=== PATIENT | female | born 1945 | race Caucasian/White ===

== ENCOUNTER 2017-08-08 09:53 | Inpatient (IN) ==
[2017-08-08] MEDS ORDERED: Ipratropium/Albuterol Neb 3 ML IH ONE (10:00)
--- NOTE | 2017-08-08 10:15 | Emergency Department Note ---
Disposition Clinical Impression: NSTEMI (non-ST elevated myocardial infarction) Congestive heart failure Qualifiers: Congestive heart failure type: unspecified congestive heart failure type Congestive heart failure chronicity: acute Qualified Code(s): I50.9 - Heart failure, unspecified Disposition: Admitted As Inpatient Condition: Fair Time of Disposition: 12:34 SOB HPI - General Chief Complaint: ED Shortness of Breath/Dyspnea Stated Complaint: MANJIT Time Seen by Provider: 08/08/17 10:00 Source: patient Limitations: no limitations Nursing Notes Reviewed: Yes Vital Signs Reviewed: Yes - History of Present Illness Ms. John, a 71-year-old female, presents from home for evaluation of her dyspnea. Onset 3 weeks ago and progressive right. Patient has low-grade and he temperatures, chills. She notes increased swelling of her bilateral lower extremities. PMH: Remote cancer, diabetes type 2, hypertension, hyperlipidemia. No history CAD or ACS. No history of CHF. No history COPD, asthma, emphysema. - Related Data Home Medications Medication Instructions Recorded Confirmed Amlodipine Besylate 10 mg PO DAILY 08/08/17 08/08/17 Amoxicillin/Clavulanate [Augmentin] 875 mg PO BID 08/08/17 08/08/17 Aspirin [Lo-Dose Aspirin EC] 81 mg PO DAILY 08/08/17 08/08/17 Cyclobenzaprine [Flexeril] 10 mg PO TID 08/08/17 08/08/17 Gabapentin [Neurontin] 300 mg PO HS 08/08/17 08/08/17 Losartan Potassium [Cozaar] 100 mg PO DAILY 08/08/17 08/08/17 Pioglitazone HCl [Actos] 30 mg PO DAILY 08/08/17 08/08/17 Polyethylene Glycol 3350 [MiraLAX 1 scoop PO DAILY 08/08/17 08/08/17 Powder Bulk 17.9 Oz] Potassium Chloride [Klor-Con 10] 10 meq PO DAILY 08/08/17 08/08/17 Sertraline [Zoloft] 50 mg PO DAILY 08/08/17 08/08/17 Simvastatin [Zocor] 40 mg PO HS 08/08/17 08/08/17 Tramadol HCl [Ultram] 50 mg PO QID PRN 08/08/17 08/08/17 hydroCHLOROthiazide 25 mg PO DAILY 08/08/17 08/08/17 [Hydrochlorothiazide] Allergies Allergy/AdvReac Type Severity Reaction Status Date / Time codeine Allergy Rash Verified 08/08/17 09:56 All systems ED: reviewed and negative except as stated. Review of Systems: As Per HPI Past Medical History - Past Medical History Medical history: Reports: cancer, diabetes Psychiatric history: Reports: no psych history - Social History Smoking Status: Former smoker Alcohol use: Reports: none Drug use: Reports: none Physical Exam Vital Signs Reviewed General: Patient is alert, oriented, and in moderate respiratory distress-she is hypoxic on room air to 80%, tachycardic, tachypneic. HEENT: No facial asymmetry. Head is normocephalic and atraumatic. PERRLA, EOMI. oral mucosa moist. Trachea midline. Cardiovascular: Heart tachycardic rate and regular rhythm without clicks, rubs, gallops, or murmurs. No JVD. PMI nondisplaced. Plus bilateral pitting edema. Bilateral radial and posterior tibial pulses 2/40. Respiratory: Symmetric chest rise with good respiratory effort. Bilateral breath sounds are clear without wheezing, crackles, or rhonchi. Abdomen: Obese. Bowel sounds present normoactive x-4 quadrants. Abdomen is soft, nondistended, and nontender. Neuro: GCS 15. Skin: Warm, dry, intact. Psych: Patient's affect is appropriate for situation. - General Limitations: no limitations General appearance: alert, in no apparent distress Course Course Narrative: SIRS (+) via tachypnea, tachycardia. Clinically suspect acute exacerbation of previously undiagnosed congestive heart failure. Will hold on IV fluid resuscitation at this time. Will place patient on BiPAP. Patient symptomatically is much improved on BiPAP. She has mild anxiety; provide a small dose of Valium. Patient's initial EKG shows flattening of EKGs due to and V3. Otherwise no ST- T changes. Troponin returned significantly elevated at 4.15. Repeat EKG shows the 1.5-[address] elevations in the preseptal leads with subtle reciprocal changes. 12:00 Discussed the patient with Dr. Coley. Discussed EKG changes, troponin, her lack of chest pain. He advised to call his STEMI alert. He came down to evaluate the patient and is agreeable to taken to [facility]. He has received aspirin and brilanta chewed and crushed at this time. 12:30 Dr. Cormier came down to the ER to see and evaluate the patient as well as her EKGs. We discussed her story with him. Not convincing for his STEMI however still concerning; they will take her to the catheter lab. He requests admission to medicine service with cardiology following. His gas the patient with Dr. Torres, the admitting hospitalist, who agrees to accept the patient for continued evaluation and management. Vital Signs Temperature 99.4 F 08/08/17 09:56 Pulse Rate 114 08/08/17 09:56 Respiratory Rate 36 08/08/17 09:56 Blood Pressure 120/86 08/08/17 09:56 O2 Sat by Pulse Oximetry 92 08/08/17 09:56 Temperature 99.4 F 08/08/17 09:56 Pulse Rate 105 08/08/17 12:41 Respiratory Rate 27 08/08/17 12:41 Blood Pressure 119/74 08/08/17 12:41 O2 Sat by Pulse Oximetry 97 08/08/17 12:41 Oxygen Delivery Oxygen Delivery Bipap Shortness of Breath/Dyspnea - MDM Narrative Medical decision making narrative: I examined this patient and my medical decision-making was reviewed with the Resident Physician. I agree with the documented findings, disposition and treatment plan as described except to the extent set forth below. Patient seen and evaluated by Dr. Mansfield and myself, I agree with his evaluation and management plan, supervising care the patient's stay. Patient presents today with increasing dyspnea edema in the lower ankles and chest discomfort but no chest pain. No abdominal pain no headache no back pain. Per her history it sounds like she has a history of CHF in the past. Going to do a workup, chest x -ray labs EKG and then reassess. Most likely she will need admission. Starting her on BiPAP at this point. She is in agreement with this plan as is family. 1004 hrs.: Patient EKG performed shows a sinus tachycardia with PVCs, a lot of movement artifact. QRS is 71 QTc is 322 she has global low voltage. She does have what appears to be some elevation in V1 through V2 but due to the baseline pattern is cannot be determined. She was having no chest pain at that time. Compared with an old EKG and shows potential changes however that her EKG is from 1996 1100 hrs.: We will add on a lactate and we are holding off on fluids even though she qualifies for Sirs criteria as she does not look toxic, she is in CHF and I do not want a further fluid overload her. Spoke with hospitalist he is agreeing to her admission. As is the patient. 1156 hrs.: Patient is a second EKG performed shows a sinus tachycardia rate 106 has PVCs. Has a QRS of [address] segment elevation V1 through V4 which is new. She still is no chest pain. Paging cardiology. Chest X-Ray 08/08/17 10:00 IMPRESSION: Cardiomegaly with suspected dependent pulmonary edema in the mid and lower lung donnelly. There may also be a small right-sided pleural effusion at the costophrenic angle. D/ / Sarbjit Salvador MD / Sarbjit Salvador MD Interpreting Provider: Sarbjit Salvador MD 1205: Patient's troponin is elevated. She denies any chest pain this time. She has gotten aspirin. Her lactate elevated which is most likely from that. But we will add on a four-hour lactate in case she is septic. I do not see signs of infection. I do not a fluid overload her with her pulmonary edema that surety has. I menaced ache with the flipping machine operator and then to the hospitalist. Hospitalist is are not aware of the case. We will see how hospitalist and cardiology wants to proceed. Impression is acute CHF, elevated lactate, elevated troponin most likely non-STEMI. Repeating EKG at this time. 1210 hrs.: Spoke with Dr. العراقي, he said despite her not having pain with her troponin and her EKG did go ahead and do a STEMI alert. Also paged vascular access that she has been a need a second line in. Updating the patient. Patient did have her medications today. We will start her on heparin and she will go to [facility] and then admission. Impression is in STEMI and acute CHF. Patient's critical care time exclusive a separately billable procedures is 50 minutes. 1220 hrs.: Dr. العراقي's come down and seen the patient and EKGs he has had taken to the [facility]. They have ordered meds has second IV in place and will go straight catheter lab at this time and that admission. 1320 hrs.: Spoke with Dr. Torres who is agreed to the admission. He wanted to get an ABG, if that looks good he think she can go to stepdown instead of ICU. That is ordered at this time. - Lab Data Result diagrams: 08/08/17 11:08/08/17 11:01 Lab Results 08/08/17 08/08/17 08/08/17 Range/Units 11: 11: 11: WBC 10.5 (4.3-11.1) K/mcL RBC 3.17 L (3.82-4.97) M/mcL Hgb 9.0 L (11.5-15.4) g/dL Hct 28.4 L (35.3-44.9) % MCV 89.6 (83.0-100.0) fL MCH 28.4 (28.0-33.3) pg MCHC 31.7 (31.6-35.5) g/dL RDW 14.6 H (11.5-14.5) % Plt Count 330 (140-400) K/mcL MPV 10.4 (9.4-12.4) fL Immature Gran % 2.3 (0-4) % Seg Neutrophils % 78.1 % Lymphocytes % 12.0 % Monocytes % 7.0 % Eosinophils % 0.1 % Basophils % 0.5 % Neutrophils # 8.2 (1.6-8.9) K/mcL Lymphocytes # 1.3 (0.6-4.6) K/mcL Monocytes # 0.7 (0.0-1.3) K/mcL Eosinophils # 0.0 (0.0-0.6) K/mcL Basophils # 0.1 (0.0-0.2) K/mcL Nucleated RBCs/100 WBC 0.2 H (0) /100 WBC APTT (26.0-36.0) Seconds Sodium 135 L (136-145) mEq/L Potassium 3.7 (3.5-4.5) mEq/L Chloride 98 (98-109) mEq/L Carbon Dioxide 23 (19-29) mEq/L BUN 31 H (7-20) mg/dL Creatinine 1.66 H (0.57-1.11) mg/dL Est GFR ( Amer) 37 L (> 60) Est GFR (Non-Af Amer) 31 L (> 60) BUN/Creatinine Ratio 19 (6-26) Glucose 271 H (70-99) mg/dL Calculated Osmolality 296 (280-300) Lactic Acid (0.5-2.2) mmol/L Calcium 9.3 (8.6-10.8) mg/dL Phosphorus 3.4 (2.3-4.7) mg/dL Magnesium 2.0 (1.6-2.6) mg/dL Total Bilirubin 0.6 (0.2-1.2) mg/dL Direct Bilirubin 0.3 (0.0-0.5) mg/dL Indirect Bilirubin 0.3 (0.0-1.2) mg/dL AST 32 (5-34) Units/L ALT 26 (0-55) Units/L Alkaline Phosphatase 109 (38-126) Units/L Troponin I 4.15 H* (0-0.03) ng/mL B-Natriuretic Peptide (0-100) pg/mL Serum Total Protein 7.8 (6.0-8.3) g/dL Albumin 3.0 L (3.5-5.0) g/dL Globulin 4.8 H (2.4-3.5) g/dL Albumin/Globulin Ratio 0.6 L (1.1-2.2) 08/08/17 08/08/17 08/08/17 Range/Units 11:01 11:01 11:01 WBC (4.3-11.1) K/mcL RBC (3.82-4.97) M/mcL Hgb (11.5-15.4) g/dL Hct (35.3-44.9) % MCV (83.0-100.0) fL MCH (28.0-33.3) pg MCHC (31.6-35.5) g/dL RDW (11.5-14.5) % Plt Count (140-400) K/mcL MPV (9.4-12.4) fL Immature Gran % (0-4) % Seg Neutrophils % % Lymphocytes % % Monocytes % % Eosinophils % % Basophils % % Neutrophils # (1.6-8.9) K/mcL Lymphocytes # (0.6-4.6) K/mcL Monocytes # (0.0-1.3) K/mcL Eosinophils # (0.0-0.6) K/mcL Basophils # (0.0-0.2) K/mcL Nucleated RBCs/100 WBC (0) /100 WBC APTT 30.6 (26.0-36.0) Seconds Sodium (136-145) mEq/L Potassium (3.5-4.5) mEq/L Chloride (98-109) mEq/L Carbon Dioxide (19-29) mEq/L BUN (7-20) mg/dL Creatinine (0.57-1.11) mg/dL Est GFR ( Amer) (> 60) Est GFR (Non-Af Amer) (> 60) BUN/Creatinine Ratio (6-26) Glucose (70-99) mg/dL Calculated Osmolality (280-300) Lactic Acid 2.7 H (0.5-2.2) mmol/L Calcium (8.6-10.8) mg/dL Phosphorus (2.3-4.7) mg/dL Magnesium (1.6-2.6) mg/dL Total Bilirubin (0.2-1.2) mg/dL Direct Bilirubin (0.0-0.5) mg/dL Indirect Bilirubin (0.0-1.2) mg/dL AST (5-34) Units/L ALT (0-55) Units/L Alkaline Phosphatase (38-126) Units/L Troponin I (0-0.03) ng/mL B-Natriuretic Peptide 1970 H (0-100) pg/mL Serum Total Protein (6.0-8.3) g/dL Albumin (3.5-5.0) g/dL Globulin (2.4-3.5) g/dL Albumin/Globulin Ratio (1.1-2.2) 08/08/17 Range/Units 12:24 WBC (4.3-11.1) K/mcL RBC (3.82-4.97) M/mcL Hgb (11.5-15.4) g/dL Hct (35.3-44.9) % MCV (83.0-100.0) fL MCH (28.0-33.3) pg MCHC (31.6-35.5) g/dL RDW (11.5-14.5) % Plt Count (140-400) K/mcL MPV (9.4-12.4) fL Immature Gran % (0-4) % Seg Neutrophils % % Lymphocytes % % Monocytes % % Eosinophils % % Basophils % % Neutrophils # (1.6-8.9) K/mcL Lymphocytes # (0.6-4.6) K/mcL Monocytes # (0.0-1.3) K/mcL Eosinophils # (0.0-0.6) K/mcL Basophils # (0.0-0.2) K/mcL Nucleated RBCs/100 WBC (0) /100 WBC APTT (26.0-36.0) Seconds Sodium (136-145) mEq/L Potassium (3.5-4.5) mEq/L Chloride (98-109) mEq/L Carbon Dioxide (19-29) mEq/L BUN (7-20) mg/dL Creatinine (0.57-1.11) mg/dL Est GFR ( Amer) (> 60) Est GFR (Non-Af Amer) (> 60) BUN/Creatinine Ratio (6-26) Glucose (70-99) mg/dL Calculated Osmolality (280-300) Lactic Acid 2.2 (0.5-2.2) mmol/L Calcium (8.6-10.8) mg/dL Phosphorus (2.3-4.7) mg/dL Magnesium (1.6-2.6) mg/dL Total Bilirubin (0.2-1.2) mg/dL Direct Bilirubin (0.0-0.5) mg/dL Indirect Bilirubin (0.0-1.2) mg/dL AST (5-34) Units/L ALT (0-55) Units/L Alkaline Phosphatase (38-126) Units/L Troponin I (0-0.03) ng/mL B-Natriuretic Peptide (0-100) pg/mL Serum Total Protein (6.0-8.3) g/dL Albumin (3.5-5.0) g/dL Globulin (2.4-3.5) g/dL Albumin/Globulin Ratio (1.1-2.2)
[2017-08-08] MEDS ORDERED: diazePAM 10 MG/2 ML SYRINGE IVP STA (10:40)
[2017-08-08 11:11] LABS: Basophils # 0.1 K/mcL (0.0-0.2); Basophils % 0.5 %; Eosinophils % 0.1 %; Hematocrit 28.4 % (35.3-44.9); Immature Granulocytes % 2.3 % (0-4); Lymphocytes # 1.3 K/mcL (0.6-4.6); Mean Corpuscular HGB Conc 31.7 g/dL (31.6-35.5); Mean Corpuscular Hemoglobin 28.4 pg (28.0-33.3); Mean Corpuscular Volume 89.6 fL (83.0-100.0); Mean Platelet Volume 10.4 fL (9.4-12.4); Monocytes # 0.7 K/mcL (0.0-1.3); Neutrophils # 8.2 K/mcL (1.6-8.9); Nucleated Red Blood Cells 0.2 /100 WBC (0); Platelet Count 330 K/mcL (140-400); Red Blood Count 3.17 M/mcL (3.82-4.97); Red Cell Distribution Width 14.6 % (11.5-14.5); Segmented Neutrophils % 78.1 %
[2017-08-08 11:24] LABS: Calcium 9.3 mg/dL (8.6-10.8); Potassium 3.7 mEq/L (3.5-4.5)
[2017-08-08] MEDS ORDERED: Aspirin 81 MG TAB.CHEW PO ONE (11:50)
[2017-08-08 12:08] LABS: Activated Partial Thrombo Time 30.6 Seconds (26.0-36.0)
[2017-08-08 12:12] LABS: Albumin/Globulin Ratio 0.6 (1.1-2.2); Bilirubin,Direct 0.3 mg/dL (0.0-0.5); Bilirubin,Indirect 0.3 mg/dL (0.0-1.2); Bilirubin,Total 0.6 mg/dL (0.2-1.2); Globulin 4.8 g/dL (2.4-3.5); Phosphorous 3.4 mg/dL (2.3-4.7); Total Protein 7.8 g/dL (6.0-8.3)
[2017-08-08] MEDS ORDERED: *HR* Ticagrelor 90 MG TABLET ONE (12:13)
[2017-08-08] MEDS ORDERED: *HR* Heparin 5,000 UNIT/ML VIAL ONE (12:13)
[2017-08-08] MEDS ORDERED: Aspirin 81 MG TAB.CHEW ONE (12:14)
[2017-08-08] MEDS ORDERED: Furosemide 40 MG/4 ML VIAL IVP ONE (13:54)
[2017-08-08 13:56] LABS: ABG Base Excess 1 mEq/L (-2 to 3); ABG HCO3 24 mEq/L (21-27); ABG Oxygen Saturation 98 % (95-98); ABG PCO2 30 mmHg (35-45); ABG PH 7.51 pH Units (7.32-7.45); ABG PO2 87 mmHg (85-104); ABG TCO2 25 mEq/L (20-26)
[2017-08-08] MEDS ORDERED: Furosemide 20 MG/2 ML VIAL IVP ONE (13:58)
[2017-08-08] MEDS ORDERED: *HR* Heparin 5,000 UNIT/ML VIAL IVP ONE (14:09)
[2017-08-08] MEDS ORDERED: *HR* Heparin 5,000 UNIT/ML VIAL IVP PRN (14:09)
[2017-08-08] MEDS ORDERED: Naloxone 0.4 MG/ML INJ IVP PRN (14:09)
[2017-08-08] MEDS ORDERED: *HR* LORazepam 2 MG/ML VIAL IVP PRN (14:16)
[2017-08-08] MEDS ORDERED: Ipratropium/Albuterol Neb 3 ML IH PRN (14:18)
[2017-08-08] MEDS ORDERED: *HR* OxyCODONE Immed Rel 5 MG TABLET PO PRN (14:19)
[2017-08-08] MEDS ORDERED: Dextrose Gel 15 GM PO PRN ×2 (14:24)
[2017-08-08] MEDS ORDERED: D5% in Water 1,000 ML IVC PRN (14:24)
[2017-08-08] MEDS ORDERED: *HR* Dextrose 50 % in Water (Syg) 50 ML SYRINGE IVP PRN (14:24)
[2017-08-08] MEDS ORDERED: Potassium Phosphate 44 MEQ in 0.9 % Sodium Chloride 250 ML IVPB PRN (14:26)
[2017-08-08] MEDS ORDERED: Aspirin Enteric Coated 81 MG Tablet PO SCH (14:30)
--- NOTE | 2017-08-08 14:31 | Pulmonology History & Physical ---
<RussellSmith nelson - Last Filed: 08/08/17 14:29> Date of Encounter: 08/08/17 Time of Encounter: 14:29 Assessment and Plan (1) Acute respiratory failure Current visit: Yes Status: Acute Patient presented with acute shortness of breath as well as hypoxia requiring oxygen supplementation. Likely multifactorial with pulmonary edema, community- acquired pneumonia, myocardial ischemia, anxiety all contributing. Patient has responded well to oxygen supplementation and states that she feels much better when using BiPAP, we will continue BiPAP when necessary. Duonebs every 6 when necessary. Qualifiers: Respiratory failure complication: hypoxia Qualified Code(s): J96.01 - Acute respiratory failure with hypoxia (2) NSTEMI (non-ST elevated myocardial infarction) Current visit: Yes Status: Acute Patient presented with acute shortness of breath as discussed above. EKG and troponins were performed in the emergency department, troponin was elevated at 4 , EKG shows ST elevation in V2, V3. Patient does have Q waves. Patient was evaluated by cardiology in the emergency department and felt that she was not a candidate for cath at this time given her likely old ME with Q waves present as well as her inability to lie flat due to pulmonary edema and anxiety. Patient was given aspirin in the emergency department, will continue with aspirin 81 mg daily, as well as Lipitor 40 mg daily. Patient will be placed on a low-dose heparin drip. Trend troponins. Check stat echocardiogram. Cardiology has been consulted. (3) Community acquired pneumonia Current visit: Yes Status: Acute Patient presents with shortness of breath, cough with yellowish-green sputum. No leukocyte ptosis present, chest x-ray shows bilateral opacifications, likely multifactorial with infiltrate and urinary edema. Will place on broad-spectrum antibiotics with Rocephin and Levaquin. Qualifiers: Laterality: unspecified laterality Qualified Code(s): J18.9 - Pneumonia, unspecified organism (4) Jeuoy-yh-aoifakv kidney injury Current visit: Yes Status: Acute Patient presents with elevated creatinine at 1.66. Baseline appears to be around 1.3. Nonoliguric. We will diuresis due to fluid overload. Heaton has been placed for strict I's and O's. Continue monitor creatinine and urine output. Qualifiers: Acute renal failure type: unspecified Chronic kidney disease stage: stage 3 (moderate) Qualified Code(s): N17.9 - Acute kidney failure, unspecified; N18.3 - Chronic kidney disease, stage 3 (moderate); N18.3 - Chronic kidney disease, stage 3 (moderate) (5) Anxiety Current visit: Yes Status: Acute Patient presents with significant anxiety due to her underlying medical conditions as discussed above. We will give Ativan 1 mg every 6 as needed and iodine. Patient feels better with BiPAP so we will use this as needed. (6) Diabetes mellitus type 2 in obese Current visit: Yes Status: Acute Blood sugar elevated on presentation. We will hold all diabetic medications and institute sliding scale insulin. Continue monitor blood sugars and adjust as needed. (7) Hypertension Current visit: Yes Status: Acute Qualifiers: Hypertension type: essential hypertension Qualified Code(s): I10 - Essential (primary) hypertension (8) DVT prophylaxis Current visit: Yes Status: Acute Patient is on a low-dose heparin drip, further DVT prophylaxis is not indicated. History of Present Illness Chief complaint: Dyspnea HPI: Ms. John is a 71 year old female with history of obesity, hypertension, type 2 diabetes who presents with shortness of breath. Patient states that her shortness of breath has been going on for about a month. She states it is worse when lying flat. She reports a cough with yellowish-green sputum. She denies any chest pain. She reports increased swelling in her lower extremities. She has fever, chills, chest pain, nausea, vomiting, diarrhea, abdominal pain. Past Med Surg Social Fam HX - Past Medical History Medical history: arthritis, cancer, diabetes, hypertension Psychiatric history: anxiety - Past Surgical History Surgical History: appendectomy, cholecystectomy, hysterectomy - Social History Smoking Status: Former smoker Alcohol use: none Drug use: none - Family History Son Living Status: Age at : 34 Hx Family Cancer: Yes (lymphoma) Medications and Allergies Amlodipine Besylate 10 mg PO DAILY 08/08/17 [History] Amoxicillin/Clavulanate [Augmentin] 875 mg PO BID 08/08/17 [History] Aspirin [Lo-Dose Aspirin EC] 81 mg PO DAILY 08/08/17 [History] Cyclobenzaprine [Flexeril] 10 mg PO TID 08/08/17 [History] Gabapentin [Neurontin] 300 mg PO HS 08/08/17 [History] Losartan Potassium [Cozaar] 100 mg PO DAILY 08/08/17 [History] Pioglitazone HCl [Actos] 30 mg PO DAILY 08/08/17 [History] Polyethylene Glycol 3350 [MiraLAX Powder Bulk 17.9 Oz] 1 scoop PO DAILY [History] Potassium Chloride [Klor-Con 10] 10 meq PO DAILY 08/08/17 [History] Sertraline [Zoloft] 50 mg PO DAILY 08/08/17 [History] Simvastatin [Zocor] 40 mg PO HS 08/08/17 [History] Tramadol HCl [Ultram] 50 mg PO QID PRN 08/08/17 [History] hydroCHLOROthiazide [Hydrochlorothiazide] 25 mg PO DAILY 08/08/17 [History] 3 Allergy/AdvReac Type Severity Reaction Status Date / Time codeine Allergy Rash Verified 08/08/17 09:56 All Systems: A 10-system review of systems was performed and is negative for pertinent findings except as documented above in the HPI. - Constitutional Constitutional: no chills, no fever(s) - EENT Nose, mouth and throat: no sinus pain, no sinus pressure, no sore throat - Cardiovascular Cardiovascular: dyspnea, dyspnea on exertion, edema, orthopnea, no chest pain, no irregular heart rhythm, no paroxysmal nocturnal dyspnea, no syncope - Respiratory Respiratory: cough, dyspnea, dyspnea on exertion, chest congestion, excessive phlegm production, change in phlegm color, no hemoptysis, no wheezing - Gastrointestinal Gastrointestinal: no diarrhea, no nausea, no vomiting - Genitourinary Genitourinary: no dysuria - Musculoskeletal Musculoskeletal: no stiffness, no tingling - Neurological Neurological: no numbness, no tingling - Psychiatric Psychiatric: anxiety - Endocrine Endocrine: polydipsia, polyuria Physical Examination Vital Signs: Vital Signs, Last 4 Hours Temp Pulse Resp BP Pulse Ox 08/08/17 13:22 105 08/08/17 13:10 99.6 F 110 26 128/63 97 08/08/17 12:41 105 27 119/74 97 08/08/17 12:36 106 31 97/76 98 General appearance: appears uncomfortable ENT: oropharynx moist Neck: supple Effort: mildly labored Auscultation: bilateral: rales (Bibasilar) Cardiovascular: regular rate and rhythm Gastrointestinal: normoactive bowel sounds, soft, non-tender, non-distended Extremities: no cyanosis, no clubbing, edema (2+ lower extremity bilaterally) normal mental status, non-focal exam anxious Results - Laboratory Findings CBC and BMP: 08/08/17 11:01 08/08/17 11:01 ABG ABG pH 7.51 pH Units (7.32-7.45) H 08/08/17 13:52 ABG pCO2 30 mmHg (35-45) L 08/08/17 13:52 ABG pO2 87 mmHg (85-104) 08/08/17 13:52 ABG O2 Saturation 98 % (95-98) 08/08/17 13:52 Abnormal lab findings: Abnormal lab results RBC 3.17 M/mcL (3.82-4.97) L 08/08/17 11:01 Hgb 9.0 g/dL (11.5-15.4) L 08/08/17 11:01 Hct 28.4 % (35.3-44.9) L 08/08/17 11:01 RDW 14.6 % (11.5-14.5) H 08/08/17 11:01 Nucleated RBCs/100 WBC 0.2 /100 WBC (0) H 08/08/17 11:01 ABG pH 7.51 pH Units (7.32-7.45) H 08/08/17 13:52 ABG pCO2 30 mmHg (35-45) L 08/08/17 13:52 Sodium 135 mEq/L (136-145) L 08/08/17 11:01 BUN 31 mg/dL (7-20) H 08/08/17 11:01 Creatinine 1.66 mg/dL (0.57-1.11) H 08/08/17 11:01 Est GFR ( Amer) 37 (> 60) L 08/08/17 11:01 Est GFR (Non-Af Amer) 31 (> 60) L 08/08/17 11:01 Glucose 271 mg/dL (70-99) H 08/08/17 11:01 POC Glucose 290 (58-89) H 08/08/17 13:17 Troponin I 4.39 ng/mL (0-0.03) H* 08/08/17 12:34 B-Natriuretic Peptide 1970 pg/mL (0-100) H 08/08/17 11:01 Albumin 3.0 g/dL (3.5-5.0) L 08/08/17 11:01 Globulin 4.8 g/dL (2.4-3.5) H 08/08/17 11:01 Albumin/Globulin Ratio 0.6 (1.1-2.2) L 08/08/17 11:01 <Laith Crain S - Last Filed: 08/08/17 19:18> Date of Encounter: 08/08/17 History of Present Illness HPI: Ms. John is a 71 year old female All Systems: A 10-system review of systems was performed and is negative for pertinent findings except as documented above in the HPI. Physical Examination Vital Signs: Vital Signs, Last 4 Hours Pulse Resp BP Pulse Ox 08/08/17 17:00 97 22 111/74 100 08/08/17 16:00 101 24 129/83 100 08/08/17 15:00 101 20 115/88 98 08/08/17 14:00 105 24 111/77 100 08/08/17 13:52 37 100 Results - Laboratory Findings CBC and BMP: 08/08/17 17:15 08/08/17 17:15 ABG ABG pH 7.51 pH Units (7.32-7.45) H 08/08/17 13:52 ABG pCO2 30 mmHg (35-45) L 08/08/17 13:52 ABG pO2 87 mmHg (85-104) 08/08/17 13:52 ABG O2 Saturation 98 % (95-98) 08/08/17 13:52 PT/INR, D-dimer PT 14.7 Seconds (9.4-12.1) H 08/08/17 11:01 Abnormal lab findings: Abnormal lab results RBC 3.17 M/mcL (3.82-4.97) L 08/08/17 11:01 Hgb 9.0 g/dL (11.5-15.4) L 08/08/17 11:01 Hct 28.4 % (35.3-44.9) L 08/08/17 11:01 RDW 14.6 % (11.5-14.5) H 08/08/17 11:01 Nucleated RBCs/100 WBC 0.2 /100 WBC (0) H 08/08/17 11:01 PT 14.7 Seconds (9.4-12.1) H 08/08/17 11:01 ABG pH 7.51 pH Units (7.32-7.45) H 08/08/17 13:52 ABG pCO2 30 mmHg (35-45) L 08/08/17 13:52 Sodium 135 mEq/L (136-145) L 08/08/17 11:01 BUN 31 mg/dL (7-20) H 08/08/17 11:01 Creatinine 1.66 mg/dL (0.57-1.11) H 08/08/17 11:01 Est GFR ( Amer) 37 (> 60) L 08/08/17 11:01 Est GFR (Non-Af Amer) 31 (> 60) L 08/08/17 11:01 Glucose 271 mg/dL (70-99) H 08/08/17 11:01 POC Glucose 274 (58-89) H 08/08/17 17:15 Troponin I 4.39 ng/mL (0-0.03) H* 08/08/17 12:34 B-Natriuretic Peptide 1970 pg/mL (0-100) H 08/08/17 11:01 Albumin 3.0 g/dL (3.5-5.0) L 08/08/17 11:01 Globulin 4.8 g/dL (2.4-3.5) H 08/08/17 11:01 Albumin/Globulin Ratio 0.6 (1.1-2.2) L 08/08/17 11:01 Urine Protein 30 mg/dL (Neg-Trace) H 08/08/17 14:23 Urine Bilirubin Small (Negative) H 08/08/17 14:23 Ur Leukocyte Esterase Small (Negative) H 08/08/17 14:23 Urine Microscopic RBC 5-15 per hpf (0-3) H 08/08/17 14:23 Urine Microscopic WBC 5-15 per hpf (0-3) H 08/08/17 14:23 Ur Squamous Epith Cells Many per lpf (None-Few) H 08/08/17 14:23 Ur Culture Indicated? YES (NO) A 08/08/17 14:23 - Attending Attestation I saw the patient with the resident agree with History and Physical exam findings. Labs and Radiology were reviewed BIPAP S/T 14/05 FUNDING SPECIALIST: Patient is conscious oriented x3 following commands NECK : No JVD appreciated Pulmonary : Patient has hypoxic respiratory failure has moderate respiratory distress secondary to acute exacerbation of heart failure CXR showed more likely pulmonary edema with some right lower lobe opacity patient is tolerating BIPAP well will continue i dont think presentation fits with COPD exacerbation Cardiac : CHF exacerbation most likley due to NSTEMI , cardiology not to cath now will start on Heparin will continue medical management will continue gentle diuresis as hemodynamics and kidney function tolerates Nutrition/GI: Patient is NPO , PPI prophylaxis Renal : Acute on Chronic Kidney injury can be due to Cardiorenal syndrome Heme onc : No acute issues Endo: Diabetes on insulin ID : Patient had increased sputum and production when she started to have CHF symptoms Musculo skeletal / skin issues : No acute issues Disposition : Patient critical condition high chance of cardiopulmonary decline Code status: Full Code Family/POA: Daughter . Spent 35 minutes of Critical time spent in making decisions to prevent further vital organ deterioration.Patient continued to need critical care monitoring.
[2017-08-08 14:32] LABS: Bilirubin,Urine Small (Negative); Blood,Urine Negative (Negative); Color,Urine Dark Yellow (Yellow); Glucose,Urine (UA) Normal (Normal); Ketones,Urine Negative (Negative); Leukocyte Esterase,Urine Small (Negative); Nitrite,Urine Negative (Negative); PH,Urine 5.5 pH Units (5.0-8.0); Protein,Urine 30 mg/dL (Neg-Trace); Specific Gravity,Urine 1.025 (1.010-1.025); Urobilinogen,Urine Normal (Normal)
[2017-08-08 14:36] LABS: Bacteria,Urine None Seen per hpf (None-Few); Hyaline Casts,Urine None Seen per lpf (None-Few); Squamous Epithelial Cell,Urine Many per lpf (None-Few)
[2017-08-08 14:40] LABS: Clarity,Urine Clear (Clear)
[2017-08-08 14:43] LABS: INR 1.4; Prothrombin Time 14.7 Seconds (9.4-12.1)
--- NOTE | 2017-08-08 14:46 | Cardiology Consult Note ---
Date of Encounter: 08/08/17 Time of Encounter: 14:30 Assessment and Plan (1) Congestive heart failure Current Visit: Yes Status: Acute Agree with diuresis. TTE ordered for EF evaluation. Suspect subacute event leading up to today's presentation. Qualifiers: Congestive heart failure type: unspecified congestive heart failure type Congestive heart failure chronicity: acute Qualified Code(s): I50.9 - Heart failure, unspecified (2) NSTEMI (non-ST elevated myocardial infarction) Current Visit: Yes Status: Acute Likely demand ischemia, but will continue to trend troponin. Aspirin and brilinta given, continue heparin drip. Code(s): I21.4 - Non-ST elevation (NSTEMI) myocardial infarction SNOMED Code(s ): 428255328 (3) Hypertension Current Visit: Yes Status: Acute Continue medical management Qualifiers: Hypertension type: essential hypertension Qualified Code(s): I10 - Essential (primary) hypertension Discussion w patient/family: The assessment and plan as outlined above was discussed with the patient and/or family members who expressed understanding and agreement. All questions were answered. Thank you for involving us in the care of your patient. Please call with any questions. History of Present Illness Consult date: 08/08/17 Consult reason: Systolic CHF Chief complaint: Dyspnea History of present illness: Ms. John is a 71 year old female diabetic CKD 3 with no previous cardiac history presents with dyspnea that has started approximately a month ago but acutely worsened today. She denies chest/jaw/arm discomfort or palpitations. She notes orthopnea and edema. The edema she blames on Zoloft. Upon arrival here her breathing has improved with BIPAP. Past Med Surg Social Fam HX - Past Medical History Medical history: arthritis, cancer, diabetes, hypertension Psychiatric history: anxiety - Past Surgical History Surgical History: appendectomy, cholecystectomy, hysterectomy - Social History Smoking Status: Former smoker Alcohol use: none Drug use: none - Family History Son Living Status: Age at : 34 Hx Family Cancer: Yes (lymphoma) Medications and Allergies Amlodipine Besylate 10 mg PO DAILY 08/08/17 [History] Amoxicillin/Clavulanate [Augmentin] 875 mg PO BID 08/08/17 [History] Aspirin [Lo-Dose Aspirin EC] 81 mg PO DAILY 08/08/17 [History] Cyclobenzaprine [Flexeril] 10 mg PO TID 08/08/17 [History] Gabapentin [Neurontin] 300 mg PO HS 08/08/17 [History] Losartan Potassium [Cozaar] 100 mg PO DAILY 08/08/17 [History] Pioglitazone HCl [Actos] 30 mg PO DAILY 08/08/17 [History] Polyethylene Glycol 3350 [MiraLAX Powder Bulk 17.9 Oz] 1 scoop PO DAILY [History] Potassium Chloride [Klor-Con 10] 10 meq PO DAILY 08/08/17 [History] Sertraline [Zoloft] 50 mg PO DAILY 08/08/17 [History] Simvastatin [Zocor] 40 mg PO HS 08/08/17 [History] Tramadol HCl [Ultram] 50 mg PO QID PRN 08/08/17 [History] hydroCHLOROthiazide [Hydrochlorothiazide] 25 mg PO DAILY 08/08/17 [History] 3 Allergy/AdvReac Type Severity Reaction Status Date / Time codeine Allergy Rash Verified 08/08/17 09:56 All Systems Review: A 10-system review of systems was performed and is negative for pertinent findings except as documented above in the HPI. - Constitutional Constitutional: no chills, no fever(s) - EENT Eyes: no blurred vision, no loss of vision Nose, mouth and throat: no bleeding gums, no epistaxis - Cardiovascular Cardiovascular: no chest pain at rest, no chest pain with exertion - Respiratory Respiratory: dyspnea, no hemoptysis - Gastrointestinal Gastrointestinal: no hematemesis, no hematochezia - Genitourinary Genitourinary: no hematuria, no nocturia - Musculoskeletal Musculoskeletal: no muscle cramps, no muscle weakness - Integumentary Integumentary: no erythema, no unusual bruising - Neurological Neurological: no loss of vision, no syncope - Psychiatric Psychiatric: no hallucinations, no panic attacks - Hematological/Lymphatic Hematologic/Lymphatic: no easy bleeding, no easy bruising Physical Examination Vital Signs, Last 4 Hours Temp Pulse Resp BP Pulse Ox 08/08/17 13:22 105 08/08/17 13:10 99.6 F 110 26 128/63 97 08/08/17 12:41 105 27 119/74 97 08/08/17 12:36 106 31 97/76 98 General: Conversant, Other (mild distress) HEENT: Atraumatic, Normocephaly Neck: No JVD Cardiac: Reg Rate and Rhythm, No Murmur Lungs: Other (bibasilar crackles, BL wheezes) Neuro: Alert and responsive Abdomen: Soft Skin: No rashes noted on visualized skin Musculoskeletal: No Chest Wall Tenderness Extremities: Other (1_ edema BL) Results 08/08/17 11:01 08/08/17 11:01 Lab Results 08/08/17 12:34 Troponin I 4.39 H* - EKG Interpretation EKG results cardiology: personally reviewed (SR, Q wave anteroseptal PR with ST elevation, age undetermined) Consult Discharge Plan - Plan Referrals: Augustin Eid DO [Primary Care Provider] -
[2017-08-08] MEDS ORDERED: Levofloxacin 750 MG/150 ML 750 MG/150 ML BAG IVPB SCH (15:00)
[2017-08-08] MEDS: cefTRIAXone 1,000 MG in Water for inj. (sterile) 10 ML IVP SCH (16:27)
[2017-08-08] MEDS: Heparin 25,000 UNIT/500 ML D5W 25,000 UNIT/500 ML MLS IVC SCH (16:29)
[2017-08-08] MEDS: Insulin LISPRO 300 UNITS/3 ML VIAL SQ SCH ×2 (17:20→23:27)
[2017-08-08 17:39] LABS: Basophils # 0.1 K/mcL (0.0-0.2); Basophils % 0.6 %; Eosinophils % 0.2 %; Hematocrit 24.8 % (35.3-44.9); Immature Platelets 3.6 % (1.1-6.1); Lymphocytes # 1.1 K/mcL (0.6-4.6); Lymphocytes % 10.8 %; Mean Corpuscular HGB Conc 32.3 g/dL (31.6-35.5); Mean Corpuscular Hemoglobin 28.7 pg (28.0-33.3); Mean Corpuscular Volume 88.9 fL (83.0-100.0); Mean Platelet Volume 10.4 fL (9.4-12.4); Monocytes % 9.3 %; Nucleated Red Blood Cells 0.2 /100 WBC (0); Platelet Count 302 K/mcL (140-400); Red Blood Count 2.79 M/mcL (3.82-4.97); Red Cell Distribution Width 14.6 % (11.5-14.5); Segmented Neutrophils % 77.1 %
[2017-08-08 17:41] LABS: Ionized Calcium 1.08 mmol/L (1.15-1.35)
[2017-08-08 17:46] LABS: Calcium 8.6 mg/dL (8.6-10.8); Magnesium 1.8 mg/dL (1.6-2.6); Phosphorous 3.5 mg/dL (2.3-4.7); Potassium 3.5 mEq/L (3.5-4.5)
--- NOTE | 2017-08-08 18:58 | Electrocardiograph Report ---
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
[2017-08-08] MEDS: Gabapentin 300 MG CAPSULE PO SCH ×2 (19:49→23:38)
[2017-08-08] MEDS ORDERED: Perflutren Lipid Microsphere 1.3 ML in 0.9 % Sodium Chloride 8.7 ML IVP ONE (19:57)
[2017-08-09] MEDS: *HR* Heparin 5,000 UNIT/ML VIAL IVP PRN ×3 (00:24→14:35)
[2017-08-09 03:25] LABS: Basophils # 0.1 K/mcL (0.0-0.2); Basophils % 0.5 %; Eosinophils # 0.1 K/mcL (0.0-0.6); Eosinophils % 1.1 %; Hematocrit 26.1 % (35.3-44.9); Hemoglobin 8.3 g/dL (11.5-15.4); Immature Granulocytes % 1.7 % (0-4); Lymphocytes % 9.3 %; Mean Corpuscular HGB Conc 31.8 g/dL (31.6-35.5); Mean Corpuscular Hemoglobin 28.6 pg (28.0-33.3); Mean Platelet Volume 10.4 fL (9.4-12.4); Monocytes % 8.9 %; Neutrophils # 8.6 K/mcL (1.6-8.9); Platelet Count 307 K/mcL (140-400); Red Cell Distribution Width 14.7 % (11.5-14.5); Segmented Neutrophils % 78.5 %
[2017-08-09 03:33] LABS: Ionized Calcium 1.14 mmol/L (1.15-1.35)
[2017-08-09 03:42] LABS: Albumin 2.7 g/dL (3.5-5.0); Albumin/Globulin Ratio 0.6 (1.1-2.2); Bilirubin,Direct 0.3 mg/dL (0.0-0.5); Bilirubin,Indirect 0.2 mg/dL (0.0-1.2); Bilirubin,Total 0.5 mg/dL (0.2-1.2); Calcium 8.9 mg/dL (8.6-10.8); Globulin 4.2 g/dL (2.4-3.5); Magnesium 2.1 mg/dL (1.6-2.6); Potassium 3.8 mEq/L (3.5-4.5); Total Protein 6.9 g/dL (6.0-8.3)
[2017-08-09 04:03] LABS: Phosphorous 3.5 mg/dL (2.3-4.7)
[2017-08-09] MEDS: Insulin LISPRO 300 UNITS/3 ML VIAL SQ SCH ×3 (04:54→18:18)
[2017-08-09 06:00] LABS: ABG Base Excess 7 mEq/L (-2 to 3); ABG HCO3 30 mEq/L (21-27); ABG Oxygen Saturation 97 % (95-98); ABG PCO2 32 mmHg (35-45); ABG PH 7.57 pH Units (7.32-7.45); ABG PO2 79 mmHg (85-104); ABG TCO2 31 mEq/L (20-26); Blood Gas PEEP 8 cm H2O
--- NOTE | 2017-08-09 07:46 | Electrocardiograph Report ---
[address] [place], [place] [address] Test Date: 2017-08-08 Pat Name: Farnaz John Department: 103 Room: [facility] Gender: F Bander: ED : 1945 Requested By: Reji Salcedo Order Number: [id number] Reading MD: Xavi العراقي MD Measurements Intervals [place] Rate: 104 P: 145 ME: 150 QRS: 79 QRSD: 71 T: 152 QT: 262 QTc: 322 Interpretive Statements SINUS TACHYCARDIA WITH PVC LOW QRS VOLTAGE IN PRECORDIAL LEADS BASELINE ARTIFACT ANTEROSEPTAL MYOCARDIAL INFARCTION, OF INDETERMINATE AGE Electronically Signed On 08-09-2017 7:44:56 EST by Xavi العراقي MD
--- NOTE | 2017-08-09 07:51 | Pulmonology Progress Note ---
<Cassie Farrell - Last Filed: 08/09/17 10:46> Date of Encounter: 08/09/17 Time of Encounter: 07:51 Assessment and Plan (1) Congestive heart failure Current Visit: Yes Status: Acute 71 yo female diabetic CKD 3, with HTN. presented with dyspnea that started approximately a month ago but acutely worsened yesterday. Q waves seen on EKG on admission. CHF Exacerbation likely 2/2 to NSTEMI. LVEF 20-25%. Impression: Severe segmental left ventricular systolic dysfunction. Left ventricular diastolic dysfunction. No previous EF evaluation available for comparison. Right lower lobe opacity, seen on CXR. O2> 92%. VSS remain stable. Will continue cardiac monitoring Pt tolerated BIPAP this AM. Pt SOB progressing back to baseline, recommend BIPAP overnight S/T 09/05. On Bronchodilators. Mainstay for now is diuretic therapy with Lasix 40 mg IV for volume overload to reduce preloa, with basilar crackles on PE exam this AM. Re-starting patient's home dose of Cozaar for reduction of afterload. Will need Timed BMP to monitor renal function. Urine output monitoring, ho in place. Clear Liquid Diet, with fluid restriction <1 L. Levaquin 750 q48h Qualifiers: Congestive heart failure type: combined Congestive heart failure chronicity : acute on chronic Qualified Code(s): I50.43 - Acute on chronic combined systolic (congestive) and diastolic (congestive) heart failure (2) Respiratory failure with hypoxia Current Visit: Yes Status: Resolved Admitted to ICU 2/2 to respirator failure with hypoxia 08/05/17 pH 7.57/pCO2 32/pO2 79/HCOE 30/97% ABG indicative of respirator alkalosis consistent with acute CHF exacerbation Adequate oxygenation this AM, will continue monitoring Qualifiers: Chronicity: acute on chronic Qualified Code(s): J96.21 - Acute and chronic respiratory failure with hypoxia (3) CKD (chronic kidney disease) stage 3, GFR 30-59 ml/min Current Visit: Yes Status: Chronic Per chart, history of CKD 3 08/09/17 BUN 30, stable, baseline near 26 08/08/17 CR: 1.66, 08/09/17 Cr 1.54, baseline near 1.3 Monitor with timed BMP, diuresis as kidney function tolerates (4) NSTEMI (non-ST elevated myocardial infarction) Current Visit: Yes Status: Acute CHF Exacerbation likely 2/2 to NSTEMI Continue medical management Cardiology on consult, appreciate recs (5) Diabetes mellitus type 2 in obese Current Visit: Yes Status: Acute Continue sliding scale insulin Continue monitor blood sugars and adjust as needed. (6) Hypertension Current Visit: Yes Status: Acute Resuming home medication dose of Cozaar Holding amlodipine for now due to patient's acute status Qualifiers: Hypertension type: essential hypertension Qualified Code(s): I10 - Essential (primary) hypertension (7) DVT prophylaxis Current Visit: Yes Status: Acute Low-dose heparin drip Subjective Principal diagnosis: Hypoxic respiratory failure Interval history: Pt endorse improved SOB. No chest pain. No abdominal pain. Endorses appetite, and would like to eat. Objective PUL Vital signs: Last Vital Signs Temp 99.0 F 08/09/17 07:35 Pulse 98 08/09/17 06:00 Resp 30 08/09/17 06:00 BP 121/87 08/09/17 06:00 Pulse Ox 100 08/09/17 06:00 General appearance: no acute distress, other (conscious, goal-directed thought) Eyes: nonicteric Neck: supple Auscultation: bilateral: diminished breath sounds, wheezes, rales (basilar ) Cardiovascular: regular rate and rhythm Gastrointestinal: normoactive bowel sounds, soft, non-distended Extremities: edema non-focal exam, pupils equal and round mood appropriate, other (smiling, talkative) Results - Laboratory Findings CBC and BMP: 08/09/17 02:45 08/09/17 02:45 ABG ABG pH 7.57 pH Units (7.32-7.45) H 08/09/17 05:57 ABG pCO2 32 mmHg (35-45) L 08/09/17 05:57 ABG pO2 79 mmHg (85-104) L 08/09/17 05:57 ABG O2 Saturation 97 % (95-98) 08/09/17 05:57 PT/INR, D-dimer PT 14.7 Seconds (9.4-12.1) H 08/08/17 11:01 Abnormal lab findings: Abnormal lab results RBC 2.90 M/mcL (3.82-4.97) L 08/09/17 02:45 Hgb 8.3 g/dL (11.5-15.4) L 08/09/17 02:45 Hct 26.1 % (35.3-44.9) L 08/09/17 02:45 RDW 14.7 % (11.5-14.5) H 08/09/17 02:45 Nucleated RBCs/100 WBC 0.2 /100 WBC (0) H 08/08/17 17:15 PT 14.7 Seconds (9.4-12.1) H 08/08/17 11:01 APTT 47.6 Seconds (26.0-36.0) H 08/09/17 05:55 ABG pH 7.57 pH Units (7.32-7.45) H 08/09/17 05:57 ABG pCO2 32 mmHg (35-45) L 08/09/17 05:57 ABG pO2 79 mmHg (85-104) L 08/09/17 05:57 ABG HCO3 30 mEq/L (21-27) H 08/09/17 05:57 ABG Total CO2 31 mEq/L (20-26) H 08/09/17 05:57 ABG Base Excess 7 mEq/L (-2 to 3) H 08/09/17 05:57 Sodium 133 mEq/L (136-145) L 08/09/17 02:45 Chloride 96 mEq/L (98-109) L 08/09/17 02:45 BUN 30 mg/dL (7-20) H 08/09/17 02:45 Creatinine 1.54 mg/dL (0.57-1.11) H 08/09/17 02:45 Est GFR ( Amer) 40 (> 60) L 08/09/17 02:45 Est GFR (Non-Af Amer) 33 (> 60) L 08/09/17 02:45 Glucose 190 mg/dL (70-99) H 08/09/17 02:45 POC Glucose 188 (58-89) H 08/08/17 23:24 Hemoglobin A1c 7.0 % (-5.6) H 08/08/17 17:15 Ionized Calcium 1.14 mmol/L (1.15-1.35) L 08/09/17 02:45 AST 40 Units/L (5-34) H 08/09/17 02:45 Troponin I 6.14 ng/mL (0-0.03) H* 08/09/17 00:20 B-Natriuretic Peptide 1970 pg/mL (0-100) H 08/08/17 11:01 Albumin 2.7 g/dL (3.5-5.0) L 08/09/17 02:45 Globulin 4.2 g/dL (2.4-3.5) H 08/09/17 02:45 Albumin/Globulin Ratio 0.6 (1.1-2.2) L 08/09/17 02:45 Urine Protein 30 mg/dL (Neg-Trace) H 08/08/17 14:23 Urine Bilirubin Small (Negative) H 08/08/17 14:23 Ur Leukocyte Esterase Small (Negative) H 08/08/17 14:23 Urine Microscopic RBC 5-15 per hpf (0-3) H 08/08/17 14:23 Urine Microscopic WBC 5-15 per hpf (0-3) H 08/08/17 14:23 Ur Squamous Epith Cells Many per lpf (None-Few) H 08/08/17 14:23 Ur Culture Indicated? YES (NO) A 08/08/17 14:23 - Diagnostic Findings Additional studies: Chest X-Ray 08/08/17 10:00 IMPRESSION: Cardiomegaly with suspected dependent pulmonary edema in the mid and lower lung donnelly. There may also be a small right-sided pleural effusion at the costophrenic angle. D/ / Sarbjit Salvador MD / Sarbjit Salvador MD Interpreting Provider: Sarbjit Salvador MD Echocardiogram 08/08/17 13:53 Impressions: LVEF 20-25%. Severe segmental left ventricular systolic dysfunction. Left ventricular diastolic dysfunction, NOS No previous EF evaluation available for comparison Left Ventricular Wall Motion: Rest Echo Findings The apical inferior, mid inferior, basal inferior, mid anterior, apical septal, mid inferior septal, basal inferior septal, mid anterior lateral and mid inferior lateral cai were hypokinetic. The apex, apical anterior, apical lateral, mid anterior septal and basal anterior septal cai were akinetic. All other wall segments showed normal motion. Findings: Aorta * Normally sized aortic root. Pericardium * The pericardium appears normal. ECG Findings * Atrial fibrillation. Aortic Valve * No aortic regurgitation. * No aortic stenosis. * Aortic valve not well visualized. Mitral Valve * No mitral regurgitation. * No mitral stenosis. * Mitral valve not well visualized. Tricuspid Valve * Unable to estimate RVSP due to lack of TR jet. * No tricuspid stenosis. * No tricuspid regurgitation. * Tricuspid valve not well visualized. Pulmonic Valve * Pulmonic valve not well visualized. * No pulmonic regurgitation. * No pulmonic stenosis. IVC * The IVC is not well evaluated. Interatrial Septum * Interatrial septum not well evaluated. Right Atrium * Right atrium is not well visualized. Left Atrium * Left atrium is not well visualized. Right Ventricle * Not well visualized Left Ventricle * LVEF 20-25%. * Severe segmental left ventricular systolic dysfunction. * left ventricular diastolic dysfunction, NOS Study Quality * Technically sub-optimal due to body habitus. - Clinical Findings Intake & Output: Intake & Output 08/08/17 08/08/17 08/09/17 15:59 23:59 07:59 Intake Total 871 / 871 460 / 460 Output Total 0 / 0 900 / 900 500 / 500 Balance 0 / 0 -29 / -29 -40 / -40 Weight 133.81 kg Consult Discharge Plan - Plan Referrals: Augustin Eid DO [Primary Care Provider] - <Laith Crain - Last Filed: 08/09/17 21:47> Date of Encounter: 08/09/17 Objective PUL Vital signs: Last Vital Signs Temp 99.1 F 08/09/17 19:46 Pulse 102 08/09/17 19:46 Resp 24 08/09/17 19:46 BP 101/57 08/09/17 19:46 Pulse Ox 94 08/09/17 19:46 Results - Laboratory Findings CBC and BMP: 08/09/17 02:45 08/09/17 02:45 ABG ABG pH 7.57 pH Units (7.32-7.45) H 08/09/17 05:57 ABG pCO2 32 mmHg (35-45) L 08/09/17 05:57 ABG pO2 79 mmHg (85-104) L 08/09/17 05:57 ABG O2 Saturation 97 % (95-98) 08/09/17 05:57 PT/INR, D-dimer PT 14.7 Seconds (9.4-12.1) H 08/08/17 11:01 Abnormal lab findings: Abnormal lab results RBC 2.90 M/mcL (3.82-4.97) L 08/09/17 02:45 Hgb 8.3 g/dL (11.5-15.4) L 08/09/17 02:45 Hct 26.1 % (35.3-44.9) L 08/09/17 02:45 RDW 14.7 % (11.5-14.5) H 08/09/17 02:45 Nucleated RBCs/100 WBC 0.2 /100 WBC (0) H 08/08/17 17:15 PT 14.7 Seconds (9.4-12.1) H 08/08/17 11:01 APTT 86.3 Seconds (26.0-36.0) H 08/09/17 20:00 ABG pH 7.57 pH Units (7.32-7.45) H 08/09/17 05:57 ABG pCO2 32 mmHg (35-45) L 08/09/17 05:57 ABG pO2 79 mmHg (85-104) L 08/09/17 05:57 ABG HCO3 30 mEq/L (21-27) H 08/09/17 05:57 ABG Total CO2 31 mEq/L (20-26) H 08/09/17 05:57 ABG Base Excess 7 mEq/L (-2 to 3) H 08/09/17 05:57 Sodium 133 mEq/L (136-145) L 08/09/17 02:45 Chloride 96 mEq/L (98-109) L 08/09/17 02:45 BUN 30 mg/dL (7-20) H 08/09/17 02:45 Creatinine 1.54 mg/dL (0.57-1.11) H 08/09/17 02:45 Est GFR ( Amer) 40 (> 60) L 08/09/17 02:45 Est GFR (Non-Af Amer) 33 (> 60) L 08/09/17 02:45 Glucose 190 mg/dL (70-99) H 08/09/17 02:45 POC Glucose 198 (58-89) H 08/09/17 11:07 Hemoglobin A1c 7.0 % (-5.6) H 08/08/17 17:15 Ionized Calcium 1.14 mmol/L (1.15-1.35) L 08/09/17 02:45 AST 40 Units/L (5-34) H 08/09/17 02:45 Troponin I 6.14 ng/mL (0-0.03) H* 08/09/17 00:20 B-Natriuretic Peptide 1970 pg/mL (0-100) H 08/08/17 11:01 Albumin 2.7 g/dL (3.5-5.0) L 08/09/17 02:45 Globulin 4.2 g/dL (2.4-3.5) H 08/09/17 02:45 Albumin/Globulin Ratio 0.6 (1.1-2.2) L 08/09/17 02:45 Urine Protein 30 mg/dL (Neg-Trace) H 08/08/17 14:23 Urine Bilirubin Small (Negative) H 08/08/17 14:23 Ur Leukocyte Esterase Small (Negative) H 08/08/17 14:23 Urine Microscopic RBC 5-15 per hpf (0-3) H 08/08/17 14:23 Urine Microscopic WBC 5-15 per hpf (0-3) H 08/08/17 14:23 Ur Squamous Epith Cells Many per lpf (None-Few) H 08/08/17 14:23 Ur Culture Indicated? YES (NO) A 08/08/17 14:23 - Microbiology Findings Microbiology Findings: Microbiology, Last 48 Hours 08/08/17 14:23 Urine Culture - Final Urine,Clean Catch No growth. - Clinical Findings Intake & Output: Intake & Output 08/09/17 08/09/17 08/09/17 07:59 15:59 23:59 Intake Total 460 / 460 389 / 389 607 / 607 Output Total 500 / 500 800 / 800 Balance -40 / -40 -411 / -411 607 / 607 Weight 133.81 kg - Attending Attestation I saw the patient with the resident agree with History and Physical exam findings. Labs and Radiology were reviewed BIPAP S/T 1 09/05 tolerated well overnight CONSULTING APPLICATION ENGINEER: Patient is conscious oriented x3 following commands has some mild respiratory distress way better than yesterday NECK : No JVD appreciated Pulmonary : Patient has hypoxic respiratory failure has moderate respiratory distress secondary to acute exacerbation of heart failure CXR showed more likely pulmonary edema tolerated BIPAP overnight , patient is feeling lot better will give off BIPAP during the day and Prn BIPAP during the night if need BIPAP put the same settings 09/05 Cardiac : CHF exacerbation most likley due to NSTEMI , Heparin for NSTEMI will continue medical management will continue gentle diuresis as hemodynamics and kidney function tolerates .LHC according to cardiology with Severe systolic heart failure patient might need AICD will leave to cardiology team about the timing . Nutrition/GI: Full liquid diet , PPI prophylaxis Renal : Acute on Chronic Kidney injury Heme onc : No acute issues Endo: Diabetes on insulin ID : Patient had increased sputum and production when she started to have CHF symptoms will continue antibitoics Musculo skeletal / skin issues : No acute issues Disposition : Stable for step down Code status: Full Code Family/POA: Daughter .
[2017-08-09] MEDS ORDERED: Aspirin Enteric Coated 81 MG Tablet PO SCH (09:00)
[2017-08-09] MEDS ORDERED: Furosemide 40 MG/4 ML VIAL IVP SCH (09:00)
[2017-08-09] MEDS: Ipratropium/Albuterol Neb 3 ML IH SCH ×3 (11:38→22:14)
[2017-08-09] MEDS: Heparin 25,000 UNIT/500 ML D5W 25,000 UNIT/500 ML MLS IVC SCH ×2 (13:15→18:30)
[2017-08-09] MEDS: cefTRIAXone 1,000 MG in Water for inj. (sterile) 10 ML IVP SCH (14:29)
--- NOTE | 2017-08-09 15:48 | Cardiology Progress Note ---
Date of Encounter: 08/09/17 Time of Encounter: 15:45 Assessment and Plan (1) NSTEMI (non-ST elevated myocardial infarction) Current Visit: Yes Status: Acute Per Cardiology: Initially seen per interventional cardiology and not deemed STEMI. Peak troponin 6.14. CP free. SOB and edema improved with Lasix. Has never had ischemic eval. On asa, statin, ARB, will add BB. On IV Hep. gtt. I had lengthy discussion with patient and family regarding left heart catheterization, currently patient unsure if she would like to proceed. Clinically stable at the moment. Recommend catheterization prior to discharge if she is agreeable to proceed. Continue to monitor respiratory status. Possible LHC Friday unless any acute changes. (2) Congestive heart failure Current Visit: Yes Status: Acute Per Cardiology: BNP 1970. Echo shows EF 20-25%. Clinically improved with IV Lasix. On IV Lasix 40mg daily-- continue with diuresis. Monitor CKD closely. Will decrease ARB ( losartan from 100mg to 50mg PO daily) d/t potential LHC and to allow for BP room to add BB. Will add Toprol XL 12.mg PO daily. Qualifiers: Congestive heart failure type: combined Congestive heart failure chronicity : acute on chronic Qualified Code(s): I50.43 - Acute on chronic combined systolic (congestive) and diastolic (congestive) heart failure (3) CKD (chronic kidney disease) stage 3, GFR 30-59 ml/min Current Visit: Yes Status: Chronic Per Cardiology: History of CKD stage IIIB, continue to monitor closely with diuresis. Consider nephrology consult if clinically warranted. (4) Anemia Current Visit: Yes Status: Acute Per Cardiology: Appears to have hx of anemia, guaiac stool negative. H&H downward trend. On IV Hep gtt-- continue to monitor. Qualifiers: Anemia type: unspecified type Qualified Code(s): D64.9 - Anemia, unspecified Discussion w patient/family: The assessment and plan as outlined above was discussed with the patient and/or family members who expressed understanding and agreement. All questions were answered. Thank you for involving us in the care of your patient. Please call with any questions. Subjective Principal diagnosis: Hypoxic respiratory failure, CHF, NSTEMI Interval history: Patient denies any chest pain. Reports loss of breath and edema have improved during hospital stay. Denies any palpitations. Denies any active bleeding or blood loss. Patient not sure if she would like heart catheterization. Reports has never had catheterization in the past. Objective Vital Signs, Last 4 Hours Temp Pulse Resp BP Pulse Ox 08/09/17 15:00 99.8 F H 97 21 100/56 95 08/09/17 14:00 97 24 105/65 97 08/09/17 13:17 96 28 123/72 94 08/09/17 12:30 93 08/09/17 12:00 98 24 112/82 93 General: Conversant HEENT: Atraumatic, Normocephaly Cardiac: Reg Rate and Rhythm, Normal S1 and S2, No Murmur Lungs: Normal Breath Sounds, No Wheeze, Rales, Rhonchi, Other (Mild conversational dyspnea noted) Neuro: Alert and responsive, No focal deficits noted Abdomen: Soft, Non-Tender, Other (Obese) Skin: No rashes noted on visualized skin Extremities: Other (Trace nonpitting bilateral lower extremity edema) Results 08/09/17 02:45 08/09/17 02:45 Lab Results Laboratory Tests 02/15/15 04/28/17 08/08/17 08:30 11:20 11:01 Hgb 11.3 L 9.0 L Hct 34.4 L 28.4 L INR Creatinine 1.39 H Est GFR (Non-Af Amer) Troponin I B-Natriuretic Peptide Stool Occult Blood 08/08/17 08/08/17 08/08/17 11:01 11:01 11:01 Hgb Hct INR Creatinine 1.66 H Est GFR (Non-Af Amer) Troponin I 4.15 H* B-Natriuretic Peptide 1970 H Stool Occult Blood 08/08/17 08/08/17 08/08/17 11:01 12:02 12:34 Hgb Hct INR 1.4 Creatinine Est GFR (Non-Af Amer) Troponin I 4.39 H* B-Natriuretic Peptide Stool Occult Blood Negative 08/08/17 08/08/17 08/09/17 17:15 17:15 00:20 Hgb Hct 24.8 L INR Creatinine Est GFR (Non-Af Amer) Troponin I 5.45 H* 6.14 H* B-Natriuretic Peptide Stool Occult Blood 08/09/17 08/09/17 02:45 02:45 Hgb 8.3 L Hct 26.1 L INR Creatinine 1.54 H Est GFR (Non-Af Amer) 33 L Troponin I B-Natriuretic Peptide Stool Occult Blood ITS Impressions Chest X-Ray 08/08/17 10:00 IMPRESSION: Cardiomegaly with suspected dependent pulmonary edema in the mid and lower lung donnelly. There may also be a small right-sided pleural effusion at the costophrenic angle. D/ / Sarbjit Salvador MD / Sarbjit Salvador MD Interpreting Provider: Sarbjit Salvador MD Echocardiogram 08/08/17 13:53 Impressions: LVEF 20-25%. Severe segmental left ventricular systolic dysfunction. Left ventricular diastolic dysfunction, NOS No previous EF evaluation available for comparison Left Ventricular Wall Motion: Rest Echo Findings The apical inferior, mid inferior, basal inferior, mid anterior, apical septal, mid inferior septal, basal inferior septal, mid anterior lateral and mid inferior lateral cai were hypokinetic. The apex, apical anterior, apical lateral, mid anterior septal and basal anterior septal cai were akinetic. All other wall segments showed normal motion. Findings: Aorta * Normally sized aortic root. Pericardium * The pericardium appears normal. ECG Findings * Atrial fibrillation. Aortic Valve * No aortic regurgitation. * No aortic stenosis. * Aortic valve not well visualized. Mitral Valve * No mitral regurgitation. * No mitral stenosis. * Mitral valve not well visualized. Tricuspid Valve * Unable to estimate RVSP due to lack of TR jet. * No tricuspid stenosis. * No tricuspid regurgitation. * Tricuspid valve not well visualized. Pulmonic Valve * Pulmonic valve not well visualized. * No pulmonic regurgitation. * No pulmonic stenosis. IVC * The IVC is not well evaluated. Interatrial Septum * Interatrial septum not well evaluated. Right Atrium * Right atrium is not well visualized. Left Atrium * Left atrium is not well visualized. Right Ventricle * Not well visualized Left Ventricle * LVEF 20-25%. * Severe segmental left ventricular systolic dysfunction. * left ventricular diastolic dysfunction, NOS Study Quality * Technically sub-optimal due to body habitus. Intake & Output 08/06/17 08/07/17 08/08/17 08/09/17 23:59 23:59 23:59 23:59 Intake Total 871 / 871 849 / 849 Output Total 900 / 900 1300 / 1300 Balance -29 / -29 -451 / -451 Weight 133.81 kg 133.81 kg Active Medications Albuterol/Ipratropium (Duoneb) 3 ml IH [id number] PRN PRN Reason: Shortness Of Breath/Wheezing Stop: 02/07/18 14:19 Albuterol/Ipratropium (Duoneb) 3 ml IH [id number] QUIN Stop: 02/08/18 10:01 Last Admin: 08/09/17 11:38 Dose: 3 ml Aspirin (Aspirin Ec) 81 mg PO DAILY QUIN Stop: 02/08/18 09:01 Last Admin: 08/09/17 08:55 Dose: 81 mg Atorvastatin Calcium (Lipitor) 40 mg PO HS [facility] Stop: 02/07/18 21:01 Last Admin: 08/08/17 23:38 Dose: 40 mg Dextrose/Water (Dextrose 50% (Syg)) 25 ml IVP AD PRN PRN Reason: Hypoglycemia Stop: 02/07/18 14:25 Furosemide (Lasix) 40 mg IVP DAILY [facility] Stop: 02/08/18 09:01 Last Admin: 08/09/17 09:10 Dose: 40 mg Gabapentin (Neurontin) 300 mg PO HS [facility] Stop: 02/07/18 21:01 Last Admin: 08/08/17 23:38 Dose: 300 mg Glucagon (Glucagen) 1 mg IM ONCE PRN PRN Reason: Hypoglycemia Stop: 02/07/18 14:25 Glucose (Gluctose) 15 gm PO ONCE PRN PRN Reason: Hypoglycemia Stop: 02/07/18 14:25 Glucose (Gluctose) 30 gm PO ONCE PRN PRN Reason: Hypoglycemia Stop: 02/07/18 14:25 Heparin Sodium (Porcine) (Heparin) 4,000 unit IVP Q6HR PRN PRN Reason: SEE COMMENTS Stop: 02/07/18 14:10 Heparin Sodium (Porcine) (Heparin) 2,000 unit IVP Q6H PRN PRN Reason: SEE COMMENTS Stop: 02/07/18 14:10 Last Admin: 08/09/17 14:35 Dose: 2,000 unit Ceftriaxone Sodium 1,000 mg/ (Sterile Water) 10 mls @ 300 mls/hr IVP Q24H QUIN Stop: 02/07/18 15:01 Last Admin: 08/09/17 14:29 Dose: 100 mls/hr Heparin Sodium/Dextrose (Heparin 25,000 Unit/500 Ml D5w) 25,000 unit in 500 mls @ 20 mls/hr IVC .Q24H [facility] PRN Reason: Protocol Stop: 02/07/18 14:16 Last Titration: 08/09/17 13:51 Dose: 36 mls/hr Levofloxacin/Dextrose (Levaquin Premix 750mg/150 Ml) 750 mg in 150 mls @ 100 mls/hr IVPB Q48H [facility] PRN Reason: Protocol Stop: 02/07/18 15:01 Last Infusion: 08/08/17 18:00 Dose: Infused Dextrose (Dextrose 5%) 1,000 mls @ 100 mls/hr IVC .Q10H PRN PRN Reason: HYPOGLYCEMIA Stop: 02/07/18 14:25 Calcium Gluconate 1,000 mg/ (Sodium Chloride) 60 mls @ 111 mls/hr IVPB Q6HR PRN PRN Reason: Hypocalcemia Stop: 02/07/18 14:27 Last Infusion: 08/08/17 19:46 Dose: Infused Magnesium Sulfate (Magnesium Sulfate Premix 2gm/50ml) 2 gm in 50 mls @ 25 mls/ hr IVPB Q6H PRN PRN Reason: Hypomagnesemia Stop: 02/07/18 14:27 Last Infusion: 08/08/17 20:41 Dose: Infused Potassium Chloride (Potassium Chloride 10 Meq/100ml) 10 meq in 100 mls @ 100 mls/hr IVPB Q1H PRN PRN Reason: Potassium less than 4 Stop: 02/07/18 14:27 Last Infusion: 08/09/17 09:06 Dose: Infused Potassium Phosphate 44 meq/ (Sodium Chloride) 260 mls @ 40 mls/hr IVPB Q10H PRN PRN Reason: Phosphate less than 3 Stop: 02/07/18 14:27 Insulin Human Lispro (Humalog) 0 units SQ Q6HR [facility] PRN Reason: Protocol Stop: 02/07/18 18:01 Last Admin: 08/09/17 12:57 Dose: 6 units Lorazepam (Ativan) 1 mg IVP Q6HR PRN PRN Reason: Anxiety Stop: 02/07/18 14:17 Last Admin: 08/09/17 02:33 Dose: 1 mg Losartan Potassium (Cozaar) 100 mg PO DAILY QUIN PRN Reason: Protocol Stop: 02/08/18 09:01 Last Admin: 08/09/17 08:55 Dose: 100 mg Naloxone HCl (Narcan) 0.4 mg IVP Q2MIN PRN PRN Reason: Opioid Reversal Stop: 02/07/18 14:10 Oxycodone HCl (Roxicodone) 5 mg PO Q6HR PRN PRN Reason: Pain Stop: 02/07/18 14:20 Sertraline HCl (Zoloft) 50 mg PO DAILY QUIN Stop: 02/08/18 09:01 Last Admin: 08/09/17 08:55 Dose: 50 mg - Imaging and Cardiology Echo: report reviewed - EKG Interpretation EKG results cardiology: other (Tele shows SR-ST, currently 100's, avg HR past 12 hrs 97) Consult Discharge Plan - Plan Referrals: Augustin Eid DO [Primary Care Provider] -
[2017-08-09] MEDS ORDERED: Metoprolol XL (24 HR) Succ 25 MG TAB.ER.24H PO SCH (16:00)
[2017-08-09] MEDS ORDERED: Naloxone 0.4 MG/ML INJ IVP PRN (16:32)
[2017-08-09] MEDS ORDERED: D5% in Water 1,000 ML IVC PRN (16:32)
[2017-08-09] MEDS ORDERED: Ipratropium/Albuterol Neb 3 ML IH PRN (16:32)
[2017-08-09] MEDS ORDERED: Dextrose Gel 15 GM PO PRN ×2 (16:32)
[2017-08-09] MEDS ORDERED: Potassium Phosphate 44 MEQ in 0.9 % Sodium Chloride 250 ML IVPB PRN (16:32)
[2017-08-09] MEDS ORDERED: *HR* Dextrose 50 % in Water (Syg) 50 ML SYRINGE IVP PRN (16:32)
[2017-08-09] MEDS ORDERED: *HR* Heparin 5,000 UNIT/ML VIAL IVP PRN ×2 (16:32)
[2017-08-09] MEDS: *HR* LORazepam 2 MG/ML VIAL IVP PRN (20:58)
[2017-08-09] MEDS: Gabapentin 300 MG CAPSULE PO SCH (20:59)
[2017-08-10] MEDS: Insulin LISPRO 300 UNITS/3 ML VIAL SQ SCH ×5 (00:07→21:35)
[2017-08-10] MEDS: Ipratropium/Albuterol Neb 3 ML IH SCH ×4 (03:52→21:44)
[2017-08-10] MEDS: Heparin 25,000 UNIT/500 ML D5W 25,000 UNIT/500 ML MLS IVC SCH (03:58)
[2017-08-10 04:12] LABS: Basophils # 0.1 K/mcL (0.0-0.2); Basophils % 0.5 %; Eosinophils # 0.1 K/mcL (0.0-0.6); Eosinophils % 1.3 %; Hematocrit 27.3 % (35.3-44.9); Hemoglobin 8.4 g/dL (11.5-15.4); Immature Granulocytes % 1.2 % (0-4); Lymphocytes # 1.6 K/mcL (0.6-4.6); Lymphocytes % 14.4 %; Mean Corpuscular HGB Conc 30.8 g/dL (31.6-35.5); Mean Corpuscular Hemoglobin 27.7 pg (28.0-33.3); Mean Corpuscular Volume 90.1 fL (83.0-100.0); Mean Platelet Volume 10.4 fL (9.4-12.4); Monocytes # 1.1 K/mcL (0.0-1.3); Monocytes % 9.9 %; Neutrophils # 7.8 K/mcL (1.6-8.9); Nucleated Red Blood Cells 0.2 /100 WBC (0); Platelet Count 287 K/mcL (140-400); Red Blood Count 3.03 M/mcL (3.82-4.97); Red Cell Distribution Width 15.1 % (11.5-14.5); Segmented Neutrophils % 72.7 %
[2017-08-10 04:31] LABS: Albumin 2.7 g/dL (3.5-5.0); Albumin/Globulin Ratio 0.7 (1.1-2.2); Bilirubin,Direct 0.3 mg/dL (0.0-0.5); Bilirubin,Indirect 0.2 mg/dL (0.0-1.2); Bilirubin,Total 0.5 mg/dL (0.2-1.2); Calcium 8.6 mg/dL (8.6-10.8); Magnesium 1.8 mg/dL (1.6-2.6); Potassium 3.5 mEq/L (3.5-4.5); Total Protein 6.7 g/dL (6.0-8.3)
--- NOTE | 2017-08-10 06:02 | Cardiology Progress Note ---
Date of Encounter: 08/10/17 Time of Encounter: 06:00 Assessment and Plan (1) NSTEMI (non-ST elevated myocardial infarction) Current Visit: Yes Status: Acute Per Cardiology: Initially seen per interventional cardiology and not deemed STEMI. Peak troponin 6.14. CP free. SOB and edema improved with Lasix. Has never had ischemic eval. On asa, statin, ARB, BB. SBP 100's-120's, HR 90's - 100's SR-ST with PVCs, will decrease ARB and increase BB. On IV Hep. gtt-- will dc now. Cardiac Rehab C/s placed. I again had a lengthy discussion with patient with recommendations for heart catheterization, however patient declines at this time. She reports not interested in completing during this hospital stay. Patient agreeable to follow-up with cardiology as outpatient and reevaluate at that time. Will discuss with Dr. Echeverria. (2) Congestive heart failure Current Visit: Yes Status: Acute Per Cardiology: BNP 1969. Echo shows EF 20-25%. Clinically improved with IV Lasix 40mg daily-- continue with diuresis. Net I&O -340ml, weights down from 133kg to 95kg??? ( suspect inaccurate). Kidney fxn stable-- monitor CKD closely with ARB, lasix. Qualifiers: Congestive heart failure type: combined Congestive heart failure chronicity : acute on chronic Qualified Code(s): I50.43 - Acute on chronic combined systolic (congestive) and diastolic (congestive) heart failure (3) CKD (chronic kidney disease) stage 3, GFR 30-59 ml/min Current Visit: Yes Status: Chronic Per Cardiology: History of CKD stage IIIB, continue to monitor closely with diuresis. Consider nephrology consult if clinically warranted. (4) Anemia Current Visit: Yes Status: Acute Per Cardiology: Appears to have hx of anemia, guaiac stool negative. H&H downward trend on IV Hep gtt., but stable. Will DC IV Hep gtt now. On asa. Qualifiers: Anemia type: unspecified type Qualified Code(s): D64.9 - Anemia, unspecified Discussion w patient/family: The assessment and plan as outlined above was discussed with the patient and/or family members who expressed understanding and agreement. All questions were answered. Thank you for involving us in the care of your patient. Please call with any questions. Subjective Principal diagnosis: Hypoxic respiratory failure, CHF, NSTEMI Interval history: Patient seen this morning and reports short of breath at rest unchanged from yesterday. She does report overall improved during hospital stay. Additionally, reports overall edema to lower extremities improved. She denies any chest pain or palpitations. Denies any active bleeding or blood loss. Objective Vital Signs, Last 4 Hours Temp Pulse Resp BP Pulse Ox 08/10/17 03:53 34 96 08/10/17 03:39 99.9 F H 95 33 129/78 92 General: Conversant HEENT: Atraumatic, Normocephaly Cardiac: Reg Rate and Rhythm, Normal S1 and S2, No Murmur Lungs: Other (Mild short of breath at rest and conversational dyspnea noted, diminished breath sounds throughout) Neuro: Alert and responsive, No focal deficits noted Abdomen: Soft, Non-Tender, Other (Obese) Skin: No rashes noted on visualized skin Extremities: Other (Trace nonpitting bilateral lower extremity edema) Results 08/10/17 03:50 08/10/17 03:50 Lab Results Laboratory Tests 08/10/17 08/10/17 03:50 03:50 Hgb 8.4 L Hct 27.3 L Creatinine 1.50 H Est GFR (Non-Af Amer) 34 L AST 46 H ALT 44 Impressions Echocardiogram 08/08/17 13:53 Impressions: LVEF 20-25%. Severe segmental left ventricular systolic dysfunction. Left ventricular diastolic dysfunction, NOS No previous EF evaluation available for comparison Left Ventricular Wall Motion: Rest Echo Findings The apical inferior, mid inferior, basal inferior, mid anterior, apical septal, mid inferior septal, basal inferior septal, mid anterior lateral and mid inferior lateral cai were hypokinetic. The apex, apical anterior, apical lateral, mid anterior septal and basal anterior septal cai were akinetic. All other wall segments showed normal motion. Findings: Aorta * Normally sized aortic root. Pericardium * The pericardium appears normal. ECG Findings * Atrial fibrillation. Aortic Valve * No aortic regurgitation. * No aortic stenosis. * Aortic valve not well visualized. Mitral Valve * No mitral regurgitation. * No mitral stenosis. * Mitral valve not well visualized. Tricuspid Valve * Unable to estimate RVSP due to lack of TR jet. * No tricuspid stenosis. * No tricuspid regurgitation. * Tricuspid valve not well visualized. Pulmonic Valve * Pulmonic valve not well visualized. * No pulmonic regurgitation. * No pulmonic stenosis. IVC * The IVC is not well evaluated. Interatrial Septum * Interatrial septum not well evaluated. Right Atrium * Right atrium is not well visualized. Left Atrium * Left atrium is not well visualized. Right Ventricle * Not well visualized Left Ventricle * LVEF 20-25%. * Severe segmental left ventricular systolic dysfunction. * left ventricular diastolic dysfunction, NOS Study Quality * Technically sub-optimal due to body habitus. Intake & Output 08/07/17 08/08/17 08/09/17 08/10/17 23:59 23:59 23:59 23:59 Intake Total 871 / 871 1456 / 1456 133 / 133 Output Total 900 / 900 1300 / 1300 Balance -29 / -29 156 / 156 133 / 133 Weight 133.81 kg 133.81 kg 95.5 kg Active Medications Albuterol/Ipratropium (Duoneb) 3 ml IH [id number] PRN PRN Reason: Shortness Of Breath/Wheezing Stop: 02/07/18 14:19 Albuterol/Ipratropium (Duoneb) 3 ml IH [id number] [facility] Stop: 02/08/18 10:01 Last Admin: 08/10/17 03:52 Dose: 3 ml Aspirin (Aspirin Ec) 81 mg PO DAILY QUIN Stop: 02/08/18 09:01 Atorvastatin Calcium (Lipitor) 40 mg PO HS [facility] Stop: 02/07/18 21:01 Last Admin: 08/09/17 20:59 Dose: 40 mg Dextrose/Water (Dextrose 50% (Syg)) 25 ml IVP AD PRN PRN Reason: Hypoglycemia Stop: 02/07/18 14:25 Furosemide (Lasix) 40 mg IVP DAILY QUIN Stop: 02/08/18 09:01 Gabapentin (Neurontin) 300 mg PO HS QUIN Stop: 02/07/18 21:01 Last Admin: 08/09/17 20:59 Dose: 300 mg Glucagon (Glucagen) 1 mg IM ONCE PRN PRN Reason: Hypoglycemia Stop: 02/07/18 14:25 Glucose (Gluctose) 15 gm PO ONCE PRN PRN Reason: Hypoglycemia Stop: 02/07/18 14:25 Glucose (Gluctose) 30 gm PO ONCE PRN PRN Reason: Hypoglycemia Stop: 02/07/18 14:25 Heparin Sodium (Porcine) (Heparin) 4,000 unit IVP Q6HR PRN PRN Reason: SEE COMMENTS Stop: 02/07/18 14:10 Heparin Sodium (Porcine) (Heparin) 2,000 unit IVP Q6H PRN PRN Reason: SEE COMMENTS Stop: 02/07/18 14:10 Calcium Gluconate 1,000 mg/ (Sodium Chloride) 60 mls @ 111 mls/hr IVPB Q6HR PRN PRN Reason: Hypocalcemia Stop: 02/07/18 14:27 Ceftriaxone Sodium 1,000 mg/ (Sterile Water) 10 mls @ 300 mls/hr IVP Q24H QUIN Stop: 02/07/18 15:01 Dextrose (Dextrose 5%) 1,000 mls @ 100 mls/hr IVC .Q10H PRN PRN Reason: HYPOGLYCEMIA Stop: 02/07/18 14:25 Heparin Sodium/Dextrose (Heparin 25,000 Unit/500 Ml D5w) 25,000 unit in 500 mls @ 20 mls/hr IVC .Q24H QUIN PRN Reason: Protocol Stop: 02/07/18 14:16 Last Admin: 08/10/17 03:58 Dose: 36 mls/hr, 36 mls/hr Levofloxacin/Dextrose (Levaquin Premix 750mg/150 Ml) 750 mg in 150 mls @ 100 mls/hr IVPB Q48H QUIN PRN Reason: Protocol Stop: 02/07/18 15:01 Magnesium Sulfate (Magnesium Sulfate Premix 2gm/50ml) 2 gm in 50 mls @ 25 mls/ hr IVPB Q6H PRN PRN Reason: Hypomagnesemia Stop: 02/07/18 14:27 Potassium Chloride (Potassium Chloride 10 Meq/100ml) 10 meq in 100 mls @ 100 mls/hr IVPB Q1H PRN PRN Reason: Potassium less than 4 Stop: 02/07/18 14:27 Potassium Phosphate 44 meq/ (Sodium Chloride) 260 mls @ 40 mls/hr IVPB Q10H PRN PRN Reason: Phosphate less than 3 Stop: 02/07/18 14:27 Insulin Human Lispro (Humalog) 0 units SQ Q6HR QUIN PRN Reason: Protocol Stop: 02/07/18 18:01 Last Admin: 08/10/17 00:07 Dose: 6 units Lorazepam (Ativan) 1 mg IVP Q6HR PRN PRN Reason: Anxiety Stop: 02/07/18 14:17 Last Admin: 08/09/17 20:58 Dose: 1 mg Losartan Potassium (Cozaar) 50 mg PO DAILY QUIN PRN Reason: Protocol Stop: 02/09/18 09:01 Metoprolol Succinate (Toprol Xl) 12.5 mg PO DAILY [facility] Stop: 02/08/18 16:01 Naloxone HCl (Narcan) 0.4 mg IVP Q2MIN PRN PRN Reason: Opioid Reversal Stop: 02/07/18 14:10 Sertraline HCl (Zoloft) 50 mg PO DAILY [facility] Stop: 02/08/18 09:01 - Imaging and Cardiology Echo: report reviewed - EKG Interpretation EKG results cardiology: other (Sinus rhythm with occasional PVCs on telemetry with heart rate in the 90s to 100s, no significant events noted) Consult Discharge Plan - Plan Referrals: Augustin Eid DO [Primary Care Provider] -
[2017-08-10] MEDS: *HR* LORazepam 2 MG/ML VIAL IVP PRN (07:31)
[2017-08-10] MEDS ORDERED: Dextrose Gel 15 GM PO PRN (08:27)
[2017-08-10] MEDS ORDERED: *HR* Dextrose 50 % in Water (Syg) 50 ML SYRINGE IVP PRN (08:27)
[2017-08-10] MEDS ORDERED: D5% in Water 1,000 ML IVC PRN (08:27)
[2017-08-10] MEDS: Metoprolol XL (24 HR) Succ 25 MG TAB.ER.24H PO SCH (08:39)
[2017-08-10] MEDS: Aspirin Enteric Coated 81 MG Tablet PO SCH (08:39)
[2017-08-10] MEDS ORDERED: Metoprolol XL (24 HR) Succ 25 MG TAB.ER.24H PO SCH (09:00)
[2017-08-10] MEDS ORDERED: Furosemide 40 MG/4 ML VIAL IVP SCH (09:00)
--- NOTE | 2017-08-10 09:41 | Internal Med History&Physical ---
<Elmer Ruby - Last Filed: 08/10/17 12:02> Date of Encounter: 08/10/17 Time of Encounter: 09:36 Assessment and Plan (1) Acute systolic (congestive) heart failure Current visit: Yes Status: Acute Echo this visit demonstrated EF of 20-25% Increase her Lasix from 40 IV daily to BID and strict I/O's Continue current Cozaar and Toprol dose as her BP has been stable Fluid restrict with 1 L daily Will try to wean her off BiPAP as tolerated Needs PT/OT and oxygen qualification prior to DC (2) NSTEMI (non-ST elevated myocardial infarction) Current visit: Yes Status: Acute Troponin elevated above 4 and EKG showed q waves Cardiology recommended LHC but patient refused procedure and will medically manage Continue ASA, Lipitor, BB, ARB (3) Respiratory failure with hypoxia Current visit: Yes Status: Acute Likely secondary to CHF exacerbation in setting of PNA/OHS Continue supportive measures with BiPAP/NC, breathing treatments as above Qualifiers: Chronicity: acute on chronic Qualified Code(s): J96.21 - Acute and chronic respiratory failure with hypoxia (4) Community acquired pneumonia Current visit: Yes Status: Chronic CXR demonstrated bilateral opacities possible for PNA Continue on Levaquin and Rocephin Blood cultures have remained negative for 48 hours Qualifiers: Laterality: unspecified laterality Qualified Code(s): J18.9 - Pneumonia, unspecified organism (5) CKD (chronic kidney disease) stage 3, GFR 30-59 ml/min Current visit: Yes Status: Chronic Cr stable at 1.50 this morning which is near her baseline of about 1.4 Will monitor Cr and electrolytes closely while on Lasix (6) Diabetes mellitus type 2 in obese Current visit: Yes Status: Chronic Her POC sugars have been below 200 Continue low dose SSI ACHS accuchecks A1c checked this visit was 7.0 (7) Hypertension Current visit: Yes Status: Chronic Blood pressures stable this morning Continue Cozaar and Toprol Qualifiers: Hypertension type: essential hypertension Qualified Code(s): I10 - Essential (primary) hypertension (8) DVT prophylaxis Current visit: Yes Status: Acute Heparin 5000 units BID Internal Medicine - H&P: HPI Chief complaint: shortness of breath Admitted From: Home Plans for Post Hospital Care: Home (with home health) History of present illness: Ms. John is a 71 year old female who presented to the ED on August 08 with shortness of breath. She required BiPAP and was admitted to the ICU for concerns of respiratory failure. According to the patient, she has been having shortness of breath for roughly a month and had been short of breath even at rest. She does live alone and denies any oxygen or breathing treatment requirements at home. Chest x-ray demonstrated bilateral opacities concerning for pneumonia and she was started on Rocephin and Levaquin. Patient denies any history of previous pneumonia and has no previous episodes of aspiration. Patient's troponins were elevated above 4 and EKG showed Q waves suggesting possible old infarct. Cardiology was consulted and recommended cardiac catheterization, however patient declined the procedure. This morning, patient is not complaining of any chest pain and has no shortness of breath while at rest. She is sitting upright eating breakfast without any issues and is on 3 L nasal cannula. She denies any nausea, vomiting, fevers, chills, diarrhea. Past Med Surg Social Fam HX - Past Medical History Medical history: arthritis, cancer, diabetes, hypertension Psychiatric history: anxiety - Past Surgical History Surgical History: appendectomy, cholecystectomy, hysterectomy - Social History Smoking Status: Former smoker Alcohol use: none Drug use: none - Family History Son Living Status: Age at : 34 Hx Family Cancer: Yes (lymphoma) Internal Medicine - H&P: Meds Amlodipine Besylate 10 mg PO DAILY 08/08/17 [History] Amoxicillin/Clavulanate [Augmentin] 875 mg PO BID 08/08/17 [History] Aspirin [Lo-Dose Aspirin EC] 81 mg PO DAILY 08/08/17 [History] Cyclobenzaprine [Flexeril] 10 mg PO TID 08/08/17 [History] Gabapentin [Neurontin] 300 mg PO HS 08/08/17 [History] Losartan Potassium [Cozaar] 100 mg PO DAILY 08/08/17 [History] Pioglitazone HCl [Actos] 30 mg PO DAILY 08/08/17 [History] Polyethylene Glycol 3350 [MiraLAX Powder Bulk 17.9 Oz] 1 scoop PO DAILY [History] Potassium Chloride [Klor-Con 10] 10 meq PO DAILY 08/08/17 [History] Sertraline [Zoloft] 50 mg PO DAILY 08/08/17 [History] Simvastatin [Zocor] 40 mg PO HS 08/08/17 [History] Tramadol HCl [Ultram] 50 mg PO QID PRN 08/08/17 [History] hydroCHLOROthiazide [Hydrochlorothiazide] 25 mg PO DAILY 08/08/17 [History] 3 Allergy/AdvReac Type Severity Reaction Status Date / Time codeine Allergy Rash Verified 08/08/17 09:56 All Systems PM: A 10-system review of systems was performed and is negative for pertinent findings except as documented above in the HPI. - Constitutional Constitutional: falls, no chills, no fever(s), no night sweats - EENT Eyes: no change in vision, no discharge, no pain, no photophobia Ears: no ear discharge, no ear pain, no tinnitus Nose, mouth and throat: no dysphagia, no nasal discharge, no neck pain, no sore throat - Cardiovascular Cardiovascular ROS IM: dyspnea, dyspnea on exertion, no chest pain, no diaphoresis, no lightheadedness, no palpitations, no syncope - Respiratory Respiratory: cough (dry), no dyspnea, no wheezing, no excessive phlegm production, no change in phlegm color, no pain with cough - Gastrointestinal Gastrointestinal: no abdominal pain, no diarrhea, no hematemesis, no hematochezia, no melena, no nausea, no vomiting - Genitourinary Genitourinary: no change in urinary stream, no dysuria, no flank pain, no hematuria - Musculoskeletal Musculoskeletal ROS IM: no numbness, no tingling - Integumentary Integumentary IM: no rash, no unusual bruising - Neurological Neurological ROS: no confusion, no convulsions, no focal weakness, no numbness, no tingling, no tremor(s) - Hematologic/Lymphatic Hematologic/Lymphatic: no easy bruising - Constitutional Vitals: Temp Pulse Resp BP Pulse Ox 99.9 F H 103 24 103/53 94 08/10/17 03:39 08/10/17 07:00 08/10/17 07:00 08/10/17 07:00 08/10/17 07:00 General appearance: Present: cooperative, morbidly obese, pleasant, no acute distress, answers questions appropriately - Head Head exam: Present: atraumatic, normocephalic - Eye Eye exam: Present: EOMI, PERRL, conjuntiva pink, sclera anicteric - Neck Neck exam general surgery: Present: supple, trachea midline. Absent: lymphadenopathy - Respiratory Respiratory exam: Present: decreased breath sounds. Absent: accessory muscle use, rales, rhonchi, wheezes - Cardiovascular Cardiovascular exam: Present: RRR, +S1, +S2. Absent: diastolic murmur, gallop, rubs, systolic murmur - GI/Abdominal GI/Abdominal exam: Present: normal bowel sounds, soft, no peritoneal signs. Absent: distended, tenderness - Extremities Exam Extremities exam: Present: pedal edema, warm, radial pulses palpable and symmetrical. Absent: calf tenderness, cyanotic - Neurological Exam Neurological exam: Present: alert, no focal deficits. Absent: facial droop, speech deficit - Skin Skin exam: Present: dry, intact Internal Med - H&P Results - Labs CBC & Chem 7: 08/10/17 03:50 08/10/17 03:50 Labs: Short CBC 08/10/17 Range/Units 03:50 WBC 10.7 (4.3-11.1) K/mcL Hgb 8.4 L (11.5-15.4) g/dL Hct 27.3 L (35.3-44.9) % Plt Count 287 (140-400) K/mcL Neutrophils # 7.8 (1.6-8.9) K/mcL BMP 08/10/17 03:50 Sodium 135 L Potassium 3.5 Chloride 95 L Carbon Dioxide 29 BUN 27 H Creatinine 1.50 H Glucose 159 H Calcium 8.6 Liver Function 08/10/17 Range/Units 03:50 Total Bilirubin 0.5 (0.2-1.2) mg/dL Direct Bilirubin 0.3 (0.0-0.5) mg/dL AST 46 H (5-34) Units/L ALT 44 (0-55) Units/L Alkaline Phosphatase 89 (38-126) Units/L Albumin 2.7 L (3.5-5.0) g/dL - ABG Interpretation ABG results: 08/08/17 08/09/17 13:52 05:57 ABG pH 7.51 H 7.57 H ABG pCO2 30 L 32 L ABG pO2 87 79 L ABG HCO3 24 30 H ABG Total CO2 25 31 H ABG O2 Saturation 98 97 ABG Base Excess 1 7 H - Impressions ITS Impressions Echocardiogram 08/08/17 13:53 Impressions: LVEF 20-25%. Severe segmental left ventricular systolic dysfunction. Left ventricular diastolic dysfunction, NOS No previous EF evaluation available for comparison Left Ventricular Wall Motion: Rest Echo Findings The apical inferior, mid inferior, basal inferior, mid anterior, apical septal, mid inferior septal, basal inferior septal, mid anterior lateral and mid inferior lateral cai were hypokinetic. The apex, apical anterior, apical lateral, mid anterior septal and basal anterior septal cai were akinetic. All other wall segments showed normal motion. Findings: Aorta * Normally sized aortic root. Pericardium * The pericardium appears normal. ECG Findings * Atrial fibrillation. Aortic Valve * No aortic regurgitation. * No aortic stenosis. * Aortic valve not well visualized. Mitral Valve * No mitral regurgitation. * No mitral stenosis. * Mitral valve not well visualized. Tricuspid Valve * Unable to estimate RVSP due to lack of TR jet. * No tricuspid stenosis. * No tricuspid regurgitation. * Tricuspid valve not well visualized. Pulmonic Valve * Pulmonic valve not well visualized. * No pulmonic regurgitation. * No pulmonic stenosis. IVC * The IVC is not well evaluated. Interatrial Septum * Interatrial septum not well evaluated. Right Atrium * Right atrium is not well visualized. Left Atrium * Left atrium is not well visualized. Right Ventricle * Not well visualized Left Ventricle * LVEF 20-25%. * Severe segmental left ventricular systolic dysfunction. * left ventricular diastolic dysfunction, NOS Study Quality * Technically sub-optimal due to body habitus. - VTE Documentation of Mechanical Device: Intermittent pneumatic compression device <Flip Goff - Last Filed: 08/10/17 14:40> Date of Encounter: 08/10/17 Internal Medicine - H&P: HPI History of present illness: Ms. John is a 71 year old female All Systems PM: A 10-system review of systems was performed and is negative for pertinent findings except as documented above in the HPI. - Constitutional Vitals: Temp Pulse Resp BP Pulse Ox 98.3 F 94 22 103/53 97 08/10/17 11:00 08/10/17 11:00 08/10/17 11:00 08/10/17 07:00 08/10/17 11:00 Internal Med - H&P Results - Labs CBC & Chem 7: 08/10/17 03:50 08/10/17 03:50 Labs: Short CBC 08/10/17 Range/Units 03:50 WBC 10.7 (4.3-11.1) K/mcL Hgb 8.4 L (11.5-15.4) g/dL Hct 27.3 L (35.3-44.9) % Plt Count 287 (140-400) K/mcL Neutrophils # 7.8 (1.6-8.9) K/mcL BMP 08/10/17 03:50 Sodium 135 L Potassium 3.5 Chloride 95 L Carbon Dioxide 29 BUN 27 H Creatinine 1.50 H Glucose 159 H Calcium 8.6 Liver Function 08/10/17 Range/Units 03:50 Total Bilirubin 0.5 (0.2-1.2) mg/dL Direct Bilirubin 0.3 (0.0-0.5) mg/dL AST 46 H (5-34) Units/L ALT 44 (0-55) Units/L Alkaline Phosphatase 89 (38-126) Units/L Albumin 2.7 L (3.5-5.0) g/dL - ABG Interpretation ABG results: 08/08/17 08/09/17 13:52 05:57 ABG pH 7.51 H 7.57 H ABG pCO2 30 L 32 L ABG pO2 87 79 L ABG HCO3 24 30 H ABG Total CO2 25 31 H ABG O2 Saturation 98 97 ABG Base Excess 1 7 H - Impressions ITS Impressions Echocardiogram 08/08/17 13:53 Impressions: LVEF 20-25%. Severe segmental left ventricular systolic dysfunction. Left ventricular diastolic dysfunction, NOS No previous EF evaluation available for comparison Left Ventricular Wall Motion: Rest Echo Findings The apical inferior, mid inferior, basal inferior, mid anterior, apical septal, mid inferior septal, basal inferior septal, mid anterior lateral and mid inferior lateral cai were hypokinetic. The apex, apical anterior, apical lateral, mid anterior septal and basal anterior septal cai were akinetic. All other wall segments showed normal motion. Findings: Aorta * Normally sized aortic root. Pericardium * The pericardium appears normal. ECG Findings * Atrial fibrillation. Aortic Valve * No aortic regurgitation. * No aortic stenosis. * Aortic valve not well visualized. Mitral Valve * No mitral regurgitation. * No mitral stenosis. * Mitral valve not well visualized. Tricuspid Valve * Unable to estimate RVSP due to lack of TR jet. * No tricuspid stenosis. * No tricuspid regurgitation. * Tricuspid valve not well visualized. Pulmonic Valve * Pulmonic valve not well visualized. * No pulmonic regurgitation. * No pulmonic stenosis. IVC * The IVC is not well evaluated. Interatrial Septum * Interatrial septum not well evaluated. Right Atrium * Right atrium is not well visualized. Left Atrium * Left atrium is not well visualized. Right Ventricle * Not well visualized Left Ventricle * LVEF 20-25%. * Severe segmental left ventricular systolic dysfunction. * left ventricular diastolic dysfunction, NOS Study Quality * Technically sub-optimal due to body habitus. - Attending Attestation I conducted a face to face diagnostic evaluation of this patient and my medical decision-making was reviewed with the Resident Physician, Dr Elmer Ruby. I agree with the documented findings, disposition and treatment plan as described except to the extent set forth below: We will continue with IV Lasix, daily weights, strict I's and O's for management of acute on chronic systolic heart failure. Continue with medical management for coronary artery disease. We will obtain PT OT evaluation, social work consult for placement.
--- NOTE | 2017-08-10 10:10 | Event Note ---
Date of Encounter: 08/10/17 Time of Encounter: 10:10 - Cardiology Event Note Discussed and reviewed with Dr. Echeverria, patient has declined further ischemic evaluation during this hospital stay. Continue with medical management. We'll sign off, reconsult as needed, follow-up scheduled. Will reevaluate potential catheterization in outpatient setting.
[2017-08-10] MEDS ORDERED: Levofloxacin 750 MG/150 ML 750 MG/150 ML BAG IVPB SCH (15:00)
[2017-08-10] MEDS: cefTRIAXone 1,000 MG in Water for inj. (sterile) 10 ML IVP SCH (15:16)
[2017-08-10] MEDS: Furosemide 40 MG/4 ML VIAL IVP SCH (17:02)
[2017-08-10] MEDS: *HR* Heparin 5,000 UNIT/ML VIAL SQ SCH (17:02)
--- NOTE | 2017-08-10 17:50 | Electrocardiograph Report ---
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
[2017-08-10] MEDS: Gabapentin 300 MG CAPSULE PO SCH (21:02)
[2017-08-10] MEDS: Temazepam 15 MG CAPSULE PO PRN (21:02)
[2017-08-10] MEDS ORDERED: Acetaminophen 325 MG TABLET PO ONE (23:13)
[2017-08-11] MEDS: Ipratropium/Albuterol Neb 3 ML IH SCH ×4 (03:30→21:53)
[2017-08-11 04:41] LABS: Basophils % 0.4 %; Eosinophils # 0.2 K/mcL (0.0-0.6); Eosinophils % 1.5 %; Hematocrit 26.3 % (35.3-44.9); Hemoglobin 8.4 g/dL (11.5-15.4); Immature Granulocytes % 0.9 % (0-4); Lymphocytes # 2.2 K/mcL (0.6-4.6); Lymphocytes % 20.3 %; Mean Corpuscular HGB Conc 31.9 g/dL (31.6-35.5); Mean Corpuscular Hemoglobin 28.7 pg (28.0-33.3); Mean Corpuscular Volume 89.8 fL (83.0-100.0); Monocytes % 9.1 %; Neutrophils # 7.5 K/mcL (1.6-8.9); Platelet Count 278 K/mcL (140-400); Red Blood Count 2.93 M/mcL (3.82-4.97); Segmented Neutrophils % 67.8 %
[2017-08-11 04:54] LABS: Albumin 2.8 g/dL (3.5-5.0); Albumin/Globulin Ratio 0.7 (1.1-2.2); Bilirubin,Direct 0.3 mg/dL (0.0-0.5); Bilirubin,Indirect 0.1 mg/dL (0.0-1.2); Bilirubin,Total 0.4 mg/dL (0.2-1.2); Calcium 8.4 mg/dL (8.6-10.8); Magnesium 1.4 mg/dL (1.6-2.6); Potassium 3.2 mEq/L (3.5-4.5); Total Protein 6.8 g/dL (6.0-8.3)
[2017-08-11] MEDS: *HR* Heparin 5,000 UNIT/ML VIAL SQ SCH ×2 (06:10→18:30)
[2017-08-11] MEDS: Furosemide 40 MG/4 ML VIAL IVP SCH (07:38)
[2017-08-11] MEDS: Insulin LISPRO 300 UNITS/3 ML VIAL SQ SCH ×4 (07:40→21:02)
[2017-08-11] MEDS: Aspirin Enteric Coated 81 MG Tablet PO SCH (07:40)
[2017-08-11] MEDS: Metoprolol XL (24 HR) Succ 25 MG TAB.ER.24H PO SCH (07:40)
--- NOTE | 2017-08-11 08:23 | Internal Med Progress Note ---
<Elmer Ruby - Last Filed: 08/11/17 12:56> Date of Encounter: 08/11/17 Time of Encounter: 08:22 - Assessment and plan (1) Acute systolic (congestive) heart failure Current Visit: Yes Status: Acute Assessment and plan: Echo this visit demonstrated EF of 20-25% Decrease her Lasix to 40 daily as she has elevation in Cr and continue strict I/ O's Continue current Cozaar and Toprol dose as her BP has been stable Fluid restrict with 1 L daily Will try to wean her off BiPAP as tolerated Needs PT/OT and oxygen qualification prior to DC, possibly tomorrow (2) NSTEMI (non-ST elevated myocardial infarction) Current Visit: Yes Status: Acute Assessment and plan: Troponin initially elevated above 4 and EKG showed q waves Cardiology recommended LHC but patient refused procedure and will medically manage Continue ASA, Lipitor, BB, ARB (3) Respiratory failure with hypoxia Current Visit: Yes Status: Acute Assessment and plan: Likely secondary to CHF exacerbation in setting of PNA/OHS Continue supportive measures with BiPAP/NC, breathing treatments as above Qualifiers: Chronicity: acute on chronic Qualified Code(s): J96.21 - Acute and chronic respiratory failure with hypoxia (4) Community acquired pneumonia Current Visit: Yes Status: Chronic Assessment and plan: CXR demonstrated bilateral opacities possible for PNA Continue on Levaquin and Rocephin, day 4 Blood cultures have remained negative Qualifiers: Laterality: unspecified laterality Qualified Code(s): J18.9 - Pneumonia, unspecified organism (5) CKD (chronic kidney disease) stage 3, GFR 30-59 ml/min Current Visit: Yes Status: Chronic Assessment and plan: Cr increased to 1.79 this morning from 1.50 yesterday Decrease Lasix to 40 IV daily as above Will monitor Cr and electrolytes closely while on Lasix (6) Diabetes mellitus type 2 in obese Current Visit: Yes Status: Chronic Assessment and plan: Her POC sugars have been below 200 Continue low dose SSI ACHS accuchecks A1c checked this visit was 7.0 (7) Hypertension Current Visit: Yes Status: Chronic Assessment and plan: Blood pressures remain stable this morning Continue Cozaar and Toprol Qualifiers: Hypertension type: essential hypertension Qualified Code(s): I10 - Essential (primary) hypertension (8) DVT prophylaxis Current Visit: Yes Status: Acute Assessment and plan: Heparin 5000 units BID - Subjective Interval history: Pt seen and examined. She states her breathing is improved from yesterday and has no shortness of breath at rest. She was only on BiPAP briefly this morning and is currently comfortable sitting up and eating breakfast. Denies any pain, nausea, vomiting, diarrhea, fevers, or chills. - Constitutional Vitals: Temp Pulse Resp BP Pulse Ox 98.0 F 85 19 115/63 98 08/11/17 07:23 08/11/17 07:23 08/11/17 07:23 08/11/17 07:23 08/11/17 07:23 General appearance: Present: cooperative, morbidly obese, pleasant, no acute distress, answers questions appropriately - Head Head exam: Present: atraumatic, normocephalic - Eye Eye exam: Present: PERRL, conjuntiva pink, sclera anicteric - Neck Neck exam general surgery: Present: supple, trachea midline. Absent: lymphadenopathy - Respiratory Respiratory exam: Present: CTAB. Absent: accessory muscle use, rales, rhonchi, wheezes - Cardiovascular Cardiovascular exam: Present: RRR, +S1, +S2. Absent: diastolic murmur, gallop, rubs, systolic murmur - GI/Abdominal GI/Abdominal exam: Present: normal bowel sounds, soft, no peritoneal signs. Absent: distended, tenderness - Extremities Exam Extremities exam: Present: pedal edema (trace), warm, radial pulses palpable and symmetrical. Absent: calf tenderness, cyanotic - Neurological Exam Neurological exam: Present: alert, no focal deficits. Absent: facial droop, speech deficit - Skin Skin exam: Present: dry, intact Internal Medicine: Result - Labs CBC & Chem 7: 08/11/17 04:25 08/11/17 04:25 Labs: Short CBC 08/11/17 Range/Units 04:25 WBC 11.0 (4.3-11.1) K/mcL Hgb 8.4 L (11.5-15.4) g/dL Hct 26.3 L (35.3-44.9) % Plt Count 278 (140-400) K/mcL Neutrophils # 7.5 (1.6-8.9) K/mcL BMP 08/11/17 04:25 Sodium 137 Potassium 3.2 L Chloride 95 L Carbon Dioxide 29 BUN 34 H Creatinine 1.79 H Glucose 181 H Calcium 8.4 L Liver Function 08/11/17 Range/Units 04:25 Total Bilirubin 0.4 (0.2-1.2) mg/dL Direct Bilirubin 0.3 (0.0-0.5) mg/dL AST 39 H (5-34) Units/L ALT 53 (0-55) Units/L Alkaline Phosphatase 81 (38-126) Units/L Albumin 2.8 L (3.5-5.0) g/dL - ABG Interpretation ABG results: ABG ABG pH 7.57 pH Units (7.32-7.45) H 08/09/17 05:57 ABG pCO2 32 mmHg (35-45) L 08/09/17 05:57 ABG pO2 79 mmHg (85-104) L 08/09/17 05:57 ABG O2 Saturation 97 % (95-98) 08/09/17 05:57 PT/INR, D-dimer PT 14.7 Seconds (9.4-12.1) H 08/08/17 11:01 - VTE Documentation of Mechanical Device: Intermittent pneumatic compression device Consult Discharge Plan - Plan Referrals: Augustin Eid DO [Primary Care Provider] - 08/19/17 1:45 pm () Chris Rao, [employer]MER [employer] [Advanced Practice Nurse] - (OFFICE WILL CALL PATIENT AT HOME WITH FOLLOW UP APPOINTMENT) <Flip Goff - Last Filed: 08/11/17 18:18> Date of Encounter: 08/11/17 - Constitutional Vitals: Temp Pulse Resp BP Pulse Ox 98.1 F 86 24 99/56 97 08/11/17 15:19 08/11/17 15:19 08/11/17 16:32 08/11/17 15:19 08/11/17 16:32 Internal Medicine: Result - Labs CBC & Chem 7: 08/11/17 04:25 08/11/17 04:25 Labs: Short CBC 08/11/17 Range/Units 04:25 WBC 11.0 (4.3-11.1) K/mcL Hgb 8.4 L (11.5-15.4) g/dL Hct 26.3 L (35.3-44.9) % Plt Count 278 (140-400) K/mcL Neutrophils # 7.5 (1.6-8.9) K/mcL BMP 08/11/17 04:25 Sodium 137 Potassium 3.2 L Chloride 95 L Carbon Dioxide 29 BUN 34 H Creatinine 1.79 H Glucose 181 H Calcium 8.4 L Liver Function 08/11/17 Range/Units 04:25 Total Bilirubin 0.4 (0.2-1.2) mg/dL Direct Bilirubin 0.3 (0.0-0.5) mg/dL AST 39 H (5-34) Units/L ALT 53 (0-55) Units/L Alkaline Phosphatase 81 (38-126) Units/L Albumin 2.8 L (3.5-5.0) g/dL - ABG Interpretation ABG results: ABG ABG pH 7.57 pH Units (7.32-7.45) H 08/09/17 05:57 ABG pCO2 32 mmHg (35-45) L 08/09/17 05:57 ABG pO2 79 mmHg (85-104) L 08/09/17 05:57 ABG O2 Saturation 97 % (95-98) 08/09/17 05:57 PT/INR, D-dimer PT 14.7 Seconds (9.4-12.1) H 08/08/17 11:01 - Attending Attestation I conducted a face to face diagnostic evaluation of this patient and my medical decision-making was reviewed with the Resident Physician, Dr Elmer Ruby. I agree with the documented findings, disposition and treatment plan as described except to the extent set forth below: Continue diuresis, fluid restriction. PT OT did not evaluate the patient due to bedrest order. I have advanced her mobility orders and will request PT evaluation.
[2017-08-11] MEDS: cefTRIAXone 1,000 MG in Water for inj. (sterile) 10 ML IVP SCH (16:39)
[2017-08-11] MEDS: Acetaminophen 325 MG TABLET PO PRN ×2 (16:42→23:58)
[2017-08-11] MEDS: Temazepam 15 MG CAPSULE PO PRN (20:57)
[2017-08-11] MEDS: *HR* LORazepam 2 MG/ML VIAL IVP PRN (20:57)
[2017-08-11] MEDS: Gabapentin 300 MG CAPSULE PO SCH (20:58)
[2017-08-12] MEDS: Ipratropium/Albuterol Neb 3 ML IH SCH ×4 (03:50→21:09)
[2017-08-12 04:06] LABS: Basophils % 0.3 %; Eosinophils # 0.2 K/mcL (0.0-0.6); Eosinophils % 2.2 %; Hematocrit 25.2 % (35.3-44.9); Immature Granulocytes % 0.9 % (0-4); Lymphocytes # 2.1 K/mcL (0.6-4.6); Lymphocytes % 20.4 %; Mean Corpuscular HGB Conc 31.7 g/dL (31.6-35.5); Mean Corpuscular Hemoglobin 28.8 pg (28.0-33.3); Mean Corpuscular Volume 90.6 fL (83.0-100.0); Mean Platelet Volume 10.6 fL (9.4-12.4); Monocytes # 0.8 K/mcL (0.0-1.3); Neutrophils # 7.1 K/mcL (1.6-8.9); Platelet Count 270 K/mcL (140-400); Red Blood Count 2.78 M/mcL (3.82-4.97); Red Cell Distribution Width 15.1 % (11.5-14.5); Segmented Neutrophils % 68.2 %
[2017-08-12 04:18] LABS: Albumin 2.7 g/dL (3.5-5.0); Albumin/Globulin Ratio 0.7 (1.1-2.2); Bilirubin,Direct 0.2 mg/dL (0.0-0.5); Bilirubin,Indirect 0.1 mg/dL (0.0-1.2); Bilirubin,Total 0.3 mg/dL (0.2-1.2); Calcium 8.6 mg/dL (8.6-10.8); Globulin 3.9 g/dL (2.4-3.5); Magnesium 1.9 mg/dL (1.6-2.6); Potassium 3.2 mEq/L (3.5-4.5); Total Protein 6.6 g/dL (6.0-8.3)
[2017-08-12] MEDS: *HR* Heparin 5,000 UNIT/ML VIAL SQ SCH ×2 (06:41→16:31)
[2017-08-12] MEDS: Metoprolol XL (24 HR) Succ 25 MG TAB.ER.24H PO SCH (08:45)
[2017-08-12] MEDS: Insulin LISPRO 300 UNITS/3 ML VIAL SQ SCH ×4 (08:46→22:11)
[2017-08-12] MEDS: Aspirin Enteric Coated 81 MG Tablet PO SCH (08:46)
[2017-08-12] MEDS ORDERED: Furosemide 40 MG/4 ML VIAL IVP SCH (09:00)
[2017-08-12] MEDS: Furosemide 40 MG TABLET PO SCH (13:38)
--- NOTE | 2017-08-12 14:26 | Internal Med Progress Note ---
<Juan Reis - Last Filed: 08/12/17 17:07> Date of Encounter: 08/12/17 Time of Encounter: 10:30 - Assessment and plan (1) Acute systolic (congestive) heart failure Current Visit: Yes Status: Acute Assessment and plan: Echo this visit demonstrated EF of 20-25% change Lasix to 40 mg PO daily strict I/O Continue current Cozaar and Toprol dose as her BP has been stable was mildly hypothalamic this a.m.; supplements to his 40 mEq PO KCl; will recheck this in the morning saturated well on room air; requires nasal O2 supplementation with any length of ambulation beyond 10 feet Needs PT/OT and oxygen qualification prior to DC, possibly tomorrow (2) NSTEMI (non-ST elevated myocardial infarction) Current Visit: Yes Status: Acute Assessment and plan: Elevated components with nonspecific EKG changes Cardiology recommended LHC but patient refused procedure and will medically manage Continue ASA, Lipitor, BB, ARB (3) Respiratory failure with hypoxia Current Visit: Yes Status: Acute Assessment and plan: Continued to continue breathing treatments and nasal O2 supplementation as needed PT/OT as above Qualifiers: Chronicity: acute on chronic Qualified Code(s): J96.21 - Acute and chronic respiratory failure with hypoxia (4) Community acquired pneumonia Current Visit: Yes Status: Chronic Assessment and plan: Continues to improve Continue on Levaquin Blood cultures negative Qualifiers: Laterality: unspecified laterality Qualified Code(s): J18.9 - Pneumonia, unspecified organism (5) CKD (chronic kidney disease) stage 3, GFR 30-59 ml/min Current Visit: Yes Status: Chronic Assessment and plan: Continues to have elevated creatinine change Lasix to 40 mg PO daily as above Will monitor Cr and electrolytes closely while on Lasix (6) Diabetes mellitus type 2 in obese Current Visit: Yes Status: Chronic Assessment and plan: Her POC sugars have been below 200 Continue low dose SSI ACHS accuchecks A1c checked this visit was 7.0 discontinue pioglitazone due to HF; will start Januvia 25mg daily and glipizide 2.5 mg daily on discharge (7) Hypertension Current Visit: Yes Status: Chronic Assessment and plan: Blood pressures remain stable this morning Continue Cozaar and Toprol Qualifiers: Hypertension type: essential hypertension Qualified Code(s): I10 - Essential (primary) hypertension (8) DVT prophylaxis Current Visit: Yes Status: Acute Assessment and plan: cont subQ heparin - Time Spent With Patient less than 15 minutes - Subjective Interval history: Patient states feels fine. Nursing supports the patient is able to ambulate without any supplementary oxygen to the bathroom and back with no difficulties. Patient did attempt ambulatory challenging desaturated into the low 80s after walking about 20 feet. As of the same, PT/OT has yet to see patient. Patient denies any acute complaints. The saturating well on room air in the mid-90s at rest. - Constitutional Vitals: Temp Pulse Resp BP Pulse Ox 98.4 F 85 20 118/73 92 08/12/17 11:28 08/12/17 11:28 08/12/17 11:28 08/12/17 11:28 08/12/17 12:30 General appearance: Present: cooperative, morbidly obese, pleasant, no acute distress, answers questions appropriately - Head Head exam: Present: atraumatic, normocephalic - Eye Eye exam: Present: PERRL, conjuntiva pink, sclera anicteric - Neck Neck exam general surgery: Present: supple, trachea midline - Respiratory Respiratory exam: Present: CTAB. Absent: accessory muscle use, rales, respiratory distress, rhonchi, stridor, wheezes, tachypnea - Cardiovascular Cardiovascular exam: Present: RRR, +S1, +S2. Absent: diastolic murmur, gallop, rubs, +S3, +S4, systolic murmur, tachycardia - GI/Abdominal GI/Abdominal exam: Present: normal bowel sounds, soft, no peritoneal signs. Absent: distended, guarding, rebound, rigid, tenderness - Extremities Exam Extremities exam: Present: pedal edema (2+ pitting edema bilaterally; no skin changes otherwise), warm, radial pulses palpable and symmetrical. Absent: calf tenderness, cyanotic - Neurological Exam Neurological exam: Present: oriented X3, no focal deficits. Absent: facial droop, speech deficit - Skin Skin exam: Present: dry, intact, normal color. Absent: cyanosis, diaphoretic, mottled, pallor Internal Medicine: Result - Labs CBC & Chem 7: 08/12/17 03:35 08/12/17 03:35 Labs: Short CBC 08/12/17 Range/Units 03:35 WBC 10.4 (4.3-11.1) K/mcL Hgb 8.0 L (11.5-15.4) g/dL Hct 25.2 L (35.3-44.9) % Plt Count 270 (140-400) K/mcL Neutrophils # 7.1 (1.6-8.9) K/mcL BMP 08/12/17 03:35 Sodium 137 Potassium 3.2 L Chloride 95 L Carbon Dioxide 31 H BUN 36 H Creatinine 1.73 H Glucose 195 H Calcium 8.6 Liver Function 08/12/17 Range/Units 03:35 Total Bilirubin 0.3 (0.2-1.2) mg/dL Direct Bilirubin 0.2 (0.0-0.5) mg/dL AST 32 (5-34) Units/L ALT 47 (0-55) Units/L Alkaline Phosphatase 80 (38-126) Units/L Albumin 2.7 L (3.5-5.0) g/dL Laboratory Last Values WBC 10.4 K/mcL (4.3-11.1) 08/12/17 03:35 RBC 2.78 M/mcL (3.82-4.97) L 08/12/17 03:35 Hgb 8.0 g/dL (11.5-15.4) L 08/12/17 03:35 Hct 25.2 % (35.3-44.9) L 08/12/17 03:35 MCV 90.6 fL (83.0-100.0) 08/12/17 03:35 MCH 28.8 pg (28.0-33.3) 08/12/17 03:35 MCHC 31.7 g/dL (31.6-35.5) 08/12/17 03:35 RDW 15.1 % (11.5-14.5) H 08/12/17 03:35 Plt Count 270 K/mcL (140-400) 08/12/17 03:35 MPV 10.6 fL (9.4-12.4) 08/12/17 03:35 Immature Gran % 0.9 % (0-4) 08/12/17 03:35 Seg Neutrophils % 68.2 % 08/12/17 03:35 Lymphocytes % 20.4 % 08/12/17 03:35 Monocytes % 8.0 % 08/12/17 03:35 Eosinophils % 2.2 % 08/12/17 03:35 Basophils % 0.3 % 08/12/17 03:35 Neutrophils # 7.1 K/mcL (1.6-8.9) 08/12/17 03:35 Lymphocytes # 2.1 K/mcL (0.6-4.6) 08/12/17 03:35 Monocytes # 0.8 K/mcL (0.0-1.3) 08/12/17 03:35 Eosinophils # 0.2 K/mcL (0.0-0.6) 08/12/17 03:35 Basophils # 0.0 K/mcL (0.0-0.2) 08/12/17 03:35 Nucleated RBCs/100 WBC 0.2 /100 WBC (0) H 08/10/17 03:50 Immature Plt Fraction 3.6 % (1.1-6.1) 08/08/17 17:15 PT 14.7 Seconds (9.4-12.1) H 08/08/17 11:01 INR 1.4 08/08/17 11:01 APTT 90.0 Seconds (26.0-36.0) H 08/10/17 02:00 Sample Site R Radial 08/09/17 05:57 ABG pH 7.57 pH Units (7.32-7.45) H 08/09/17 05:57 ABG pCO2 32 mmHg (35-45) L 08/09/17 05:57 ABG pO2 79 mmHg (85-104) L 08/09/17 05:57 ABG HCO3 30 mEq/L (21-27) H 08/09/17 05:57 ABG Total CO2 31 mEq/L (20-26) H 08/09/17 05:57 ABG O2 Saturation 97 % (95-98) 08/09/17 05:57 ABG Base Excess 7 mEq/L (-2 to 3) H 08/09/17 05:57 Enrique Test Positive 08/09/17 05:57 O2 Delivery Device BiPAP 08/09/17 05:57 Inspired O2 45.0 (1-15=lpm mi20-227=%) 08/09/17 05:57 PEEP 8 cm H2O 08/09/17 05:57 Sodium 137 mEq/L (136-145) 08/12/17 03:35 Potassium 3.2 mEq/L (3.5-4.5) L 08/12/17 03:35 Chloride 95 mEq/L (98-109) L 08/12/17 03:35 Carbon Dioxide 31 mEq/L (19-29) H 08/12/17 03:35 BUN 36 mg/dL (7-20) H 08/12/17 03:35 Creatinine 1.73 mg/dL (0.57-1.11) H 08/12/17 03:35 Est GFR ( Amer) 35 (> 60) L 08/12/17 03:35 Est GFR (Non-Af Amer) 29 (> 60) L 08/12/17 03:35 BUN/Creatinine Ratio 21 (6-26) 08/12/17 03:35 Glucose 195 mg/dL (70-99) H 08/12/17 03:35 POC Glucose 208 (58-89) H 08/12/17 07:50 Est Mean Plasma Glucose 154 mg/dl 08/08/17 17:15 Hemoglobin A1c 7.0 % (-5.6) H 08/08/17 17:15 Calculated Osmolality 298 (280-300) 08/12/17 03:35 Lactic Acid 1.8 mmol/L (0.5-2.2) 08/08/17 17:15 Calcium 8.6 mg/dL (8.6-10.8) 08/12/17 03:35 Ionized Calcium 1.14 mmol/L (1.15-1.35) L 08/09/17 02:45 Phosphorus 3.5 mg/dL (2.3-4.7) 08/09/17 02:45 Magnesium 1.9 mg/dL (1.6-2.6) 08/12/17 03:35 Total Bilirubin 0.3 mg/dL (0.2-1.2) 08/12/17 03:35 Direct Bilirubin 0.2 mg/dL (0.0-0.5) 08/12/17 03:35 Indirect Bilirubin 0.1 mg/dL (0.0-1.2) 08/12/17 03:35 AST 32 Units/L (5-34) 08/12/17 03:35 ALT 47 Units/L (0-55) 08/12/17 03:35 Alkaline Phosphatase 80 Units/L (38-126) 08/12/17 03:35 Troponin I 6.14 ng/mL (0-0.03) H* 08/09/17 00:20 B-Natriuretic Peptide 1970 pg/mL (0-100) H 08/08/17 11:01 Serum Total Protein 6.6 g/dL (6.0-8.3) 08/12/17 03:35 Albumin 2.7 g/dL (3.5-5.0) L 08/12/17 03:35 Globulin 3.9 g/dL (2.4-3.5) H 08/12/17 03:35 Albumin/Globulin Ratio 0.7 (1.1-2.2) L 08/12/17 03:35 Urine Color Dark Yellow (Yellow) 08/08/17 14:23 Urine Clarity Clear (Clear) 08/08/17 14:23 Urine pH 5.5 pH Units (5.0-8.0) 08/08/17 14:23 Ur Specific [place] 1.025 (1.010-1.025) 08/08/17 14:23 Urine Protein 30 mg/dL (Neg-Trace) H 08/08/17 14:23 Urine Glucose (UA) Normal mg/dL (Normal) 08/08/17 14:23 Urine Ketones Negative mg/dL (Negative) 08/08/17 14:23 Urine Blood Negative (Negative) 08/08/17 14:23 Urine Nitrite Negative (Negative) 08/08/17 14:23 Urine Bilirubin Small (Negative) H 08/08/17 14:23 Urine Urobilinogen Normal mg/dL (Normal) 08/08/17 14:23 Ur Leukocyte Esterase Small (Negative) H 08/08/17 14:23 Urine Microscopic RBC 5-15 per hpf (0-3) H 08/08/17 14:23 Urine Microscopic WBC 5-15 per hpf (0-3) H 08/08/17 14:23 Ur Squamous Epith Cells Many per lpf (None-Few) H 08/08/17 14:23 Urine Bacteria None Seen per hpf (None-Few) 08/08/17 14:23 Hyaline Casts None Seen per lpf (None-Few) 08/08/17 14:23 Ur Culture Indicated? YES (NO) A 08/08/17 14:23 Stool Occult Blood Negative (Negative) 08/08/17 12:02 - ABG Interpretation ABG results: ABG ABG pH 7.57 pH Units (7.32-7.45) H 08/09/17 05:57 ABG pCO2 32 mmHg (35-45) L 08/09/17 05:57 ABG pO2 79 mmHg (85-104) L 08/09/17 05:57 ABG O2 Saturation 97 % (95-98) 08/09/17 05:57 PT/INR, D-dimer PT 14.7 Seconds (9.4-12.1) H 08/08/17 11:01 - Diagnostic Studies Other Images Additional comments: Chest X-Ray 08/08/17 10:00 IMPRESSION: Cardiomegaly with suspected dependent pulmonary edema in the mid and lower lung donnelly. There may also be a small right-sided pleural effusion at the costophrenic angle. D/ / Sarbjit Salvador MD / Sarbjit Salvador MD Interpreting Provider: Sarbjit Salvador MD Echocardiogram 08/08/17 13:53 Impressions: LVEF 20-25%. Severe segmental left ventricular systolic dysfunction. Left ventricular diastolic dysfunction, NOS No previous EF evaluation available for comparison - VTE Documentation of Mechanical Device: Intermittent pneumatic compression device Consult Discharge Plan - Plan Referrals: Augustin Eid DO [Primary Care Provider] - 08/19/17 1:45 pm () Chris Rao, TIRE INSPECTOR [Advanced Practice Nurse] - (OFFICE WILL CALL PATIENT AT HOME WITH FOLLOW UP APPOINTMENT) <Flip Goff - Last Filed: 08/12/17 18:29> Date of Encounter: 08/12/17 - Constitutional Vitals: Temp Pulse Resp BP Pulse Ox 97.8 F 80 17 105/57 100 08/12/17 16:19 08/12/17 16:19 08/12/17 16:19 08/12/17 16:19 08/12/17 16:19 Internal Medicine: Result - Labs CBC & Chem 7: 08/12/17 03:35 08/12/17 03:35 Labs: Short CBC 08/12/17 Range/Units 03:35 WBC 10.4 (4.3-11.1) K/mcL Hgb 8.0 L (11.5-15.4) g/dL Hct 25.2 L (35.3-44.9) % Plt Count 270 (140-400) K/mcL Neutrophils # 7.1 (1.6-8.9) K/mcL BMP 08/12/17 03:35 Sodium 137 Potassium 3.2 L Chloride 95 L Carbon Dioxide 31 H BUN 36 H Creatinine 1.73 H Glucose 195 H Calcium 8.6 Liver Function 08/12/17 Range/Units 03:35 Total Bilirubin 0.3 (0.2-1.2) mg/dL Direct Bilirubin 0.2 (0.0-0.5) mg/dL AST 32 (5-34) Units/L ALT 47 (0-55) Units/L Alkaline Phosphatase 80 (38-126) Units/L Albumin 2.7 L (3.5-5.0) g/dL - ABG Interpretation ABG results: ABG ABG pH 7.57 pH Units (7.32-7.45) H 08/09/17 05:57 ABG pCO2 32 mmHg (35-45) L 08/09/17 05:57 ABG pO2 79 mmHg (85-104) L 08/09/17 05:57 ABG O2 Saturation 97 % (95-98) 08/09/17 05:57 PT/INR, D-dimer PT 14.7 Seconds (9.4-12.1) H 08/08/17 11:01 - Attending Attestation I conducted a face to face diagnostic evaluation of this patient and my medical decision-making was reviewed with the Resident Physician, Dr. Chato Martinez. I agree with the documented findings, disposition and treatment plan as described except to the extent set forth below: On exam she is in no acute distress. Heart is regular. Lungs with fine crackles at the right base. Extremities with 1+ bilaterally. Oxygen saturation was 87% on room air with ambulating to the window and back. Plan: We will continue with diuresis. Strict I's and O's. Fluid restriction. We will arrange for home oxygen. PT OT.
[2017-08-12] MEDS: *HR* LORazepam 2 MG/ML VIAL IVP PRN (20:11)
[2017-08-12] MEDS: Temazepam 15 MG CAPSULE PO PRN (20:11)
[2017-08-12] MEDS: Gabapentin 300 MG CAPSULE PO SCH (20:11)
[2017-08-12] MEDS: Acetaminophen 325 MG TABLET PO PRN (20:18)
[2017-08-13] MEDS: Ipratropium/Albuterol Neb 3 ML IH SCH (04:04)
[2017-08-13] MEDS: *HR* Heparin 5,000 UNIT/ML VIAL SQ SCH (06:15)
[2017-08-13 06:32] LABS: Hematocrit 28.2 % (35.3-44.9); Hemoglobin 8.8 g/dL (11.5-15.4); Mean Corpuscular HGB Conc 31.2 g/dL (31.6-35.5); Mean Corpuscular Hemoglobin 28.5 pg (28.0-33.3); Mean Corpuscular Volume 91.3 fL (83.0-100.0); Mean Platelet Volume 10.9 fL (9.4-12.4); Platelet Count 289 K/mcL (140-400); Red Blood Count 3.09 M/mcL (3.82-4.97); Red Cell Distribution Width 15.2 % (11.5-14.5)
[2017-08-13 06:43] LABS: Albumin 2.9 g/dL (3.5-5.0); Albumin/Globulin Ratio 0.7 (1.1-2.2); Bilirubin,Direct 0.3 mg/dL (0.0-0.5); Bilirubin,Indirect 0.2 mg/dL (0.0-1.2); Bilirubin,Total 0.5 mg/dL (0.2-1.2); Globulin 4.2 g/dL (2.4-3.5); Magnesium 2.2 mg/dL (1.6-2.6); Potassium 3.8 mEq/L (3.5-4.5); Total Protein 7.1 g/dL (6.0-8.3)
[2017-08-13 07:23] VITALS: BP 120/51
[2017-08-13 07:40] LABS: Eosinophils # 0.2 K/mcL (0.0-0.6); Lymphocytes # 2.8 K/mcL (0.6-4.6); Monocytes # 0.2 K/mcL (0.0-1.3); Neutrophils # 8.3 K/mcL (1.6-8.9)
[2017-08-13 07:42] LABS: Platelet Estimate Normal (Normal); Reactive Lymphocytes Present (Not Present)
[2017-08-13] MEDS: Metoprolol XL (24 HR) Succ 25 MG TAB.ER.24H PO SCH (08:10)
[2017-08-13] MEDS: Furosemide 40 MG TABLET PO SCH (08:11)
[2017-08-13] MEDS: Insulin LISPRO 300 UNITS/3 ML VIAL SQ SCH (08:11)
[2017-08-13] MEDS: Aspirin Enteric Coated 81 MG Tablet PO SCH (08:11)
--- NOTE | 2017-08-13 09:07 | Physician Discharge Referral ---
Home Health/Hosp Referral Info Transfer to: Home Health Attending Provider: Dr. Goff Provider in Charge Post Discharge: PCP - Diagnosis (1) Acute systolic (congestive) heart failure Priority: Primary Status: Acute (2) NSTEMI (non-ST elevated myocardial infarction) Priority: Secondary Status: Acute (3) Respiratory failure with hypoxia Priority: Secondary Status: Acute (4) Community acquired pneumonia Priority: Secondary Status: Chronic (5) CKD (chronic kidney disease) stage 3, GFR 30-59 ml/min Priority: Secondary Status: Chronic (6) Diabetes mellitus type 2 in obese Priority: Secondary Status: Chronic (7) Hypertension Priority: Secondary Status: Chronic (8) DVT prophylaxis Priority: Secondary Status: Acute - Respiratory Orders Oxygen / L per min (2L/m with activity) Smoking Cessation: Smoking cessation has been advised. For more information, call the [place] Tobacco Quit Line at 1-033-CHQW-NOW. - Diet/Nutrition Diet/Nutrition Orders: No Added Salt (GAURANG), Cardiac, No Concentrated Sweets - Activity Activity Orders: Ambulate, Walker - Services Needed Following services are medically necessary services: Nursing, Home Health Aide, Physical Therapy - Transfer Medications Prescriptions: Aspirin [Lo-Dose Aspirin EC] 81 mg PO DAILY 30 Days #30 tablet.dr Furosemide [Lasix] 40 mg PO DAILY 30 Days #30 tablet GlipiZIDE [Glucotrol Xl] 2.5 mg PO DAILY 30 Days #30 tab.er.24 Metoprolol Succinate 25 mg PO DAILY 30 Days #30 tab.er.24h Oxygen 2 l .ROUTE AD 30 Days #1 each SitaGLIPtin [Januvia] 25 mg PO DAILY 30 Days #30 tablet Spironolactone [Aldactone] 12.5 mg PO DAILY 30 Days #30 tablet Home Medications: Amlodipine Besylate 10 mg PO DAILY 08/08/17 [History] Amoxicillin/Clavulanate [Augmentin] 875 mg PO BID 08/08/17 [History] Cyclobenzaprine [Flexeril] 10 mg PO TID 08/08/17 [History] Gabapentin [Neurontin] 300 mg PO HS 08/08/17 [History] Losartan Potassium [Cozaar] 100 mg PO DAILY 08/08/17 [History] Polyethylene Glycol 3350 [MiraLAX Powder Bulk 17.9 Oz] 1 scoop PO DAILY [History] Sertraline [Zoloft] 50 mg PO DAILY 08/08/17 [History] Simvastatin [Zocor] 40 mg PO HS 08/08/17 [History] Tramadol HCl [Ultram] 50 mg PO QID PRN 08/08/17 [History] Aspirin [Lo-Dose Aspirin EC] 81 mg PO DAILY 30 Days #30 tablet.dr 08/13/17 [Rx] Furosemide [Lasix] 40 mg PO DAILY 30 Days #30 tablet 08/13/17 [Rx] GlipiZIDE [Glucotrol Xl] 2.5 mg PO DAILY 30 Days #30 tab.er.24 08/13/17 [Rx] Metoprolol Succinate 25 mg PO DAILY 30 Days #30 tab.er.24h 08/13/17 [Rx] Oxygen 2 l .ROUTE AD 30 Days #1 each 08/13/17 [Rx] SitaGLIPtin [Januvia] 25 mg PO DAILY 30 Days #30 tablet 08/13/17 [Rx] Spironolactone [Aldactone] 12.5 mg PO DAILY 30 Days #30 tablet 08/13/17 [Rx] Allergies/Adverse Reactions: 3 Allergy/AdvReac Type Severity Reaction Status Date / Time codeine Allergy Rash Verified 08/08/17 09:56 Certification: Further, I certify that my clinical findings support that this patient is homebound (i.e. absences from home require considerable and taxing effort and are for medical reasons or zoroastrian services or infrequently or short duration when for other reasons) because: Homebound Reason: Severity of cardiac or pulmonary status limits activity tolerance Attestation: My signature below is to certify that this patient is under my care and that I, or nurse practitioner, or a physician's assistant printer floor covering working with me, has a face-to -face encounter with this patient.
--- NOTE | 2017-08-13 10:02 | Discharge Summary ---
<Juan Reis - Last Filed: 08/13/17 11:29> Date of Encounter: 08/13/17 Time of Encounter: 08:00 - Discharge Diagnosis (1) Acute systolic (congestive) heart failure Priority: Primary Status: Acute (2) NSTEMI (non-ST elevated myocardial infarction) Priority: Secondary Status: Acute (3) Respiratory failure with hypoxia Priority: Secondary Status: Acute Qualifiers: Chronicity: acute on chronic Qualified Code(s): J96.21 - Acute and chronic respiratory failure with hypoxia (4) CKD (chronic kidney disease) stage 3, GFR 30-59 ml/min Status: Chronic (5) Diabetes mellitus type 2 in obese Priority: Secondary Status: Chronic (6) Hypertension Priority: Secondary Status: Chronic Qualifiers: Hypertension type: essential hypertension Qualified Code(s): I10 - Essential (primary) hypertension - Discharge Medications Prescriptions: Aspirin [Lo-Dose Aspirin EC] 81 mg PO DAILY 30 Days #30 tablet.dr Furosemide [Lasix] 40 mg PO DAILY 30 Days #30 tablet GlipiZIDE [Glucotrol Xl] 2.5 mg PO DAILY 30 Days #30 tab.er.24 Metoprolol Succinate 25 mg PO DAILY 30 Days #30 tab.er.24h Oxygen 2 l .ROUTE AD 30 Days #1 each SitaGLIPtin [Januvia] 25 mg PO DAILY 30 Days #30 tablet Spironolactone [Aldactone] 12.5 mg PO DAILY 30 Days #30 tablet Home Medications: Amlodipine Besylate 10 mg PO DAILY 08/08/17 [History] Amoxicillin/Clavulanate [Augmentin] 875 mg PO BID 08/08/17 [History] Cyclobenzaprine [Flexeril] 10 mg PO TID 08/08/17 [History] Gabapentin [Neurontin] 300 mg PO HS 08/08/17 [History] Losartan Potassium [Cozaar] 100 mg PO DAILY 08/08/17 [History] Polyethylene Glycol 3350 [MiraLAX Powder Bulk 17.9 Oz] 1 scoop PO DAILY [History] Sertraline [Zoloft] 50 mg PO DAILY 08/08/17 [History] Simvastatin [Zocor] 40 mg PO HS 08/08/17 [History] Tramadol HCl [Ultram] 50 mg PO QID PRN 08/08/17 [History] Aspirin [Lo-Dose Aspirin EC] 81 mg PO DAILY 30 Days #30 tablet. 08/13/17 [Rx] Furosemide [Lasix] 40 mg PO DAILY 30 Days #30 tablet 08/13/17 [Rx] GlipiZIDE [Glucotrol Xl] 2.5 mg PO DAILY 30 Days #30 tab.er.24 08/13/17 [Rx] Metoprolol Succinate 25 mg PO DAILY 30 Days #30 tab.er.24h 08/13/17 [Rx] Oxygen 2 l .ROUTE AD 30 Days #1 each 08/13/17 [Rx] SitaGLIPtin [Januvia] 25 mg PO DAILY 30 Days #30 tablet 08/13/17 [Rx] Spironolactone [Aldactone] 12.5 mg PO DAILY 30 Days #30 tablet 08/13/17 [Rx] Allergies/Adverse Reactions: 3 Allergy/AdvReac Type Severity Reaction Status Date / Time codeine Allergy Rash Verified 08/08/17 09:56 Procedures/tests Complete & Pending: Procedures Performed prior 72 hours Category Date Time Status CL Cardiac Catheterization [CL] Routine Tax Commissioner 08/11/17 06:05 Stop Req Date of admission: 08/08/17 12:31 Primary care physician: Augustin Eid, Consults: 08/08/17 14:09 Consult to Cardiology [CONS] Routine Comment: Consulting Provider: Clair Dupree Reason for Consult: Elevated trop/HF Call Completed: Yes 08/10/17 06:05 Consult to Cardiac Rehabilitation-Phase1 [CONS] Routine Comment: Reason for Consult: NSTEMI Call Completed: No 08/10/17 09:42 Consult to Occupational Therapy [CONS] Routine Comment: Evaluate, develop and implement POC Reason for Consult: lives alone, h/o falls, may need home health/rehab upon discharge Consult to Physical Therapy [CONS] Routine Comment: Evaluate, develop and implement POC Reason for Consult: lives alone, h/o falls, may need home health/rehab upon discharge Consult to Bar Tender [CONS] Routine Reason for SW Consult: lives alone, h/o falls, may need home health/rehab upon discharge Discharging clinician: Juna Reis Anticipated date of discharge: 08/13/17 - Patient Status Disposition: Home Health Service Condition: Fair Functional capacity at discharge: uses cane/walker Overall status at discharge: patient is progressing back to baseline - Discharge Instructions Instructions: Metoprolol (By mouth), Spironolactone (By mouth), Furosemide (By mouth), Glipizide (By mouth), Aspirin (By mouth), Sitagliptin (By mouth) Follow Up With: Augustin Eid DO [Primary Care Provider] - 08/19/17 1:45 pm () Chris Rao, [employer] OPERATOR [Advanced Practice Nurse] - (OFFICE WILL CALL PATIENT AT HOME WITH FOLLOW UP APPOINTMENT) Additional Instructions: Follow-up appointments: If there is not an appointment listed below, please call your physician and schedule a follow-up appointment. If you have congestive heart failure and your symptoms return, make an appointment with your physician. Medication List: Carry an up to date list of medications you are taking at all time. We have given you an updated medication list including any new medications that you have been prescribed. Please provide that list to your primary provider - Diet and Activity Activity: ambulate only with your walker, as per physical therapy, increase activity as tolerated, wear oxygen at all times Diet: diabetic diet, low salt diet Interval History: PT/OT work patient and recommend home oxygen. No overnight events. Patient has had suboptimal oxygen demand when ambulating; patient does, however, saturated well on room air at rest. Patient refuses SNF placement and as such is insistent on being discharged home she is medically stable. Patient has no acute symptoms or complaints. Hospital course: Ms. John is a 71 year old female admitted by emergency department for chest pain, NSTEMI, and CHF exacerbation. Cardiology and pulmonology have followed on case; patient has refused any interventional measures including LHC; patient insisted instead outpatient follow-up for such interventional measures. Patient was started on heparin drip which was shortly discharged. Patient had an echo done during stay which showed EF 20-25% as well as a BNP of 1970; patient did improve with IV Lasix which was initially 40 mg daily and later transitioned to 40 mg PO daily. Fluid intake was strictly controlled and patient was maintained on a cardiac diet. Patient did have mild JANENE throughout hospital course; this was one indication for the de-escalation of IV Lasix which does show some improvement though not quite at baseline as of discharge. Patient did continue to be in suboptimal respiratory status throughout stay ultimately saturating well on room air, however, desaturating significantly with extended ambulation. Completed oxygen qualification study and will discharge patient on baseline two liters at rest and 4 L with activity by nasal cannula. Patient's discharge medications were reconciled with consideration of CHF, ACS, and CKD. Overall, patient is in stable hemodynamic status and is a viable candidate for discharge. Strongly considered SNF placement, however, patient declines at this time and as such will discharge patient home with appropriate home health and home PT follow. Patient will need close follow-up with primary care and cardiology. - Time Spent with Patient Total time spent providing and/or coordinating discharge services: Less than 30 minutes - Constitutional Vitals: Temp Pulse Resp BP Pulse Ox 98.7 F 89 20 120/51 94 08/13/17 07:15 08/13/17 08:16 08/13/17 07:15 08/13/17 07:15 08/13/17 07:15 General appearance: Present: cooperative, morbidly obese, pleasant, no acute distress, answers questions appropriately - Head Head exam: Present: atraumatic, normocephalic - Eye Eye exam: Present: PERRL, conjuntiva pink, sclera anicteric - Neck Neck exam general surgery: Present: supple, trachea midline. Absent: lymphadenopathy - Respiratory Respiratory exam: Present: CTAB. Absent: accessory muscle use, rales, respiratory distress, rhonchi, stridor, wheezes, tachypnea - Cardiovascular Cardiovascular exam: Present: RRR, +S1, +S2. Absent: diastolic murmur, gallop, JVD, rubs, +S3, +S4, systolic murmur - GI/Abdominal GI/Abdominal exam: Present: soft. Absent: distended, tenderness - Extremities Exam Extremities exam: Present: pedal edema (Bilateral pitting edema 2+ and stable from prior exams), warm, radial pulses palpable and symmetrical. Absent: calf tenderness, cyanotic - Neurological Exam Neurological exam: Present: oriented X3. Absent: facial droop, speech deficit - Skin Skin exam: Present: dry, intact, normal color. Absent: cyanosis, diaphoretic, erythema, mottled, pallor - VTE Documentation of Mechanical Device: Intermittent pneumatic compression device <Flip Goff - Last Filed: 08/13/17 19:02> Date of Encounter: 08/13/17 Procedures/tests Complete & Pending: Procedures Performed prior 72 hours Category Date Time Status CL Cardiac Catheterization [CL] Routine Tax Commissioner 08/11/17 06:05 Stop Req Date of admission: 08/08/17 12:31 Primary care physician: Augustin Eid, Consults: 08/08/17 14:09 Consult to Cardiology [CONS] Routine Comment: Consulting Provider: Cardiology Leia Reason for Consult: Elevated trop/HF Call Completed: Yes 08/10/17 06:05 Consult to Cardiac Rehabilitation-Phase1 [CONS] Routine Comment: Reason for Consult: NSTEMI Call Completed: No 08/10/17 09:42 Consult to Occupational Therapy [CONS] Routine Comment: Evaluate, develop and implement POC Reason for Consult: lives alone, h/o falls, may need home health/rehab upon discharge Consult to Physical Therapy [CONS] Routine Comment: Evaluate, develop and implement POC Reason for Consult: lives alone, h/o falls, may need home health/rehab upon discharge Consult to Bar Tender [CONS] Routine Reason for SW Consult: lives alone, h/o falls, may need home health/rehab upon discharge Hospital course: Ms. John is a 71 year old female - Time Spent with Patient Total time spent providing and/or coordinating discharge services: - Constitutional Vitals: Temp Pulse Resp BP Pulse Ox 98.7 F 89 20 120/51 94 08/13/17 07:15 08/13/17 08:16 08/13/17 07:15 08/13/17 07:15 08/13/17 07:15 - Attending Attestation I conducted a face to face diagnostic evaluation of this patient and my medical decision-making was reviewed with the Resident Physician, Dr. Chato Martinez. I agree with the documented findings, disposition and treatment plan as described except to the extent set forth below: Patient reports no shortness of breath at rest. She appears comfortable. Full sentences. Breath sounds are equal bilaterally. Heart is regular. There is 1 + pitting edema. Plan: Will discharge home with Lasix, Toprol, ARB and will start low-dose Aldactone. Follow-up with primary care physician closely and with cardiology. For type 2 diabetes she will be discharged with Januvia and glipizide.
== END 2017-08-13 11:09 | disposition home health service (06) | DRG 280 ==
LOC: EMEROO 09:53 → SUATTDRO 12:31 → ICNU 12:31 → 2NNU 08-09 16:25
PROVIDERS: ADMIT Internal Medicine Pulmonary Disease; ATTEND Internal Medicine

== ENCOUNTER 2017-09-18 12:17 | Inpatient (IN) ==
[2017-09-18] MEDS ORDERED: Ipratropium/Albuterol Neb 3 ML IH ONE (12:57)
[2017-09-18] MEDS ORDERED: 0.9 % Sodium Chloride 500 ML IVC ONE (12:58)
[2017-09-18] MEDS ORDERED: Ondansetron 4 MG/2 ML VIAL IVP ONE (12:58)
--- NOTE | 2017-09-18 13:12 | Emergency Department Note ---
Addendum entered and electronically signed by Steve Dejesus DO 09/18/17 16: 32: The patient's blood pressure dropped low she was on the Cardizem drip. Cardiology was called. They recommend starting the patient on amiodarone without the bolus. They do not recommend digoxin at this time secondary to kidney function. Recommend stopping Cardizem. Start standard dose heparin. Original Note: Disposition Clinical Impression: New onset a-fib, Pleural effusion, Acute kidney injury Disposition: Admitted As Inpatient Condition: Fair General Adult HPI - General Chief complaint: ED Shortness of Breath/Dyspnea Stated complaint: MANJIT, hallucinations Time Seen by Provider: 09/18/17 12:46 Source: patient Limitations: physical limitation Nursing Notes Reviewed: Yes Vital Signs Reviewed: Yes - History of Present Illness HPI Narrative: Patient with history of COPD, CHF, recent and STEMI presents for evaluation of multiple complaints. Patient states that she started feeling bad on Friday. Patient is hard to express how she has been feeling. Describes general malice. Patient describes nausea and constipation. States shortness of breath started earlier today. Worse with exertion. Associated cough. She states that she is having hallucinations that started on Friday and ended on Friday. She noticed someone in the ER that was not there and also heard voices that were not there. She relates these to medications that she has quit taking. She is unsure about what she is taking at home and what medications she has stopped. Pain Scale: 0 - Related Data Home Medications Medication Instructions Recorded Confirmed Amlodipine Besylate 10 mg PO DAILY 08/08/17 09/18/17 Cyclobenzaprine [Flexeril] 10 mg PO TID 08/08/17 09/18/17 Gabapentin [Neurontin] 300 mg PO HS 08/08/17 09/18/17 Losartan Potassium [Cozaar] 100 mg PO DAILY 08/08/17 09/18/17 Polyethylene Glycol 3350 [MiraLAX 1 scoop PO DAILY 08/08/17 09/18/17 Powder Bulk 17.9 Oz] Sertraline [Zoloft] 50 mg PO DAILY 08/08/17 09/18/17 Simvastatin [Zocor] 40 mg PO HS 08/08/17 09/18/17 Tramadol HCl [Ultram] 50 mg PO QID PRN 11/10/17 12/21/17 LORazepam [Ativan] 0.5 mg PO BID PRN 09/18/17 09/18/17 Nystatin OINT [Mycostatin] 1 appl TP BID 09/18/17 09/18/17 Previous Rx's Medication Instructions Recorded Aspirin [Lo-Dose Aspirin EC] 81 mg PO DAILY 30 Days #30 08/13/17 tablet. Oxygen 2 l .ROUTE AD 30 Days #1 each 08/13/17 Allergies Allergy/AdvReac Type Severity Reaction Status Date / Time codeine Allergy Rash Verified 09/18/17 12:40 Review of Systems: CONSTITUTIONAL: Malaise and fatigue No weight loss, fever, chills, HEENT: Eyes: No visual changes. Ears, Nose, Throat: No hearing loss, difficulty talking or unable to swallow. SKIN: Skin breakdown under breasts CARDIOVASCULAR: Increased edema of the lower extremities No chest pain, chest pressure or chest discomfort. No palpitations RESPIRATORY: Shortness of breath cough is nonproductive GASTROINTESTINAL: Nausea No anorexia, vomiting or diarrhea. No abdominal pain or blood. GENITOURINARY: No burning on urination or hematuria. NEUROLOGICAL: No headache, dizziness, syncope, paralysis, ataxia, numbness or tingling in the extremities. No change in bowel or bladder control. MUSCULOSKELETAL: No muscle pain, back pain, joint pain or stiffness. HEMATOLOGIC: No bleeding or bruising. LYMPHATICS: No enlarged lymphnodes. PSYCHIATRIC: No change to depression or anxiety. ENDOCRINOLOGIC: No reports of heat or cold intolerance, Polyuria ALLERGIES: No history of asthma, hives, eczema or rhinitis. Past Medical History - Past Medical History Medical history: Reports: arthritis, cancer, diabetes, hypertension Surgical history: Reports: appendectomy, cholecystectomy, hysterectomy Psychiatric history: Reports: anxiety - Social History Smoking Status: Former smoker Alcohol use: Reports: none Drug use: Reports: none Physical Exam General: nontoxic, no acute distress Head: Normocephalic Atraumatic Eyes: PERRL, EOMI ENT: Airway patent, no stridor Neck: supple, no meningismus Chest: Mild wheezing Cardiac: Regular rhythm, no murmurs, rubs or gallops Abdomen: soft, nontender, nondistended; no guarding, rebound, or tenderness to percussion Musculoskeletal: Calves symmetric, nontender, no palpable cord Skin: Skin breakdown underneath breasts bilaterally Neuro: Alert and Oriented to person, place, and time; No focal deficit, CN 2-12 symmetric and intact - General Limitations: physical limitation General appearance: alert, in no apparent distress Course - Reevaluation(s) Reevaluation #1: Discussed with the patient concerning blood work which includes an elevated BNP , troponin, elevated creatinine level as well as pleural effusions in the setting of new onset A. fib. The patient is been placed on Cardizem and her heart rate has decreased and her blood pressure has improved. The patient's condition at this point does warrant further admission and evaluation. Patient understands this as she does not feel well. She has agreed to stay even though she was initially reluctant. - Consultations Consultation #1: Discussed with hospitalist, Dr. Leon, patient accepted for admission Vital Signs Temperature 98.2 F 09/18/17 12:40 Pulse Rate 121 09/18/17 12:40 Respiratory Rate 22 09/18/17 12:40 Blood Pressure 107/70 09/18/17 12:40 O2 Sat by Pulse Oximetry 96 09/18/17 12:40 Temperature 98.7 F 09/18/17 19:24 Pulse Rate 120 09/18/17 19:24 Respiratory Rate 17 09/18/17 19:24 Blood Pressure 103/53 09/18/17 19:24 O2 Sat by Pulse Oximetry 75 09/18/17 19:24 Oxygen Delivery Oxygen Delivery Room Air Medical Decision Making - Lab Data Result diagrams: 09/18/17 13:11 09/18/17 13:11 Lab Results 09/18/17 09/18/17 09/18/17 Range/Units 13:11 13:11 13:11 WBC 9.6 (4.3-11.1) K/mcL RBC 3.38 L (3.82-4.97) M/mcL Hgb 9.2 L (11.5-15.4) g/dL Hct 31.1 L (35.3-44.9) % MCV 92.0 (83.0-100.0) fL MCH 27.2 L (28.0-33.3) pg MCHC 29.6 L (31.6-35.5) g/dL RDW 17.7 H (11.5-14.5) % Plt Count 232 (140-400) K/mcL MPV 11.2 (9.4-12.4) fL Immature Gran % 0.6 (0-4) % Seg Neutrophils % 76.0 % Lymphocytes % 13.0 % Monocytes % 8.9 % Eosinophils % 1.1 % Basophils % 0.4 % Neutrophils # 7.3 (1.6-8.9) K/mcL Lymphocytes # 1.3 (0.6-4.6) K/mcL Monocytes # 0.9 (0.0-1.3) K/mcL Eosinophils # 0.1 (0.0-0.6) K/mcL Basophils # 0.0 (0.0-0.2) K/mcL PT (9.4-12.1) Seconds INR APTT (26.0-36.0) Seconds Sodium (136-145) mEq/L Potassium (3.5-5.1) mEq/L Chloride (98-107) mEq/L Carbon Dioxide (23-29) mEq/L BUN (8-23) mg/dL Creatinine (0.60-1.20) mg/dL Est GFR ( Amer) (> 60) Est GFR (Non-Af Amer) (> 60) BUN/Creatinine Ratio (6-26) Glucose (70-105) mg/dL Calculated Osmolality (280-300) Calcium (8.6-10.3) mg/dL Total Bilirubin (0.3-1.0) mg/dL AST (13-39) Units/L ALT (7-52) Units/L Alkaline Phosphatase (34-104) Units/L Troponin I 0.08 H* (< 0.04) ng/mL B-Natriuretic Peptide 1489 H (Less than 100) pg/mL Serum Total Protein (6.4-8.9) g/dL Albumin (3.5-5.7) g/dL Globulin (2.4-3.5) g/dL Albumin/Globulin Ratio (1.1-2.2) Lipase (11-82) Units/L TSH (0.340-5.600) mcIU/mL Urine Color (Yellow) Urine Clarity (Clear) Urine pH (5.0-8.0) pH Units Ur Specific [place] (1.010-1.025) Urine Protein (Neg-Trace) mg/dL Urine Glucose (UA) (Normal) mg/dL Urine Ketones (Negative) mg/dL Urine Blood (Negative) Urine Nitrite (Negative) Urine Bilirubin (Negative) Urine Urobilinogen (Normal) mg/dL Ur Leukocyte Esterase (Negative) Urine Microscopic WBC (0-3) per hpf Ur Squamous Epith Cells (None-Few) per lpf Ur Transition Epith Cell (None-Few) per hpf Ur Renal Epithelial Cell (None-Few) per hpf Urine Bacteria (None-Few) per hpf Hyaline Casts (None-Few) per lpf Ur Culture Indicated? (NO) 09/18/17 09/18/17 09/18/17 Range/Units 13:11 13:31 17:21 WBC (4.3-11.1) K/mcL RBC (3.82-4.97) M/mcL Hgb (11.5-15.4) g/dL Hct (35.3-44.9) % MCV (83.0-100.0) fL MCH (28.0-33.3) pg MCHC (31.6-35.5) g/dL RDW (11.5-14.5) % Plt Count (140-400) K/mcL MPV (9.4-12.4) fL Immature Gran % (0-4) % Seg Neutrophils % % Lymphocytes % % Monocytes % % Eosinophils % % Basophils % % Neutrophils # (1.6-8.9) K/mcL Lymphocytes # (0.6-4.6) K/mcL Monocytes # (0.0-1.3) K/mcL Eosinophils # (0.0-0.6) K/mcL Basophils # (0.0-0.2) K/mcL PT 18.8 H (9.4-12.1) Seconds INR 1.7 APTT 28.3 (26.0-36.0) Seconds Sodium 135 L (136-145) mEq/L Potassium 4.8 (3.5-5.1) mEq/L Chloride 100 (98-107) mEq/L Carbon Dioxide 20 L (23-29) mEq/L BUN 64 H (8-23) mg/dL Creatinine 2.59 H (0.60-1.20) mg/dL Est GFR ( Amer) 22 L (> 60) Est GFR (Non-Af Amer) 18 L (> 60) BUN/Creatinine Ratio 25 (6-26) Glucose 178 H (70-105) mg/dL Calculated Osmolality 303 H (280-300) Calcium 9.2 (8.6-10.3) mg/dL Total Bilirubin 1.4 H (0.3-1.0) mg/dL AST 134 H (13-39) Units/L ALT 190 H (7-52) Units/L Alkaline Phosphatase 89 (34-104) Units/L Troponin I (< 0.04) ng/mL B-Natriuretic Peptide (Less than 100) pg/mL Serum Total Protein 7.0 (6.4-8.9) g/dL Albumin 3.6 (3.5-5.7) g/dL Globulin 3.4 (2.4-3.5) g/dL Albumin/Globulin Ratio 1.1 (1.1-2.2) Lipase 37 (11-82) Units/L TSH 8.262 H (0.340-5.600) mcIU/mL Urine Color Dark Yellow (Yellow) Urine Clarity Clear (Clear) Urine pH 5.5 (5.0-8.0) pH Units Ur Specific [place] 1.020 (1.010-1.025) Urine Protein 100 H (Neg-Trace) mg/dL Urine Glucose (UA) Normal (Normal) mg/dL Urine Ketones Trace H (Negative) mg/dL Urine Blood Negative (Negative) Urine Nitrite Negative (Negative) Urine Bilirubin Small H (Negative) Urine Urobilinogen Normal (Normal) mg/dL Ur Leukocyte Esterase Moderate H (Negative) Urine Microscopic WBC 15-30 H (0-3) per hpf Ur Squamous Epith Cells Many H (None-Few) per lpf Ur Transition Epith Cell Few (None-Few) per hpf Ur Renal Epithelial Cell Few (None-Few) per hpf Urine Bacteria Few (None-Few) per hpf Hyaline Casts Few (None-Few) per lpf Ur Culture Indicated? NO (NO) Attestation Statement - Attestation Attestation: I examined this patient and my medical decision-making was reviewed with the Resident Physician. I agree with the documented findings, disposition and treatment plan as described except to the extent set forth below. Findings consistent with hallucinations and altered mental status. The patient is actually alert and oriented at this time. There is A. fib with RVR. There was previous and STEMI. Discussed case with hospitalist given concern for decompensated heart failure and ongoing tachycardia with hypotension. Recommend initiation of amiodarone. Discussed case with hospitalist team. I think greater than 35 minutes of critical care time resuscitating this acutely ill patient suffering from A. fib with RVR requiring amiodarone infusion. This is excluding billable procedures.
[2017-09-18 13:21] LABS: Basophils % 0.4 %; Eosinophils # 0.1 K/mcL (0.0-0.6); Eosinophils % 1.1 %; Hematocrit 31.1 % (35.3-44.9); Hemoglobin 9.2 g/dL (11.5-15.4); Immature Granulocytes % 0.6 % (0-4); Lymphocytes # 1.3 K/mcL (0.6-4.6); Mean Corpuscular HGB Conc 29.6 g/dL (31.6-35.5); Mean Corpuscular Hemoglobin 27.2 pg (28.0-33.3); Mean Platelet Volume 11.2 fL (9.4-12.4); Monocytes # 0.9 K/mcL (0.0-1.3); Monocytes % 8.9 %; Neutrophils # 7.3 K/mcL (1.6-8.9); Platelet Count 232 K/mcL (140-400); Red Blood Count 3.38 M/mcL (3.82-4.97); Red Cell Distribution Width 17.7 % (11.5-14.5)
[2017-09-18 13:39] LABS: Bilirubin,Urine Small (Negative); Blood,Urine Negative (Negative); Clarity,Urine Clear (Clear); Glucose,Urine (UA) Normal (Normal); Ketones,Urine Trace mg/dL (Negative); Leukocyte Esterase,Urine Moderate (Negative); Nitrite,Urine Negative (Negative); PH,Urine 5.5 pH Units (5.0-8.0); Protein,Urine 100 mg/dL (Neg-Trace); Urobilinogen,Urine Normal (Normal)
[2017-09-18 13:46] LABS: Color,Urine Dark Yellow (Yellow)
[2017-09-18 14:02] LABS: Bacteria,Urine Few per hpf (None-Few); Hyaline Casts,Urine Few per lpf (None-Few); Renal Epithelial Cells,Urine Few per hpf (None-Few); Squamous Epithelial Cell,Urine Many per lpf (None-Few); Transitional Epi Cells,Urine Few per hpf (None-Few); WBC,Urine 15-30 per hpf (0-3)
[2017-09-18] MEDS ORDERED: dilTIAZem HCl 100 MG in D5% in Water 50 ML IVC SCH (14:15)
[2017-09-18 14:39] LABS: Thyroid Stimulating Hormone 8.262 mcIU/mL (0.340-5.600)
[2017-09-18 14:43] LABS: Albumin 3.6 g/dL (3.5-5.7); Albumin/Globulin Ratio 1.1 (1.1-2.2); Bilirubin,Total 1.4 mg/dL (0.3-1.0); Calcium 9.2 mg/dL (8.6-10.3); Globulin 3.4 g/dL (2.4-3.5); Potassium 4.8 mEq/L (3.5-5.1)
[2017-09-18] MEDS ORDERED: Furosemide 40 MG/4 ML VIAL IVP ONE (15:55)
[2017-09-18] MEDS ORDERED: *HR* Heparin 5,000 UNIT/ML VIAL IVP ONE (16:28)
[2017-09-18] MEDS ORDERED: *HR* Heparin 5,000 UNIT/ML VIAL IVP PRN ×2 (16:28)
[2017-09-18] MEDS ORDERED: Amiodarone Premix 360 MG/200 ML BAG IVC ONE ×2 (16:31→23:03)
[2017-09-18] MEDS ORDERED: Ondansetron 4 MG/2 ML VIAL IVP PRN (17:20)
[2017-09-18] MEDS ORDERED: Naloxone 0.4 MG/ML INJ IVP PRN (17:20)
[2017-09-18] MEDS ORDERED: traMADol 50 MG TABLET PO PRN (17:33)
[2017-09-18] MEDS ORDERED: *HR* LORazepam 0.5 MG TABLET PO PRN (17:33)
[2017-09-18 17:35] LABS: INR 1.7; Prothrombin Time 18.8 Seconds (9.4-12.1)
[2017-09-18 17:38] LABS: Activated Partial Thrombo Time 28.3 Seconds (26.0-36.0)
[2017-09-18] MEDS: Heparin 25,000 UNIT/500 ML D5W 25,000 UNIT/500 ML BAG IVC SCH (18:00)
--- NOTE | 2017-09-18 18:04 | Internal Med History&Physical ---
Date of Encounter: 09/18/17 Time of Encounter: 16:30 Assessment and Plan (1) Acute systolic (congestive) heart failure Current visit: Yes Status: Acute Acute exacerbation of CHF. Pt. reports increase in weight recently as well as bilateral pedal edema. Hx of systolic CHF. Pt. reports increase in SOB/dyspnea/ orthopnea in past 2 days. Will hold pts. PO lasix and administer 20 mg IVP lasix BID d/t current renal function. Continuous cardiac telemetry. Echo in July 2017 showed EF of 20-25%. Cardiology consult placed in ED. Patient currently on heparin and amiodarone drips per cardiology. Hold amlodipine if pts. SBP <110. Hold Cozaar and Zocor d/t current renal function. Cardiac/ADA diet w/1.2L daily fluid restriction. Monitor I&O and daily weight. Supplemental O2 w/titration and SpO2 monitoring. DuoNebs Q6 PRN. Will add BiPap if needed. Pt. discussed w/Dr. who agrees w/plan of care. Pt. is at high risk for cardiac and/or respiratory distress d/t current sx, elevated troponin, acute exacerbation of CHF, hx, and risk factors. Inpatient. (2) New onset a-fib Current visit: Yes Status: Acute Acute onset of atrial fibrillation according to pt. Denies previous hx. Cardiology consulted in ED and pt. placed on Cardizem drip. Cardizem discontinued d/t hypotension and amiodarone drip started in ED. Heparin drip started d/t new Afib and elevated troponin. Repeat EKG. Continuous cardiac telemetry. (3) Weakness of both lower extremities Current visit: Yes Status: Acute Acute weakness in bilateral LEs and difficulty w/ambulation. Falls/safety precautions. PT/OT consults ordered to assess patient for ambulation safety, strength, and stability for possible rehab needs. (4) HTN (hypertension) Current visit: Yes Status: Chronic Hx of chronic HTN. Monitor pt. and VS. Pt. placed on amiodarone drip d/t current HR/BP. Will continue pts. Hold Amlodipine if pts. SBP <110 and hold Cozaar d/t current renal function. Qualifiers: Hypertension type: essential hypertension Qualified Code(s): I10 - Essential (primary) hypertension (5) HLD (hyperlipidemia) Current visit: Yes Status: Chronic Hx of chronic HLD. Lipid panel in a.m. labs. Hold pts. Simvastatin d/t current renal function. Qualifiers: Hyperlipidemia type: pure hypercholesterolemia Qualified Code(s): E78.00 - Pure hypercholesterolemia, unspecified; E78.0 - Pure hypercholesterolemia (6) Anemia Current visit: Yes Status: Chronic Hx of chronic anemia. Pt. denies unusual bleeding. Current Hgb 9.2 and Hct 31.1 which is at or slightly higher than pts. recent baseline. Monitor H/H in a.m. labs and monitor pt. for signs of bleeding. Qualifiers: Anemia type: unspecified type Qualified Code(s): D64.9 - Anemia, unspecified (7) Anxiety Current visit: Yes Status: Chronic Hx of chronic anxiety. Will continue pts. Zoloft and Ativan. (8) CKD (chronic kidney disease) stage 3, GFR 30-59 ml/min Current visit: Yes Status: Chronic Hx of CKD with current GFR of 18 and creatinine of 2.59 on admission. JANENE superimposed on CKD. Will use IV fluids judiciously for current CKD as well as current CHF exacerbation. Will avoid nephrotoxins. Monitor I&O and daily weight. 1.2L daily fluid restriction. Monitor f/u labs. Retroperitoneal US Limited ordered. Nephrology consult ordered and discussed w/Dr. Temple who will see the pt. and I appreciate the consult. (9) Diabetes mellitus type 2 in obese Current visit: Yes Status: Chronic Hx of chronic diabetes controlled w/oral anti-hyperglycemic medications. Hold oral DM meds and administer low-dose correction sliding scale insulin w/ hypoglycemic protocol. BG checks ACHS. A1c in a.m. labs. (10) Cervical cancer Current visit: Yes Status: Resolved Hx of cervical cancer that resulted in total hysterectomy. Resolved. Qualifiers: Malignant neoplasm of cervix location: unspecified location Qualified Code( s): C53.9 - Malignant neoplasm of cervix uteri, unspecified (11) DVT prophylaxis Current visit: Yes Status: Acute Anti-embolic stockings for pts. bilateral LEs. Pt. also placed on heparin drip d /t elevated troponin. Monitor pt. for signs of bleeding. Internal Medicine - H&P: HPI Chief complaint: SOB/Dyspnea Admitted From: Emergency Dept Plans for Post Hospital Care: Home History of present illness: Ms. John is a 71 year old female with medical hx of arthritis, previous cervical cancer that resulted in complete hysterectomy, diabetes controlled with oral antihyperglycemic medications, HTN and HLD reports from the ED with chief complaint of shortness of breath and dyspnea. Patient states she is chronically short of breath but became more dyspneic and orthopneic over the past 24 hours. Patient reports she is normally 2 L O2 at home but had to use 3 L yesterday and today. She reports being constipated and nauseous for the past several days but had 3 bouts of diarrhea today. Pt. also reports auditory and visual hallucinations several times today for the first time. Pt. reports bilateral leg weakness but denies recent illness, fever, chills, vomiting, headache, cough, changes in vision, chest pain, palpitations, abdominal pain, constipation, numbness, tingling, dizziness, lightheadedness, pre-syncope, or syncope. Past Med Surg Social Fam HX - Past Medical History Source: patient, old records reviewed Medical history: arthritis, cancer (Cervical w/total hysterectomy), diabetes, hyperlipidemia, hypertension Psychiatric history: anxiety - Past Surgical History Surgical History: appendectomy, cholecystectomy, hysterectomy - Social History Smoking Status: Former smoker Packs per day: 1PPWeek - Reports quitting 40 years ago Alcohol use: none Drug use: none Current living situation: Home Activity Level: Uses cane/walker Recent Out of Country Travel Within the Last 8 Weeks: No Exposure or Possible Exposure to Illness During Travel: No - Family History Son Race: Family Member Ethnicity: Non- Living Status: Cause of : Lymphoma Hx Family Cancer: Yes (Lymphoma) Father Race: Family Member Ethnicity: Non- Living Status: Age at : 55 Cause of : [place] Hx Family Cardiac Disorders: Yes ([place], CAD, HTN, HLD) Mother Race: Family Member Ethnicity: Non- Living Status: Age at : 57 Cause of : CAD Hx Family Cardiac Disorders: Yes (CAD, HTN, HLD) Brother Race: Family Member Ethnicity: Non- Living Status: Age at : 42 Cause of : Throat cancer Hx Family Cancer: Yes (Throat) Sister Race: Family Member Ethnicity: Non- Living Status: Age at : 62 Cause of : [place] Hx Family Cardiac Disorders: Yes ([place], HTN, HLD) Internal Medicine - H&P: Meds Amlodipine Besylate 10 mg PO DAILY 08/08/17 [History] Cyclobenzaprine [Flexeril] 10 mg PO TID 08/08/17 [History] Gabapentin [Neurontin] 300 mg PO HS 08/08/17 [History] Losartan Potassium [Cozaar] 100 mg PO DAILY 08/08/17 [History] Polyethylene Glycol 3350 [MiraLAX Powder Bulk 17.9 Oz] 1 scoop PO DAILY [History] Sertraline [Zoloft] 50 mg PO DAILY 08/08/17 [History] Simvastatin [Zocor] 40 mg PO HS 08/08/17 [History] Tramadol HCl [Ultram] 50 mg PO QID PRN 08/08/17 [History] Aspirin [Lo-Dose Aspirin EC] 81 mg PO DAILY 30 Days #30 tablet. 08/13/17 [Rx] Oxygen 2 l .ROUTE AD 30 Days #1 each 08/13/17 [Rx] LORazepam [Ativan] 0.5 mg PO BID PRN 09/18/17 [History] Nystatin OINT [Mycostatin] 1 appl TP BID 09/18/17 [History] 3 Allergy/AdvReac Type Severity Reaction Status Date / Time codeine Allergy Rash Verified 09/18/17 12:40 All Systems PM: A 10-system review of systems was performed and is negative for pertinent findings except as documented above in the HPI. - Constitutional Constitutional: as per HPI, weakness (Bilateral legs), no chills, no fever(s), no night sweats - EENT Eyes: no change in vision, no discharge, no pain, no photophobia Ears: no ear discharge, no ear pain, no tinnitus Nose, mouth and throat: no dysphagia, no nasal discharge, no neck pain, no sore throat - Breasts Breasts: as per HPI - Cardiovascular Cardiovascular ROS IM: as per HPI, dyspnea, dyspnea on exertion, edema (2+ bilateral pedal edema of LEs), orthopnea, no chest pain, no diaphoresis, no lightheadedness, no palpitations, no syncope - Respiratory Respiratory: as per HPI, dyspnea, dyspnea on exertion, wheezing - Gastrointestinal Gastrointestinal: as per HPI, diarrhea, nausea, no abdominal pain, no hematemesis, no hematochezia, no melena, no vomiting - Genitourinary Genitourinary: no change in urinary stream, no dysuria, no flank pain, no hematuria Menstruation: as per HPI, post hysterectomy - Musculoskeletal Musculoskeletal ROS IM: no numbness, no tingling - Integumentary Integumentary IM: no rash, no unusual bruising - Neurological Neurological ROS: as per HPI, weakness (Bilateral LEs), no confusion, no convulsions, no focal weakness, no numbness, no tingling, no tremor(s) - Psychiatric Psychiatric: as per HPI, anxiety, auditory hallucinations, visual hallucinations - Endocrine Endocrine IM: as per HPI - Hematologic/Lymphatic Hematologic/Lymphatic: no easy bruising - Allergic/Immunologic Allergic/Immunologic: as per HPI - Constitutional Vitals: Temp Pulse Resp BP Pulse Ox 0 F L 114 0 0/0 98 09/18/17 17:49 09/18/17 17:05 09/18/17 17:49 09/18/17 17:49 09/18/17 17:05 General appearance: Present: cooperative, mild distress (Respiratory), A&O X 3, morbidly obese, pleasant, answers questions appropriately - Head Head exam: Present: atraumatic, normal inspection, normocephalic - Eye Eye exam: Present: PERRL, conjuntiva pink, sclera anicteric Pupils: Present: PERRL - ENT ENT exam: Present: normal exam, normal external ear exam - Neck Neck exam general surgery: Present: normal inspection, supple, trachea midline. Absent: lymphadenopathy - Respiratory Respiratory exam: Present: accessory muscle use, decreased breath sounds. Absent: rales, rhonchi, wheezes - Cardiovascular Cardiovascular exam: Present: irregular rhythm - GI/Abdominal GI/Abdominal exam: Present: normal bowel sounds, soft, no peritoneal signs. Absent: distended, tenderness - Rectal Rectal exam: Present: deferred - Additional comments: exam deferred. - Extremities Exam Extremities exam: Present: pedal edema (2+ pitting bilaterally in LEs), warm, radial pulses palpable and symmetrical. Absent: calf tenderness, cyanotic - Back Exam Back exam: Present: normal inspection - Neurological Exam Neurological exam: Present: CN II-XII intact, oriented X3, no focal deficits. Absent: pronater drift, facial droop, speech deficit - Psychiatric Psychiatric exam: Present: normal affect, normal mood - Skin Skin exam: Present: dry, intact Internal Med - H&P Results - Labs CBC & Chem 7: 09/18/17 13:11 09/18/17 13:11 - EKG Data Prior EKG available for review: yes When compared to previous EKG: there are significant changes Interpretation IM: suggestive of ischemia EKG comments: 09/18/17 18:15 EKG dated 08/09/17 shows sinus rhythm with low QRS voltage in precordial leads and probable anterior myocardial infarction of indeterminate age. EKG dated 09/18/17 shows atrial fibrillation with rapid ventricular response, low QRS voltage in precordial leads, and anterior myocardial infarction ( probably old). - Diagnostic Studies Chest x-ray Additional comments: Impressions Chest X-Ray 09/18/17 12:57 IMPRESSION: Mild increased pulmonary edema and bilateral pleural effusions since prior examination. D/ / Joan Andino MD / Joan Andino MD Interpreting Provider: Joan Andino MD
[2017-09-18] MEDS ORDERED: Dextrose Gel 15 GM PO PRN ×2 (18:34)
[2017-09-18] MEDS ORDERED: *HR* Dextrose 50 % in Water (Syg) 50 ML SYRINGE IVP PRN (18:34)
[2017-09-18] MEDS ORDERED: D5% in Water 1,000 ML IVC PRN (18:34)
--- NOTE | 2017-09-18 18:41 | Electrocardiograph Report ---
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
[2017-09-18] MEDS: Gabapentin 300 MG CAPSULE PO SCH (20:35)
[2017-09-18] MEDS: Insulin LISPRO 300 UNITS/3 ML VIAL SQ SCH (20:36)
[2017-09-18] MEDS: Nystatin OINT 15 GM TUBE TP SCH (20:36)
[2017-09-18] MEDS: Amiodarone Premix 360 MG/200 ML BAG IVC SCH (23:10)
[2017-09-19 00:46] LABS: Basophils % 0.4 %; Eosinophils # 0.1 K/mcL (0.0-0.6); Eosinophils % 0.9 %; Hematocrit 28.2 % (35.3-44.9); Hemoglobin 8.4 g/dL (11.5-15.4); Immature Granulocytes % 0.5 % (0-4); Immature Platelets 3.5 % (1.1-6.1); Lymphocytes # 1.6 K/mcL (0.6-4.6); Mean Corpuscular HGB Conc 29.8 g/dL (31.6-35.5); Mean Corpuscular Hemoglobin 27.3 pg (28.0-33.3); Mean Corpuscular Volume 91.6 fL (83.0-100.0); Mean Platelet Volume 11.3 fL (9.4-12.4); Monocytes % 10.4 %; Neutrophils # 6.8 K/mcL (1.6-8.9); Platelet Count 207 K/mcL (140-400); Red Blood Count 3.08 M/mcL (3.82-4.97); Red Cell Distribution Width 17.7 % (11.5-14.5); Segmented Neutrophils % 70.8 %
[2017-09-19 01:02] LABS: Hemoglobin A1C 5.6 %
[2017-09-19 01:07] LABS: Albumin 3.1 g/dL (3.5-5.7); Albumin/Globulin Ratio 1.1 (1.1-2.2); Bilirubin,Direct 0.5 mg/dL (0.0-0.2); Bilirubin,Indirect 0.5 mg/dL (0.0-1.2); Globulin 2.9 g/dL (2.4-3.5)
[2017-09-19 01:09] LABS: Albumin 3.1 g/dL (3.5-5.7); Albumin/Globulin Ratio 1.1 (1.1-2.2); Calcium 8.4 mg/dL (8.6-10.3); Chol/HDL Ratio 3.7 (0-4.9); Globulin 2.9 g/dL (2.4-3.5); Magnesium 2.2 mg/dL (1.6-2.6); Potassium 4.4 mEq/L (3.5-5.1)
[2017-09-19] MEDS: Aspirin Enteric Coated 81 MG Tablet PO SCH (08:01)
[2017-09-19] MEDS: Insulin LISPRO 300 UNITS/3 ML VIAL SQ SCH ×4 (08:01→20:51)
[2017-09-19] MEDS: Heparin 25,000 UNIT/500 ML D5W 25,000 UNIT/500 ML BAG IVC SCH (09:49)
[2017-09-19] MEDS: Amiodarone Premix 360 MG/200 ML BAG IVC SCH (09:56)
--- NOTE | 2017-09-19 11:43 | Cardiology Consult Note ---
<ElmiraCarmelo doll R - Last Filed: 09/19/17 13:57> Date of Encounter: 09/19/17 Time of Encounter: 11:40 Assessment and Plan (1) CHF exacerbation Current Visit: Yes Status: Acute Echo 08/08/17 LVEF 20-25%, Severe segmental left ventricular systolic dysfunction. New diagnosis at that time. Pt returns with worsening dyspnea, BNP 1489 and CXR with worsening pleural effusions/congestion. JANENE on CKD stage 3 with creatinine 2.77. Diuresis not started given renal dysfunction. Nephrology following. Appreciate their input and management as well. Recommend Strict I/Os, Na and fluid restriction, daily weights. Pt not interested in ischemic evaluation or any further invasive testing. Aware of risks and potential . Consult palliative care to discuss goals and code status. Cardiology is signing off since pt declines further cardiac work-up. Please reconsult if pt changes her mind or if further assistance is needed. Qualifiers: Congestive heart failure type: systolic Qualified Code(s): I50.23 - Acute on chronic systolic (congestive) heart failure (2) Elevated troponin Current Visit: Yes Status: Acute 0.08, 0.08, 0.07 in setting of A-Fib RVR, CHF exacerbation and JANENE. Suspect demand ischemia, nondiagnostic for ACS. However, hospitalization 07/2017 pt had NSTEMI with peak troponin 6.14. Declined ischemic eval at that time, was scheduled for outpt [facility], but now declines again, stating she will not want to have it in the future because she has "been through too much already". Known EF 20-25%. LFTs previously normal are now elevated. Will not start statin. No BB due to hypotension. Continue ASA. On heparin gtt as well. Will stop given her anemia and plan for PRBCs per nephrology. (3) Acute kidney injury Current Visit: Yes Status: Acute Creatinine 2.77. Management per nephrology. (4) New onset a-fib Current Visit: Yes Status: Acute New diagnosis of A-Fib. Due to hypotension, was started on amio gtt on admission. On amio gtt currently with HR low 100s at bedside. Transition to PO Amiodarone 200mg BID. Plan to reduce to 200mg daily after 1 month. On heparin gtt currently. Will stop given anemia. EF 20-25%, no significant valve dysfunction. [id number] is 7 (Age, Female, HTN, DM, CHF, Presumed CAD). However, pt is anemic with HGB in 8s. Unlikely she is candidate for chronic anticoagulation. Recommend ASA only. Discussion w patient/family: The assessment and plan as outlined above was discussed with the patient and/or family members who expressed understanding and agreement. All questions were answered. Thank you for involving us in the care of your patient. Please call with any questions. I will discuss all the above with Dr. Mccord and make changes as necessary. History of Present Illness Consult date: 09/19/17 Requesting physician: Ant Jones Consult reason: CHF, elevated troponin Chief complaint: dyspnea History of present illness: Ms. John is a 71 year old female with PMH of arthritis, previous cervical cancer that resulted in complete hysterectomy, diabetes controlled with oral antihyperglycemic medications, HTN, HLD, CKD stage 3, and recent NSTEMI and diagnosis of CHF EF 20-25% 07/2017. She reports from the ED with chief complaint of shortness of breath and dyspnea. Patient states she is chronically short of breath but became more dyspneic and orthopneic over the past 24 hours. Patient reports she is normally 2 L O2 at home but had to use 3 L. She denies chest pain. During previous hospitalization her troponin peaked at 6.14 and she declined LHC. She followed-up with Dr. العراقي as outpt and was scheduled for C 09/24/17. She now refuses again, statin she does not want anything else done. On admission, pt found to have JANENE--creatinine 2.77 and CHF exacerbation, BNP 1489, and new A-Fib RVR- started on amiodarone gtt. HR low 100s at bedside. Troponins 0.08, 0.08, 0.07. CXR Mild increased pulmonary edema and bilateral pleural effusions since prior examination. Past Med Surg Social Fam HX - Past Medical History Medical history: arthritis, cancer (Cervical w/total hysterectomy), cardiomyopathy, CHF, diabetes, hyperlipidemia, hypertension Psychiatric history: anxiety - Past Surgical History Surgical History: appendectomy, cholecystectomy, hysterectomy - Social History Smoking Status: Former smoker Packs per day: 1PPWeek - Reports quitting 40 years ago Alcohol use: none Drug use: none - Family History Son Race: Family Member Ethnicity: Non- Living Status: Cause of : Lymphoma Hx Family Cancer: Yes (Lymphoma) Father Race: Family Member Ethnicity: Non- Living Status: Age at : 55 Cause of : CO Hx Family Cardiac Disorders: Yes (CO, CAD, HTN, HLD) Mother Race: Family Member Ethnicity: Non- Living Status: Age at : 57 Cause of : CAD Hx Family Cardiac Disorders: Yes (CAD, HTN, HLD) Brother Race: Family Member Ethnicity: Non- Living Status: Age at : 42 Cause of : Throat cancer Hx Family Cancer: Yes (Throat) Sister Race: Family Member Ethnicity: Non- Living Status: Age at : 62 Cause of : CO Hx Family Cardiac Disorders: Yes (CO, HTN, HLD) Medications and Allergies Amlodipine Besylate 10 mg PO DAILY 08/08/17 [History] Cyclobenzaprine [Flexeril] 10 mg PO TID 08/08/17 [History] Gabapentin [Neurontin] 300 mg PO HS 08/08/17 [History] Losartan Potassium [Cozaar] 100 mg PO DAILY 08/08/17 [History] Polyethylene Glycol 3350 [MiraLAX Powder Bulk 17.9 Oz] 1 scoop PO DAILY [History] Sertraline [Zoloft] 50 mg PO DAILY 08/08/17 [History] Simvastatin [Zocor] 40 mg PO HS 08/08/17 [History] Tramadol HCl [Ultram] 50 mg PO QID PRN 08/08/17 [History] Aspirin [Lo-Dose Aspirin EC] 81 mg PO DAILY 30 Days #30 tablet.dr 08/13/17 [Rx] Oxygen 2 l .ROUTE AD 30 Days #1 each 08/13/17 [Rx] LORazepam [Ativan] 0.5 mg PO BID PRN 09/18/17 [History] Nystatin OINT [Mycostatin] 1 appl TP BID 09/18/17 [History] Morphine Oral CONC [Roxanol] 0.25 ml PO Q4H PRN #30 ml 09/19/17 [Rx] 3 Allergy/AdvReac Type Severity Reaction Status Date / Time codeine Allergy Rash Verified 09/18/17 12:40 All Systems Review: A 10-system review of systems was performed and is negative for pertinent findings except as documented above in the HPI. - Cardiovascular Cardiovascular: as per HPI, dyspnea at rest, dyspnea on exertion, orthopnea - Respiratory Respiratory: dyspnea Physical Examination Vital Signs, Last 4 Hours Pulse BP Pulse Ox 09/19/17 10:00 104 104/70 09/19/17 09:00 101 104/67 09/19/17 08:14 96 97/67 94 Vital Signs Temp Pulse Resp BP Pulse Ox 09/19/17 10:00 104 104/70 09/19/17 09:00 101 104/67 09/19/17 08:14 96 97/67 94 09/19/17 07:22 91 94/69 09/19/17 07:18 98.4 F 102 19 97/67 93 09/19/17 04:34 98.1 F 101 18 106/58 92 09/19/17 03:30 103 09/19/17 00:14 98.3 F 107 18 86/58 91 09/18/17 23:45 111 09/18/17 20:45 111 09/18/17 19:24 98.7 F 120 17 103/53 75 09/18/17 17:49 0 F L 0 0/0 09/18/17 17:45 97.8 F 116 16 135/73 97 09/18/17 17:05 114 20 102/72 98 09/18/17 16:32 114 20 98/50 92 09/18/17 16:01 98 F 24 98/74 09/18/17 15:49 112 24 108/51 90 09/18/17 12:40 98.2 F 121 22 107/70 96 Intake and Output 09/18/17 09/19/17 09/19/17 23:59 07:59 15:59 Intake Total 242.5 / 242.5 338 / 338 162 / 162 Output Total 0 / 0 0 / 0 Balance 242.5 / 242.5 338 / 338 162 / 162 Intake: IV Fluids 2.5 / 2.5 338 / 338 162 / 162 Heparin 25,000 UNIT/500 ML D5W 338 / 338 162 / 162 25,000 unit In 500 ml @ 14 UNIT /KG/HR 36.197 mls/hr IVC . [id number] [facility] Rx#:[id number] Cardizem 100 MG In Dextrose 5% 2.5 / 2.5 (ADD-Lamar) 50 ML @ 5 MG/HR 2 .5 mls/hr IVC .Q20H QUIN Rx#: [id number] Oral 240 / 240 0 / 0 Output: Urine 0 / 0 0 / 0 Other: Meal Dinner Breakfast Percent of Meal Consumed 100% 70% Stool Size Small Stool Consistency formed Stool Color Brown # Voids 1 # Bowel Movements 1 Weight 130.1 kg Blood Glucose* 168 161 Patient Weight 09/19/17 23:59 Weight 130.1 kg General: Conversant, No Apparent Distress HEENT: Atraumatic, Normocephaly, Mucus Membranes Moist Neck: Normal carotid pulses Cardiac: Other (irregularly irregular) Lungs: Other (diminished) Neuro: Alert and responsive, No focal deficits noted Abdomen: Soft, Non-Tender Skin: No rashes noted on visualized skin Musculoskeletal: No Chest Wall Tenderness Extremities: No Clubbing, No Cyanosis, No Edema, Normal Pulses Results 09/19/17 00:29 09/19/17 00:29 Lab Results 09/18/17 09/19/17 09/19/17 19:48 00:29 00:29 WBC 9.6 Hgb 8.4 L Hct 28.2 L Plt Count 207 APTT Sodium Potassium Chloride Carbon Dioxide BUN Creatinine Glucose Calcium Magnesium Total Bilirubin AST ALT Alkaline Phosphatase Troponin I 0.08 H* 0.07 H* 09/19/17 09/19/17 09/19/17 00:29 00:29 01:59 WBC Hgb Hct Plt Count APTT 105.2 H D Sodium 134 L Potassium 4.4 Chloride 102 Carbon Dioxide 22 L BUN 65 H Creatinine 2.77 H Glucose 190 H Calcium 8.4 L Magnesium 2.2 Total Bilirubin 1.0 1.0 AST 79 H 80 H ALT 146 H 146 H Alkaline Phosphatase 78 78 Troponin I 09/19/17 09:40 WBC Hgb Hct Plt Count APTT 56.0 H Sodium Potassium Chloride Carbon Dioxide BUN Creatinine Glucose Calcium Magnesium Total Bilirubin AST ALT Alkaline Phosphatase Troponin I Short CBC 09/19/17 09/18/17 Range/Units 00:29 13:11 WBC 9.6 9.6 (4.3-11.1) K/mcL Hgb 8.4 L 9.2 L (11.5-15.4) g/dL Hct 28.2 L 31.1 L (35.3-44.9) % Plt Count 207 232 (140-400) K/mcL Neutrophils # 6.8 7.3 (1.6-8.9) K/mcL BMP 09/19/17 09/18/17 Range/Units 00:29 13:11 Sodium 134 L 135 L (136-145) mEq/L Potassium 4.4 4.8 (3.5-5.1) mEq/L Chloride 102 100 (98-107) mEq/L Carbon Dioxide 22 L 20 L (23-29) mEq/L BUN 65 H 64 H (8-23) mg/dL Creatinine 2.77 H 2.59 H (0.60-1.20) mg/dL Glucose 190 H 178 H (70-105) mg/dL Calcium 8.4 L 9.2 (8.6-10.3) mg/dL Cardiac Enzymes 09/19/17 09/18/17 09/18/17 Range/Units 00:29 19:48 13:11 Troponin I 0.07 H* 0.08 H* 0.08 H* (< 0.04) ng/mL Liver Function 09/19/17 09/19/17 09/18/17 Range/Units 00:29 00:29 13:11 Total Bilirubin 1.0 1.0 1.4 H (0.3-1.0) mg/dL Direct Bilirubin 0.5 H (0.0-0.2) mg/dL AST 80 H 79 H 134 H (13-39) Units/L ALT 146 H 146 H 190 H (7-52) Units/L Alkaline Phosphatase 78 78 89 (34-104) Units/L Albumin 3.1 L 3.1 L 3.6 (3.5-5.7) g/dL Urine 09/18/17 Range/Units 13:31 Urine Color Dark Yellow (Yellow) Urine Clarity Clear (Clear) Urine pH 5.5 (5.0-8.0) pH Units Ur Specific [place] 1.020 (1.010-1.025) Urine Protein 100 H (Neg-Trace) mg/dL Urine Glucose (UA) Normal (Normal) mg/dL Impressions Chest X-Ray 09/18/17 12:57 IMPRESSION: Mild increased pulmonary edema and bilateral pleural effusions since prior examination. D/ / Joan Andino MD / Joan Andino MD Interpreting Provider: Joan Andino MD Retroperitoneum Ultrasound 09/18/17 19:55 IMPRESSION: Bilateral renal cortical thinning with bilateral renal cortical cysts. D/ / David Tao MD / David Tao MD Interpreting Provider: David Tao MD Active Medications Aspirin (Aspirin Ec) 81 mg PO DAILY QUIN Stop: 03/21/18 09:01 Last Admin: 09/19/17 08:01 Dose: 81 mg Cyclobenzaprine HCl (Flexeril) 10 mg PO TID QUIN Stop: 03/20/18 21:01 Last Admin: 09/19/17 08:01 Dose: 10 mg Dextrose/Water (Dextrose 50% (Syg)) 25 ml IVP AD PRN PRN Reason: Hypoglycemia Stop: 03/20/18 18:35 Gabapentin (Neurontin) 300 mg PO HS QUIN Stop: 03/20/18 21:01 Last Admin: 09/18/17 20:35 Dose: 300 mg Glucagon (Glucagen) 1 mg IM ONCE PRN PRN Reason: Hypoglycemia Stop: 03/20/18 18:35 Glucose (Gluctose) 15 gm PO ONCE PRN PRN Reason: Hypoglycemia Stop: 03/20/18 18:35 Glucose (Gluctose) 30 gm PO ONCE PRN PRN Reason: Hypoglycemia Stop: 03/20/18 18:35 Heparin Sodium (Porcine) (Heparin) 9,000 unit 70 unit/kg (9000 unit) IVP Q6HR PRN PRN Reason: SEE COMMENTS Stop: 03/20/18 16:29 Heparin Sodium (Porcine) (Heparin) 4,500 unit 35 unit/kg (4500 unit) IVP Q6H PRN PRN Reason: SEE COMMENTS Stop: 03/20/18 16:29 Heparin Sodium/Dextrose (Heparin 25,000 Unit/500 Ml D5w) 25,000 unit in 500 mls @ 36.197 mls/hr IVC .[id number] QUIN; 14 UNIT/KG/HR PRN Reason: Protocol Stop: 03/20/18 16:31 Last Admin: 09/19/17 09:49 Dose: 11.99 unit/kg/hr, 31 mls/hr Dextrose (Dextrose 5%) 1,000 mls @ 100 mls/hr IVC .Q10H PRN PRN Reason: HYPOGLYCEMIA Stop: 03/20/18 18:35 Amiodarone HCl/Dextrose (Amiodarone Drip Premix 360mg/200ml) 360 mg in 200 mls @ 16.667 mls/hr IVC CONT QUIN PRN Reason: 0.5 MG/MIN Stop: 03/20/18 23:01 Last Admin: 09/19/17 09:56 Dose: 0.5 mg/min, 16.7 mls/hr Insulin Human Lispro (Humalog) 0 units SQ TIDAC QUIN PRN Reason: Protocol Stop: 03/21/18 07:31 Last Admin: 09/19/17 08:01 Dose: 2 units Insulin Human Lispro (Humalog) 0 units SQ HS QUIN PRN Reason: Protocol Stop: 03/20/18 21:01 Last Admin: 09/18/17 20:36 Dose: Not Given Lorazepam (Ativan) 0.5 mg PO BID PRN PRN Reason: Anxiety Stop: 03/20/18 17:34 Naloxone HCl (Narcan) 0.4 mg IVP Q2MIN PRN PRN Reason: Opioid Reversal Stop: 03/20/18 17:21 Nystatin (Mycostatin) 1 appl TP BID [facility] Stop: 03/20/18 21:01 Last Admin: 09/18/17 20:36 Dose: 1 appl Ondansetron HCl (Zofran) 4 mg IVP Q8HR PRN PRN Reason: Nausea And Vomiting Stop: 03/20/18 17:21 Polyethylene Glycol (Miralax) 17 gm PO DAILY [facility] Stop: 03/21/18 09:01 Last Admin: 09/19/17 08:01 Dose: 17 gm Sertraline HCl (Zoloft) 50 mg PO DAILY QUIN Stop: 03/21/18 09:01 Last Admin: 09/19/17 08:01 Dose: 50 mg Tramadol HCl (Ultram) 50 mg PO QID PRN PRN Reason: Pain Stop: 03/20/18 17:34 - Imaging and Cardiology Echo: report reviewed - EKG Interpretation EKG results cardiology: personally reviewed (A-Fib RVR rate 126), other (12 hr tele AVG HR 106 A-Fib) Consult Discharge Plan - Plan Referrals: ADIN,CARDIOLOGY [Other] (OFFICE WILL CALL PATIENT AT HOME WITH FOLLOW UP APPOINTMENT) Augustin Eid DO [Primary Care Provider] - 09/30/17 9:30 am Prescriptions: Morphine Oral CONC [Roxanol] 0.25 ml PO Q4H PRN #30 ml PRN Reason: Dyspnea <Maria Alejandra Mccord - Last Filed: 09/19/17 16:50> Date of Encounter: 09/19/17 - Attending Attestation I examined this patient and my medical decision-making was reviewed with the ENVIRONMENTAL PROFESSIONAL. I agree with the documented findings, disposition and treatment plan as described. Ms. John was recently hospitalized with an NSTEMI, troponin of 6. Her echo returned with LV systolic function of 20-25%. She declined catheterization. She returns with worsening dyspnea and objective data consistent with acute systolic heart failure and worsening renal failure. Troponin elevation is flat and adynamic consistent with CHF and not acute coronary syndrome. Again discussed with the patient was a recommendation to proceed with cardiac catheterization. The risks, benefits and alternatives of the procedure were discussed with the patient in detail. She was alert and oriented at the time of this discussion. She expressed understanding. However, she continues to decline catheterization. She feels "she has been through too much." She expresses understanding of the risks of not proceeding which can include but not limited to , CO, dysrhythmia and worsening heart failure. Diuresis was held by primary team. We will defer to nephrology for recommendations. Recommend continuing aspirin. Statin is held secondary to previously abnormal LFTs. Beta billy also not started due to low blood pressures. Recommend consideration for palliative care to discuss goals and CODE STATUS. Cardiology will sign off at this time. Please call if we can provide further assistance. Assessment and Plan Discussion w patient/family: The assessment and plan as outlined above was discussed with the patient and/or family members who expressed understanding and agreement. All questions were answered. Thank you for involving us in the care of your patient. Please call with any questions. History of Present Illness History of present illness: Ms. John is a 71 year old female All Systems Review: A 10-system review of systems was performed and is negative for pertinent findings except as documented above in the HPI. Physical Examination Vital Signs, Last 4 Hours Temp Pulse Resp BP Pulse Ox 09/19/17 16:20 98.5 F 103 20 90/58 98 09/19/17 16:05 98.1 F 109 20 97/42 94 09/19/17 14:56 109 119/95 09/19/17 13:48 99 99/82 09/19/17 13:05 89/44 Results 09/19/17 00:29 09/19/17 00:29 Lab Results 09/18/17 09/19/17 09/19/17 19:48 00:29 00:29 WBC 9.6 Hgb 8.4 L Hct 28.2 L Plt Count 207 APTT Sodium Potassium Chloride Carbon Dioxide BUN Creatinine Glucose Calcium Magnesium Total Bilirubin AST ALT Alkaline Phosphatase Troponin I 0.08 H* 0.07 H* 09/19/17 09/19/17 09/19/17 00:29 00:29 01:59 WBC Hgb Hct Plt Count APTT 105.2 H D Sodium 134 L Potassium 4.4 Chloride 102 Carbon Dioxide 22 L BUN 65 H Creatinine 2.77 H Glucose 190 H Calcium 8.4 L Magnesium 2.2 Total Bilirubin 1.0 1.0 AST 79 H 80 H ALT 146 H 146 H Alkaline Phosphatase 78 78 Troponin I 09/19/17 09:40 WBC Hgb Hct Plt Count APTT 56.0 H Sodium Potassium Chloride Carbon Dioxide BUN Creatinine Glucose Calcium Magnesium Total Bilirubin AST ALT Alkaline Phosphatase Troponin I
[2017-09-19] MEDS: Nystatin OINT 15 GM TUBE TP SCH ×2 (11:48→21:24)
--- NOTE | 2017-09-19 12:56 | Consult Note ---
Date of Encounter: 09/19/17 Time of Encounter: 11:30 Assessment & Recommendation (1) Anxiety Current visit: Yes Status: Chronic Assessment & Recommendation: Patient denying current psychosis. She does not appear to be responding to internal stimuli. She is aware of her medical conditions and and understands that she is in the hospital to get help. The reported auditory and visual hallucinations may have been secondary to a mild delirium that is resolving on its own. We did attempt to contact patient's daughter and [phone]. Would recommend following up with family about patient's baseline and ability to care for self on discharge. At this time patient does not want any psychiatric intervention and is presently not having symptoms that would require treatment against her will. We will hold on making changes to psychiatric medications for now. Please call with questions. History of Present Illness Patient: new to practice Requesting Physician: Nash Johnson Reason for consult: Auditory hallucinations History of present illness: Ms. John is a 71 year old female with a history of anxiety who presented to the hospital reporting multiple medical issues including malaise, weakness, shortness of breath. She also reported auditory hallucinations. Patient was admitted for medical monitoring and treatment of her COPD and congestive heart failure. She reports several staff members that she was seeing and hearing things. She also reported she was having some difficulty sleeping. On interview patient was alert and oriented to self, place, date and time. She states that she went to the hospital brought by a friend because of her medical issues. Initially she did not want to talk about hearing things but then reported she was seeing double of some things and it scared her. She denied auditory hallucinations to this provider. She denies any history of psychosis but is treated for depression and anxiety. She does not feel depressed at present. She denies anxiety symptoms because her medications are helping her. She does report some sleep issues but states that she slept well last night. She reports that she lives alone but her daughter and [id number] check in on her. She gave this provider permission to call them. She denies suicidal or homicidal ideation, intent, or plan. No history of mark or psychosis. She is treated for anxiety by her outpatient doctor. CC: Nash Johnson Past Med Surg Social Fam HX - Past Medical History Medical history: arthritis, cancer (Cervical w/total hysterectomy), cardiomyopathy, CHF, diabetes, hyperlipidemia, hypertension - Past Psychiatric History Psychiatric history: Reports: anxiety, depression. Denies: prior suicide attempt, previous psychiatric hospitalization Family psychiatric history: No Family History of Suicide: None - Past Surgical History Surgical History: appendectomy, cholecystectomy, hysterectomy - Social History Smoking Status: Former smoker Alcohol use: none Drug use: none Occupational status: retired - Family History Son Race: Family Member Ethnicity: Non- Living Status: Cause of : Lymphoma Hx Family Cancer: Yes (Lymphoma) Father Race: Family Member Ethnicity: Non- Living Status: Age at : 55 Cause of : [place] Hx Family Cardiac Disorders: Yes ([place], CAD, HTN, HLD) Mother Race: Family Member Ethnicity: Non- Living Status: Age at : 57 Cause of : CAD Hx Family Cardiac Disorders: Yes (CAD, HTN, HLD) Brother Race: Family Member Ethnicity: Non- Living Status: Age at : 42 Cause of : Throat cancer Hx Family Cancer: Yes (Throat) Sister Race: Family Member Ethnicity: Non- Living Status: Age at : 62 Cause of : [place] Hx Family Cardiac Disorders: Yes ([place], HTN, HLD) Medications & Allergies Amlodipine Besylate 10 mg PO DAILY 08/08/17 [History] Cyclobenzaprine [Flexeril] 10 mg PO TID 08/08/17 [History] Gabapentin [Neurontin] 300 mg PO HS 08/08/17 [History] Losartan Potassium [Cozaar] 100 mg PO DAILY 08/08/17 [History] Polyethylene Glycol 3350 [MiraLAX Powder Bulk 17.9 Oz] 1 scoop PO DAILY [History] Sertraline [Zoloft] 50 mg PO DAILY 08/08/17 [History] Simvastatin [Zocor] 40 mg PO HS 08/08/17 [History] Tramadol HCl [Ultram] 50 mg PO QID PRN 08/08/17 [History] Aspirin [Lo-Dose Aspirin EC] 81 mg PO DAILY 30 Days #30 tablet.dr 08/13/17 [Rx] Oxygen 2 l .ROUTE AD 30 Days #1 each 08/13/17 [Rx] LORazepam [Ativan] 0.5 mg PO BID PRN 09/18/17 [History] Nystatin OINT [Mycostatin] 1 appl TP BID 09/18/17 [History] 3 Allergy/AdvReac Type Severity Reaction Status Date / Time codeine Allergy Rash Verified 09/18/17 12:40 Review of Systems Constitutional: Reports: weakness Cardiovascular: Reports: orthopnea Respiratory: Reports: dyspnea Musculoskeletal: Reports: joint pain Neurological: Reports: weakness Psychiatric: Reports: abnormal sleep pattern. Denies: depression, anxiety, auditory hallucinations, visual hallucinations Endocrine: Reports: fatigue Mental Status Exam Patient orientation: Yes Person, Yes Time, Yes Place Level of alertness: Alert Patient appearance: Appropriate Behavior: calm, cooperative Psychomotor activity: Normal Eye contact: Minimal Contact Mood description: Euthymic/stable Affect description: full range, other (Mildly irritable) Speech pattern: Normal rate, Normal rhythm, Normal tone Speech volume: Normal Thought process: Intact, Goal Oriented Thought content: No Suicidal ideation, No Homicidal ideation Perceptual disturbances: No Reacting to internal stimuli, No Auditory hallucinations, No Visual hallucinations Attention span: Capable of Focused Attention Memory description: Grossly Intact Patient reliability: Reliable Historian Intelligence estimate: Average Judgment: Fair Insight: Partial Results - Vital Signs Vital signs: Temp Pulse Resp BP Pulse Ox 98.4 F 106 20 90/73 92 09/19/17 11:43 09/19/17 12:00 09/19/17 11:43 09/19/17 12:00 09/19/17 11:43 - Labs Labs: Laboratory Last Values WBC 9.6 K/mcL (4.3-11.1) 09/19/17 00:29 RBC 3.08 M/mcL (3.82-4.97) L 09/19/17 00:29 Hgb 8.4 g/dL (11.5-15.4) L 09/19/17 00:29 Hct 28.2 % (35.3-44.9) L 09/19/17 00:29 MCV 91.6 fL (83.0-100.0) 09/19/17 00:29 MCH 27.3 pg (28.0-33.3) L 09/19/17 00:29 MCHC 29.8 g/dL (31.6-35.5) L 09/19/17 00:29 RDW 17.7 % (11.5-14.5) H 09/19/17 00:29 Plt Count 207 K/mcL (140-400) 09/19/17 00:29 MPV 11.3 fL (9.4-12.4) 09/19/17 00:29 Immature Gran % 0.5 % (0-4) 09/19/17 00:29 Seg Neutrophils % 70.8 % 09/19/17 00:29 Lymphocytes % 17.0 % 09/19/17 00: Monocytes % 10.4 % 09/19/17 00: Eosinophils % 0.9 % 09/19/17 00: Basophils % 0.4 % 09/19/17 00:29 Neutrophils # 6.8 K/mcL (1.6-8.9) 09/19/17 00:29 Lymphocytes # 1.6 K/mcL (0.6-4.6) 09/19/17 00:29 Monocytes # 1.0 K/mcL (0.0-1.3) 09/19/17 00:29 Eosinophils # 0.1 K/mcL (0.0-0.6) 09/19/17 00:29 Basophils # 0.0 K/mcL (0.0-0.2) 09/19/17 00:29 Immature Plt Fraction 3.5 % (1.1-6.1) 09/19/17 00:29 PT 18.8 Seconds (9.4-12.1) H 09/18/17 17:21 INR 1.7 09/18/17 17:21 APTT 56.0 Seconds (26.0-36.0) H 09/19/17 09:40 Sodium 134 mEq/L (136-145) L 09/19/17 00:29 Potassium 4.4 mEq/L (3.5-5.1) 09/19/17 00:29 Chloride 102 mEq/L (98-107) 09/19/17 00:29 Carbon Dioxide 22 mEq/L (23-29) L 09/19/17 00:29 BUN 65 mg/dL (8-23) H 09/19/17 00:29 Creatinine 2.77 mg/dL (0.60-1.20) H 09/19/17 00:29 Est GFR ( Amer) 21 (> 60) L 09/19/17 00:29 Est GFR (Non-Af Amer) 17 (> 60) L 09/19/17 00:29 BUN/Creatinine Ratio 23 (6-26) 09/19/17 00:29 Glucose 190 mg/dL (70-105) H 09/19/17 00:29 POC Glucose 151 (58-89) H 09/19/17 11:51 Est Mean Plasma Glucose 114 mg/dl 09/19/17 00: Hemoglobin A1c 5.6 % (-5.6) 09/19/17 00: Calculated Osmolality 302 (280-300) H 09/19/17 00: Calcium 8.4 mg/dL (8.6-10.3) L 09/19/17 00: Magnesium 2.2 mg/dL (1.6-2.6) 09/19/17 00: Total Bilirubin 1.0 mg/dL (0.3-1.0) 09/19/17 00: Direct Bilirubin 0.5 mg/dL (0.0-0.2) H 09/19/17 00: Indirect Bilirubin 0.5 mg/dL (0.0-1.2) 09/19/17 00:29 AST 79 Units/L (13-39) H 09/19/17 00:29 ALT 146 Units/L (7-52) H 09/19/17 00:29 Alkaline Phosphatase 78 Units/L (34-104) 09/19/17 00:29 Troponin I 0.07 ng/mL (< 0.04) H* 09/19/17 00:29 B-Natriuretic Peptide 1489 pg/mL (Less than 100) H 09/18/17 13:11 Serum Total Protein 6.0 g/dL (6.4-8.9) L 09/19/17 00:29 Albumin 3.1 g/dL (3.5-5.7) L 09/19/17 00:29 Globulin 2.9 g/dL (2.4-3.5) 09/19/17 00: Albumin/Globulin Ratio 1.1 (1.1-2.2) 09/19/17 00:29 Triglycerides 85 mg/dL (< 150) 09/19/17 00:29 Cholesterol 74 mg/dL (< 200) 09/19/17 00: LDL Cholesterol, Calc 37 mg/dL (0-99) 09/19/17 00: VLDL Cholesterol, Calc 17 mg/dL (< 31) 09/19/17 00:29 HDL Cholesterol 20 mg/dL (40-59) L 09/19/17 00:29 Cholesterol/HDL Ratio 3.7 (0-4.9) 09/19/17 00:29 Lipase 37 Units/L (11-82) 09/18/17 13:11 TSH 8.262 mcIU/mL (0.340-5.600) H 09/18/17 13:11 Urine Color Dark Yellow (Yellow) 09/18/17 13:31 Urine Clarity Clear (Clear) 09/18/17 13:31 Urine pH 5.5 pH Units (5.0-8.0) 09/18/17 13:31 Ur Specific [place] 1.020 (1.010-1.025) 09/18/17 13:31 Urine Protein 100 mg/dL (Neg-Trace) H 09/18/17 13:31 Urine Glucose (UA) Normal mg/dL (Normal) 09/18/17 13:31 Urine Ketones Trace mg/dL (Negative) H 09/18/17 13:31 Urine Blood Negative (Negative) 09/18/17 13:31 Urine Nitrite Negative (Negative) 09/18/17 13:31 Urine Bilirubin Small (Negative) H 09/18/17 13:31 Urine Urobilinogen Normal mg/dL (Normal) 09/18/17 13:31 Ur Leukocyte Esterase Moderate (Negative) H 09/18/17 13:31 Urine Microscopic WBC 15-30 per hpf (0-3) H 09/18/17 13:31 Ur Squamous Epith Cells Many per lpf (None-Few) H 09/18/17 13:31 Ur Transition Epith Cell Few per hpf (None-Few) 09/18/17 13:31 Ur Renal Epithelial Cell Few per hpf (None-Few) 09/18/17 13:31 Urine Bacteria Few per hpf (None-Few) 09/18/17 13:31 Hyaline Casts Few per lpf (None-Few) 09/18/17 13:31 Ur Culture Indicated? NO (NO) 09/18/17 13:31 - Impressions Impressions Retroperitoneum Ultrasound 09/18/17 19:55 IMPRESSION: Bilateral renal cortical thinning with bilateral renal cortical cysts. D/ / David Tao MD / David Tao MD Interpreting Provider: David Tao MD Consult Discharge Plan - Plan Referrals: ADIN,CARDIOLOGY [Other] (OFFICE WILL CALL PATIENT AT HOME WITH FOLLOW UP APPOINTMENT) Augustin Eid DO [Primary Care Provider] - 09/30/17 9:30 am
--- NOTE | 2017-09-19 13:34 | Internal Med Progress Note ---
Date of Encounter: 09/22/17 Time of Encounter: 13:31 - Assessment and plan (1) Congestive heart failure Status: Acute Assessment and plan: Patient's ejection fraction is 20-25%. Very poorly controlled congestive heart failure. This is acute exacerbation of her systolic congestive heart failure. Cardiology on the board. We will follow the recommendations from cardiology. Qualifiers: Congestive heart failure type: combined Congestive heart failure chronicity : acute on chronic Qualified Code(s): I50.43 - Acute on chronic combined systolic (congestive) and diastolic (congestive) heart failure (2) [id number] kidney injury Status: Acute Assessment and plan: It is known to have a chronic kidney disease. This is a worsening of kidney function. This is acute on chronic kidney injury. Nephrology on the board. We will follow the recommendations from nephrology. Qualifiers: Acute renal failure type: unspecified Chronic kidney disease stage: stage 3 (moderate) Qualified Code(s): N17.9 - Acute kidney failure, unspecified; N18.3 - Chronic kidney disease, stage 3 (moderate); N18.3 - Chronic kidney disease, stage 3 (moderate) (3) Diabetes mellitus type 2 in obese Status: Chronic Assessment and plan: Patient is known to have a diabetes mellitus. Patient is presently on insulin. We will follow the recommendations from subtendinous insulin order set. (4) Hypertension Status: Chronic Assessment and plan: Patient has blood pressure is very well controlled at this time. We will resume home medication. Qualifiers: Hypertension type: essential hypertension Qualified Code(s): I10 - Essential (primary) hypertension (5) Anxiety Status: Chronic Assessment and plan: Patient has a lot of anxiety issues. We will follow the recommendations from psychiatric (6) DVT prophylaxis Status: Acute - Subjective Interval history: Patient seen and examined. Chart reviewed. Next and patient is comfortably lying in bed. Patient was short of breath yesterday. Patient denies chest pain, nausea, vomiting, abdominal pain, dizziness and diarrhea. - Constitutional Vitals: Temp Pulse Resp BP Pulse Ox 98.4 F 106 20 90/73 92 09/19/17 11:43 09/19/17 12:00 09/19/17 11:43 09/19/17 12:00 09/19/17 11:43 General appearance: Present: cooperative, mild distress (Respiratory), A&O X 3, morbidly obese, pleasant, answers questions appropriately - Head Head exam: Present: atraumatic, normocephalic - Eye Eye exam: Present: PERRL, conjuntiva pink, sclera anicteric Pupils: Present: PERRL - Neck Neck exam general surgery: Present: supple, trachea midline. Absent: lymphadenopathy - Respiratory Respiratory exam: Present: CTAB. Absent: accessory muscle use, rales, rhonchi, wheezes - Cardiovascular Cardiovascular exam: Present: RRR, +S1, +S2. Absent: diastolic murmur, gallop, rubs, systolic murmur - GI/Abdominal GI/Abdominal exam: Present: normal bowel sounds, soft, no peritoneal signs. Absent: distended, tenderness - Extremities Exam Extremities exam: Present: warm, radial pulses palpable and symmetrical. Absent : calf tenderness, cyanotic, pedal edema - Neurological Exam Neurological exam: Present: CN II-XII intact, oriented X3, no focal deficits. Absent: pronater drift, facial droop, speech deficit - Skin Skin exam: Present: dry, intact Internal Medicine: Result - Labs CBC & Chem 7: 09/20/17 05:32 09/20/17 05:32 Labs: Short CBC 09/19/17 Range/Units 00:29 WBC 9.6 (4.3-11.1) K/mcL Hgb 8.4 L (11.5-15.4) g/dL Hct 28.2 L (35.3-44.9) % Plt Count 207 (140-400) K/mcL Neutrophils # 6.8 (1.6-8.9) K/mcL BMP 09/19/17 00:29 Sodium 134 L Potassium 4.4 Chloride 102 Carbon Dioxide 22 L BUN 65 H Creatinine 2.77 H Glucose 190 H Calcium 8.4 L Cardiac Enzymes 09/18/17 09/19/17 Range/Units 19:48 00:29 Troponin I 0.08 H* 0.07 H* (< 0.04) ng/mL Liver Function 09/19/17 09/19/17 Range/Units 00:29 00:29 Total Bilirubin 1.0 1.0 (0.3-1.0) mg/dL Direct Bilirubin 0.5 H (0.0-0.2) mg/dL AST 79 H 80 H (13-39) Units/L ALT 146 H 146 H (7-52) Units/L Alkaline Phosphatase 78 78 (34-104) Units/L Albumin 3.1 L 3.1 L (3.5-5.7) g/dL - ABG Interpretation ABG results: PT/INR, D-dimer PT 18.8 Seconds (9.4-12.1) H 09/18/17 17:21 - Impressions Impressions Retroperitoneum Ultrasound 09/18/17 19:55 IMPRESSION: Bilateral renal cortical thinning with bilateral renal cortical cysts. D/ / David Tao MD / David Tao MD Interpreting Provider: David Tao MD Consult Discharge Plan - Plan Referrals: ADIN,CARDIOLOGY [Other] (OFFICE WILL CALL PATIENT AT HOME WITH FOLLOW UP APPOINTMENT) Augustin Eid DO [Primary Care Provider] - 09/30/17 9:30 am Prescriptions: Amiodarone [Cordarone] 200 mg PO BID #120 tablet LORazepam [Ativan] 0.5 mg PO BID PRN #7 tablet PRN Reason: Anxiety Morphine Oral CONC [Roxanol] 0.25 ml PO Q4H PRN #30 ml PRN Reason: Dyspnea
[2017-09-19] MEDS ORDERED: Albumin 25% 25gram/100mL 25 GM/100 ML IV.SOLN IVC SCH ×2 (14:15→21:00)
--- NOTE | 2017-09-19 14:18 | Nephrology Consult Note ---
Date of Encounter: 09/19/17 Time of Encounter: 14:14 Assessment and Plan (1) Rxfft-aw-iviskwy kidney injury Current Visit: No Status: Acute Acute kidney injury on CKG stage IIIb, likely secondary to acute exacerbation of systolic heart failure resulting in fluid overload. Creatinine slightly worse today, likely secondary to decreased perfusion due to fluid overload as well as mild hypotension. Given the patient's concurrent anemia and apparent active cardiac disease we will transfuse 2 units with 25 g of 25% albumin and 40 mg of IV Lasix in between each unit. Reevaluate renal status in the morning , no indications for renal replacement therapy at this time. Agree with fluid restriction. Follow-up nephro protective strategy including avoiding nephrotoxins and dose medications based on GFR. Thank you for the consultation , will continue to follow. Qualifiers: Acute renal failure type: unspecified Chronic kidney disease stage: stage 3 (moderate) Qualified Code(s): N17.9 - Acute kidney failure, unspecified; N18.3 - Chronic kidney disease, stage 3 (moderate); N18.3 - Chronic kidney disease, stage 3 (moderate) (2) Congestive heart failure Current Visit: No Status: Acute Diuresis and blood products as above, further management per primary and cardiology. Qualifiers: Congestive heart failure type: combined Congestive heart failure chronicity : acute on chronic Qualified Code(s): I50.43 - Acute on chronic combined systolic (congestive) and diastolic (congestive) heart failure (3) NSTEMI (non-ST elevated myocardial infarction) Current Visit: No Status: Acute further management per primary and cardiology. (4) Diabetes mellitus type 2 in obese Current Visit: Yes Status: Chronic (5) Hypertension Current Visit: No Status: Chronic Blood pressure low normal. Agree with holding losartan in the setting of low normal blood pressure and a JANENE, also agree with holding amlodipine Qualifiers: Hypertension type: essential hypertension Qualified Code(s): I10 - Essential (primary) hypertension (6) Anemia Current Visit: Yes Status: Chronic Baseline appears to be around 8. We will transfuse 2 units given concerns for active cardiac disease and renal hypoperfusion. Qualifiers: Anemia type: unspecified type Qualified Code(s): D64.9 - Anemia, unspecified History of Present Illness - Reason for Consult Consult date: 09/19/17 Acute Kidney Injury, Chronic Kidney Disease Requesting physician: Finn Nazario - Chief Complaint Dyspnea - History of Present Illness Patient is a 71-year-old female with history of systolic heart failure, CKD stage III who presents with shortness of breath. Patient states that she has had worsening shortness of breath for the past several weeks and eventually got tired of not feeling well so presented to the hospital. She states she normally sleeps sitting up with 2 pillows. She reports worsening lower extremity edema. She denies chest pain, decreased appetite, nausea, vomiting, diarrhea, confusion. Past Med Surg Social Fam HX - Past Medical History Medical history: arthritis, cancer (Cervical w/total hysterectomy), cardiomyopathy, CHF, diabetes, hyperlipidemia, hypertension Psychiatric history: anxiety - Past Surgical History Surgical History: appendectomy, cholecystectomy, hysterectomy - Social History Smoking Status: Former smoker Packs per day: 1PPWeek - Reports quitting 40 years ago Alcohol use: none Drug use: none - Family History Son Race: Family Member Ethnicity: Non- Living Status: Cause of : Lymphoma Hx Family Cancer: Yes (Lymphoma) Father Race: Family Member Ethnicity: Non- Living Status: Age at : 55 Cause of : [place] Hx Family Cardiac Disorders: Yes ([place], CAD, HTN, HLD) Mother Race: Family Member Ethnicity: Non- Living Status: Age at : 57 Cause of : CAD Hx Family Cardiac Disorders: Yes (CAD, HTN, HLD) Brother Race: Family Member Ethnicity: Non- Living Status: Age at : 42 Cause of : Throat cancer Hx Family Cancer: Yes (Throat) Sister Race: Family Member Ethnicity: Non- Living Status: Age at : 62 Cause of : [place] Hx Family Cardiac Disorders: Yes ([place], HTN, HLD) Medications and Allergies Amlodipine Besylate 10 mg PO DAILY 08/08/17 [History] Cyclobenzaprine [Flexeril] 10 mg PO TID 08/08/17 [History] Gabapentin [Neurontin] 300 mg PO HS 08/08/17 [History] Losartan Potassium [Cozaar] 100 mg PO DAILY 08/08/17 [History] Polyethylene Glycol 3350 [MiraLAX Powder Bulk 17.9 Oz] 1 scoop PO DAILY [History] Sertraline [Zoloft] 50 mg PO DAILY 08/08/17 [History] Simvastatin [Zocor] 40 mg PO HS 08/08/17 [History] Tramadol HCl [Ultram] 50 mg PO QID PRN 08/08/17 [History] Aspirin [Lo-Dose Aspirin EC] 81 mg PO DAILY 30 Days #30 tablet. 08/13/17 [Rx] Oxygen 2 l .ROUTE AD 30 Days #1 each 08/13/17 [Rx] LORazepam [Ativan] 0.5 mg PO BID PRN 09/18/17 [History] Nystatin OINT [Mycostatin] 1 appl TP BID 09/18/17 [History] 3 Allergy/AdvReac Type Severity Reaction Status Date / Time codeine Allergy Rash Verified 09/18/17 12:40 Review of Systems All Systems: reviewed and no additional remarkable complaints except as stated Exam - Vital Signs Vital signs: Initial Vital Signs Temp Pulse Resp BP Pulse Ox 98.2 F 121 22 107/70 96 09/18/17 12:40 09/18/17 12:40 09/18/17 12:40 09/18/17 12:40 09/18/17 12:40 Vital Signs - Last 8 Hours Temp Pulse Resp BP Pulse Ox 09/19/17 13:48 99 99/82 09/19/17 13:05 89/44 09/19/17 12:00 106 90/73 09/19/17 11:50 114 93/70 09/19/17 11:43 98.4 F 110 20 84/72 92 09/19/17 10:00 104 104/70 09/19/17 09:00 101 104/67 09/19/17 08:14 96 97/67 94 09/19/17 07:22 91 94/69 09/19/17 07:18 98.4 F 102 19 97/67 93 Intake and Output 09/18/17 09/19/17 09/19/17 23:59 07:59 15:59 Intake Total 240 / 242.5 338 / 338 340 / 340 Output Total 0 / 0 Balance 240 / 242.5 338 / 338 340 / 340 Intake: IV Fluids 338 / 338 220 / 220 Heparin 25,000 UNIT/500 ML D5W 338 / 338 220 / 220 25,000 unit In 500 ml @ 14 UNIT /KG/HR 36.197 mls/hr IVC . [id number] QUIN Rx#:[id number] Oral 240 / 240 120 / 120 Output: Urine 0 / 0 Other: Meal Dinner Lunch Percent of Meal Consumed 100% 100% Stool Size Small Stool Consistency formed Stool Color Brown # Voids 1 # Bowel Movements 1 Weight 130.1 kg Blood Glucose* 168 161 151 Patient Weight 09/19/17 23:59 Weight 130.1 kg - General Appearance General appearance: well-developed, well-nourished, appears started age, obese EENT: ATNC, mucous membranes moist Neck: supple Respiratory: rales (Bibasilar) Cardiology: edema (2+ lower extremities bilaterally), regular rate, irregular rhythm Gastrointestinal: normoactive bowel sounds, no tenderness Integumentary: no rash, warm and dry Neurologic: no focal deficit, alert and oriented x3 Musculoskeletal: no erythema, no cyanosis, no clubbing Results - Lab Results 09/19/17 00:29 09/19/17 00:29 Most recent lab results Calcium 8.4 mg/dL (8.6-10.3) L 09/19/17 00:29 Magnesium 2.2 mg/dL (1.6-2.6) 09/19/17 00:29 Consult Discharge Plan - Plan Referrals: ADIN,CARDIOLOGY [Other] (OFFICE WILL CALL PATIENT AT HOME WITH FOLLOW UP APPOINTMENT) Augustin Eid DO [Primary Care Provider] - 09/30/17 9:30 am
--- NOTE | 2017-09-19 14:56 | Palliative - Consult Note ---
Date of Encounter: 09/19/17 Time of Encounter: 14:50 - Assessment and Plan (1) Dyspnea Current Visit: No Status: Acute Assessment and plan: Received Lasix 40 IV this am, states she is breathing better than on admission, although she does appear in mild distress. Continues with supportive oxygen. She has been ordered 2u rbc today. Prescriptions written for comfort meds if she discharges as planned tomorrow. Qualifiers: Dyspnea type: orthopnea Qualified Code(s): R06.01 - Orthopnea (2) Counseling regarding advanced care planning and goals of care Current Visit: Yes Status: Acute Assessment and plan: Patient has stated today, she does not want any further aggressive intervention , and no cardiac procedures. She confirms this at my visit, and states "I gave Doctor until tomorrow to tune my up and I am going home, and do not want to come back". Discussed code status at length and she wants nothing resuscitative. She desires DNR-Comfort care. Discussed with pt she is appropriate for hospice care - she is agreeable annd would like services set up upon discharge. Consult called to Stephanie [facility] hospice manager. Patient already had [facility] home health and [facility] in place. Stephanie stated they would be able to admit pt in her current living arrangement, and will have social sciences lecturer arrange placement if/when her current living situation is unsafe. D/W Dr. Leon who plans on discharging tomorrow am with [facility] hospice. Prescriptions written for low dose opioids for dyspnea, she currently takes Tramadol at home for pain and appears she already has Lorazepam as well. (3) Congestive heart failure Current Visit: No Status: Acute Qualifiers: Congestive heart failure type: combined Congestive heart failure chronicity : acute on chronic Qualified Code(s): I50.43 - Acute on chronic combined systolic (congestive) and diastolic (congestive) heart failure (4) Qwzzz-yq-aqcaxid kidney injury Current Visit: No Status: Acute Qualifiers: Acute renal failure type: unspecified Chronic kidney disease stage: stage 3 (moderate) Qualified Code(s): N17.9 - Acute kidney failure, unspecified; N18.3 - Chronic kidney disease, stage 3 (moderate); N18.3 - Chronic kidney disease, stage 3 (moderate) (5) Respiratory failure with hypoxia Current Visit: No Status: Acute Qualifiers: Chronicity: acute on chronic Qualified Code(s): J96.21 - Acute and chronic respiratory failure with hypoxia Palliative-CN HPI - Data of Consult Consult date: 09/19/17 Requesting Physician: Nash Johnson Primary Care Provider: Augustin Eid, - Consult Narrative History of present illness: Ms. John is a 71 year old female with history of recent NSTEMI, cardiac cath, who presents with increasing shortness of breath that worsened within 24 hours of presentation to the hospital. PMH of arthritis, previous cervical cancer that resulted in complete hysterectomy, diabetes controlled with oral antihyperglycemic medications, HTN, HLD, CKD stage 3, and recent NSTEMI and diagnosis of CHF EF 20-25% 07/2017. During previous hospitalization her troponin peaked at 6.14 and she declined LHC. She followed-up with Dr. العراقي as outpt and was scheduled for LHC 09/24/17. She has refused any intervention from cardiology other than medication management. She could not tolerate Cardizem r/ t hypotension and was transitioned to Amiodarone. This will be transitioned to oral medication this evening. She also has acute on chronic kidney injury and nephrology has been consulted on pt. Upon my visit, she is short of breath at rest, but states it is better than on admission. She states she only has siblings, and children who are estranged. She does not get to see her siblings often, but enjoys her support through [facility] and her care through [facility]. CC: Nash Johnson Past Med Surg Social Fam HX - Past Medical History Medical history: arthritis, cancer (Cervical w/total hysterectomy), cardiomyopathy, CHF, diabetes, hyperlipidemia, hypertension Psychiatric history: anxiety - Past Surgical History Surgical History: appendectomy, cholecystectomy, hysterectomy - Social History Smoking Status: Former smoker Packs per day: 1PPWeek - Reports quitting 40 years ago Alcohol use: none Drug use: none - Family History Son Race: Family Member Ethnicity: Non- Living Status: Cause of : Lymphoma Hx Family Cancer: Yes (Lymphoma) Father Race: Family Member Ethnicity: Non- Living Status: Age at : 55 Cause of : [place] Hx Family Cardiac Disorders: Yes ([place], CAD, HTN, HLD) Mother Race: Family Member Ethnicity: Non- Living Status: Age at : 57 Cause of : CAD Hx Family Cardiac Disorders: Yes (CAD, HTN, HLD) Brother Race: Family Member Ethnicity: Non- Living Status: Age at : 42 Cause of : Throat cancer Hx Family Cancer: Yes (Throat) Sister Race: Family Member Ethnicity: Non- Living Status: Age at : 62 Cause of : [place] Hx Family Cardiac Disorders: Yes ([place], HTN, HLD) Medications and Allergies Amlodipine Besylate 10 mg PO DAILY 08/08/17 [History] Cyclobenzaprine [Flexeril] 10 mg PO TID 08/08/17 [History] Gabapentin [Neurontin] 300 mg PO HS 08/08/17 [History] Losartan Potassium [Cozaar] 100 mg PO DAILY 08/08/17 [History] Polyethylene Glycol 3350 [MiraLAX Powder Bulk 17.9 Oz] 1 scoop PO DAILY [History] Sertraline [Zoloft] 50 mg PO DAILY 08/08/17 [History] Simvastatin [Zocor] 40 mg PO HS 08/08/17 [History] Tramadol HCl [Ultram] 50 mg PO QID PRN 08/08/17 [History] Aspirin [Lo-Dose Aspirin EC] 81 mg PO DAILY 30 Days #30 tablet.dr 08/13/17 [Rx] Oxygen 2 l .ROUTE AD 30 Days #1 each 08/13/17 [Rx] LORazepam [Ativan] 0.5 mg PO BID PRN 09/18/17 [History] Nystatin OINT [Mycostatin] 1 appl TP BID 09/18/17 [History] 3 Allergy/AdvReac Type Severity Reaction Status Date / Time codeine Allergy Rash Verified 09/18/17 12:40 All systems: reviewed and no additional remarkable complaints except as stated ( shortness of breath and wheezing at rest, anxiety, depression) Palliative Care-Exam - Constitutional Vitals: Temp Pulse Resp BP Pulse Ox 98.4 F 99 20 99/82 92 09/19/17 11:43 09/19/17 13:48 09/19/17 11:43 09/19/17 13:48 09/19/17 11:43 General appearance: Present: no acute distress - Head Head Exam: Present: normal inspection, normocephalic - Eye Eye exam: Present: normal appearance, PERRL - Respiratory Respiratory exam: Present: decreased breath sounds, CTAB - Cardiovascular Cardiovascular exam: Present: systolic murmur, tachycardia - GI/Abdominal Exam GI/Abdominal exam: Present: normal bowel sounds, soft - Extremities Exam Additional comments: 1-2+ bilateral lower extremity edema - Neurological Exam Neurological exam: Present: alert, oriented X3, strengths equal and symetr throughout - Psychiatric Psychiatric exam: Present: anxious - Skin Skin exam: Present: dry, pallor, warm Internal Medicine - CN: Reslt - Labs CBC & Chem 7: 09/19/17 00:29 09/19/17 00:29 Labs: Short CBC 09/19/17 Range/Units 00:29 WBC 9.6 (4.3-11.1) K/mcL Hgb 8.4 L (11.5-15.4) g/dL Hct 28.2 L (35.3-44.9) % Plt Count 207 (140-400) K/mcL Neutrophils # 6.8 (1.6-8.9) K/mcL BMP 09/19/17 00:29 Sodium 134 L Potassium 4.4 Chloride 102 Carbon Dioxide 22 L BUN 65 H Creatinine 2.77 H Glucose 190 H Calcium 8.4 L Cardiac Enzymes 09/18/17 09/19/17 Range/Units 19:48 00:29 Troponin I 0.08 H* 0.07 H* (< 0.04) ng/mL Liver Function 09/19/17 09/19/17 Range/Units 00:29 00:29 Total Bilirubin 1.0 1.0 (0.3-1.0) mg/dL Direct Bilirubin 0.5 H (0.0-0.2) mg/dL AST 79 H 80 H (13-39) Units/L ALT 146 H 146 H (7-52) Units/L Alkaline Phosphatase 78 78 (34-104) Units/L Albumin 3.1 L 3.1 L (3.5-5.7) g/dL - ABG Interpretation ABG results: PT/INR, D-dimer PT 18.8 Seconds (9.4-12.1) H 09/18/17 17:21 - Impressions Impressions Retroperitoneum Ultrasound 09/18/17 19:55 IMPRESSION: Bilateral renal cortical thinning with bilateral renal cortical cysts. D/ / David Tao MD / David Tao MD Interpreting Provider: David Tao MD Consult Discharge Plan - Plan Referrals: ADIN,CARDIOLOGY [Other] (OFFICE WILL CALL PATIENT AT HOME WITH FOLLOW UP APPOINTMENT) Augustin Eid DO [Primary Care Provider] - 09/30/17 9:30 am Palliative Quality Palliative Quality: Screen for Code Status: Yes, Screen for Goals of Care: Yes, Screen for Pain: Yes, If Pain Regimen Started, Initiate Bowel Regimen: NA, Screen for Nausea/Vomitting: Yes Code Status: 09/19/17 14:39 DNR [Resuscitation Status: Active] [RES] Routine Comment: Resuscitation Status: DNR-Comfort Care
[2017-09-19] MEDS ORDERED: 0.9 % Sodium Chloride 250 ML ONE (16:02)
[2017-09-19] MEDS ORDERED: Furosemide 40 MG/4 ML VIAL IVP ONE (19:00)
[2017-09-19] MEDS: *HR* Amiodarone 200 MG TABLET PO SCH (21:09)
[2017-09-19] MEDS: *HR* Heparin 5,000 UNIT/ML VIAL SQ SCH (21:09)
[2017-09-19] MEDS: Gabapentin 300 MG CAPSULE PO SCH (21:09)
[2017-09-20] MEDS ORDERED: 0.9 % Sodium Chloride 250 ML ONE (01:36)
[2017-09-20] MEDS: *HR* Heparin 5,000 UNIT/ML VIAL SQ SCH (04:50)
[2017-09-20 05:42] LABS: Basophils % 0.3 %; Eosinophils # 0.2 K/mcL (0.0-0.6); Eosinophils % 2.5 %; Hematocrit 33.7 % (35.3-44.9); Immature Granulocytes % 0.8 % (0-4); Lymphocytes # 1.5 K/mcL (0.6-4.6); Lymphocytes % 17.5 %; Mean Corpuscular Volume 90.1 fL (83.0-100.0); Mean Platelet Volume 11.3 fL (9.4-12.4); Monocytes # 1.1 K/mcL (0.0-1.3); Monocytes % 13.2 %; Neutrophils # 5.7 K/mcL (1.6-8.9); Platelet Count 191 K/mcL (140-400); Red Blood Count 3.74 M/mcL (3.82-4.97); Red Cell Distribution Width 18.4 % (11.5-14.5); Segmented Neutrophils % 65.7 %
[2017-09-20 05:44] LABS: Hemoglobin 10.1 g/dL (11.5-15.4)
[2017-09-20 05:59] LABS: Albumin 3.6 g/dL (3.5-5.7); Albumin/Globulin Ratio 1.2 (1.1-2.2); Bilirubin,Total 1.9 mg/dL (0.3-1.0); Calcium 8.7 mg/dL (8.6-10.3); Potassium 4.4 mEq/L (3.5-5.1); Total Protein 6.6 g/dL (6.4-8.9)
[2017-09-20 07:35] VITALS: BP 112/83
[2017-09-20] MEDS: Insulin LISPRO 300 UNITS/3 ML VIAL SQ SCH (08:12)
[2017-09-20] MEDS: *HR* Amiodarone 200 MG TABLET PO SCH (08:17)
[2017-09-20] MEDS: Nystatin OINT 15 GM TUBE TP SCH (08:18)
[2017-09-20] MEDS: Aspirin Enteric Coated 81 MG Tablet PO SCH (08:18)
--- NOTE | 2017-09-20 09:44 | Discharge Summary ---
Date of Encounter: 09/22/17 Time of Encounter: 09:42 - Discharge Diagnosis (1) Congestive heart failure Priority: Primary Status: Acute Qualifiers: Congestive heart failure type: combined Congestive heart failure chronicity : acute on chronic Qualified Code(s): I50.43 - Acute on chronic combined systolic (congestive) and diastolic (congestive) heart failure (2) Lxntx-yj-qutnnrs kidney injury Priority: Primary Status: Acute Qualifiers: Acute renal failure type: unspecified Chronic kidney disease stage: stage 3 (moderate) Qualified Code(s): N17.9 - Acute kidney failure, unspecified; N18.3 - Chronic kidney disease, stage 3 (moderate); N18.3 - Chronic kidney disease, stage 3 (moderate) (3) Diabetes mellitus type 2 in obese Priority: Secondary Status: Chronic (4) Hypertension Priority: Secondary Status: Chronic Qualifiers: Hypertension type: essential hypertension Qualified Code(s): I10 - Essential (primary) hypertension (5) Anxiety Priority: Secondary Status: Chronic (6) DVT prophylaxis Priority: Secondary Status: Acute - Discharge Medications Prescriptions: Amiodarone [Cordarone] 200 mg PO BID #120 tablet LORazepam [Ativan] 0.5 mg PO BID PRN #7 tablet PRN Reason: Anxiety Morphine Oral CONC [Roxanol] 0.25 ml PO Q4H PRN #30 ml PRN Reason: Dyspnea Home Medications: Amlodipine Besylate 10 mg PO DAILY 08/08/17 [History] Cyclobenzaprine [Flexeril] 10 mg PO TID 08/08/17 [History] Gabapentin [Neurontin] 300 mg PO HS 08/08/17 [History] Losartan Potassium [Cozaar] 100 mg PO DAILY 08/08/17 [History] Polyethylene Glycol 3350 [MiraLAX Powder Bulk 17.9 Oz] 1 scoop PO DAILY [History] Sertraline [Zoloft] 50 mg PO DAILY 08/08/17 [History] Simvastatin [Zocor] 40 mg PO HS 08/08/17 [History] Tramadol HCl [Ultram] 50 mg PO QID PRN 08/08/17 [History] Aspirin [Lo-Dose Aspirin EC] 81 mg PO DAILY 30 Days #30 tablet.dr 08/13/17 [Rx] Oxygen 2 l .ROUTE AD 30 Days #1 each 08/13/17 [Rx] Nystatin OINT [Mycostatin] 1 appl TP BID 09/18/17 [History] Morphine Oral CONC [Roxanol] 0.25 ml PO Q4H PRN #30 ml 09/19/17 [Rx] Amiodarone [Cordarone] 200 mg PO BID #120 tablet 09/20/17 [Rx] LORazepam [Ativan] 0.5 mg PO BID PRN #7 tablet 09/20/17 [Rx] Allergies/Adverse Reactions: 3 Allergy/AdvReac Type Severity Reaction Status Date / Time codeine Allergy Rash Verified 09/18/17 12:40 Procedures/tests Complete & Pending: Procedures Performed prior 72 hours Category Date Time Status US retroperitoneal limited [US] Routine Exams 09/18/17 19:55 Completed Date of admission: 09/18/17 17:51 Primary care physician: Augustin Eid, Consults: 09/18/17 19:57 Consult to Nephrology [CONS] Routine Consulting Provider: Kidney Leia/MICHELLE/CAMRYN/TERA Reason for Consult: Patient is being admitted for acute exacerbation of CHF w /SOB/dyspnea/orthopnea. Pt. will require IVP lasix. Current creatinine 2.59 and GFR 18. Pt. has hx of HTN and HLD. Will continue amlodipine if SBP >110. Will hold Cozaar and Zocor d/t current renal dysfunction. Retroperitoneal US ordered. Call Completed: Yes 09/18/17 21:03 Consult to Psychiatry [CONS] Routine Consulting Provider: Psychiatry Leia Reason for Consult: Patient reports having auditory and visual hallucinations today several times. Pt. does not have a formal psychiatric dx except for anxiety. Call Completed: Yes 09/19/17 13:57 Consult to Palliative Care [CONS] Routine Comment: Consulting Provider: Palliative Care [place] Reason for Consult: Goals/plan of care/code status Call Completed: Yes Discharging clinician: Luis Leon - Patient Status Disposition: Hospice - Home Condition: Fair Functional capacity at discharge: wheelchair bound Overall status at discharge: patient is not back to baseline - Discharge Instructions Follow Up With: LEIA,CARDIOLOGY [Other] (OFFICE WILL CALL PATIENT AT HOME WITH FOLLOW UP APPOINTMENT) Augustin Eid DO [Primary Care Provider] - 09/30/17 9:30 am - Diet and Activity Activity: increase activity as tolerated Diet: diabetic diet Interval History: Ms. John is a 71 year old female with medical hx of arthritis, previous cervical cancer that resulted in complete hysterectomy, diabetes controlled with oral antihyperglycemic medications, HTN and HLD reports from the ED with chief complaint of shortness of breath and dyspnea. Patient states she is chronically short of breath but became more dyspneic and orthopneic over the past 24 hours. Patient reports she is normally 2 L O2 at home but had to use 3 L yesterday and today. She reports being constipated and nauseous for the past several days but had 3 bouts of diarrhea today. Pt. also reports auditory and visual hallucinations several times today for the first time. Pt. reports bilateral leg weakness but denies recent illness, fever, chills, vomiting, headache, cough, changes in vision, chest pain, palpitations, abdominal pain, constipation, numbness, tingling, dizziness, lightheadedness, pre-syncope, or syncope. Hospital course: Patient was hospitalized. Cardiology was consulted. Patient ejection fraction is 20-25%. Cardiology offered intervention in terms of cardiac catheterization. Patient refuse cardiac catheterization and any further intervention. Psychiatry was consult at and as per psychiatry. Patient is competent to take her decisions. Patient though have a issues regarding anxiety. But she is on appropriate medication for the same. Initially patient was started on IV amiodarone due to the hypotension secondary to the Cardizem drip. Patient tolerated oral amiodarone pretty well. Cardiology thinks that it is a time to call for palliative care/hospice. This issue was discussed with the patient at length. Patient agreed for a palliative care/hospice. Plan: Patient will be discharged from the hospital today. Patient will go home and arrangement from the home hospice has been done. Other medications are now in the oral form. Patient is comfortable at this point. All questions answered. Patient is going home with her own the right and hospice will take over from there. - Time Spent with Patient Total time spent providing and/or coordinating discharge services: - Constitutional Vitals: Temp Pulse Resp BP Pulse Ox 97.7 F 102 18 112/83 90 09/20/17 05:12 09/20/17 07:30 09/20/17 07:00 09/20/17 07:00 09/20/17 07:00 General appearance: Present: cooperative, mild distress (Respiratory), A&O X 3, morbidly obese, pleasant, answers questions appropriately - Head Head exam: Present: atraumatic, normocephalic - Eye Eye exam: Present: PERRL, conjuntiva pink, sclera anicteric Pupils: Present: PERRL - Neck Neck exam general surgery: Present: supple, trachea midline. Absent: lymphadenopathy - Respiratory Respiratory exam: Present: CTAB. Absent: accessory muscle use, rales, rhonchi, wheezes - Cardiovascular Cardiovascular exam: Present: RRR, +S1, +S2. Absent: diastolic murmur, gallop, rubs, systolic murmur - GI/Abdominal GI/Abdominal exam: Present: normal bowel sounds, soft, no peritoneal signs. Absent: distended, tenderness - Extremities Exam Extremities exam: Present: warm, radial pulses palpable and symmetrical. Absent : calf tenderness, cyanotic, pedal edema - Neurological Exam Neurological exam: Present: CN II-XII intact, oriented X3, no focal deficits. Absent: pronater drift, facial droop, speech deficit - Skin Skin exam: Present: dry, intact
== END 2017-09-20 13:00 | disposition hospice, home (50) | DRG 291 ==
LOC: 2NENU 12:17 → EMEROO 12:17 → ICNU 17:11 → 2NNU 17:45
PROVIDERS: ADMIT Internal Medicine; ATTEND Hospitalist